=== PATIENT | female | born 1955 | race Caucasian/White ===

== ENCOUNTER → 2017-08-12 07:18 | Outpatient (CLI) | payer OTHER, SELFPAY ==
[2017-08-13 07:11] LABS: Hep C Antibodies <0.1 s/co ratio (0.0-0.9)
== END ==
PROVIDERS: Family Provider Family Medicine; PCP Family Medicine; Visit Provider Family Medicine
DX: Z00.00 Encounter for general adult medical examination without abnormal findings (principal)
CPT/HCPCS: 36415; 86803

== ENCOUNTER → 2018-03-09 07:00 | Outpatient (CLI) | payer OTHER, SELFPAY ==
--- NOTE | 2018-03-09 07:03 | BI_ITS ---
MAMMOGRAPHY - BILATERAL SCREENING REASON FOR EXAM: Female, 62 years old. Routine annual screening examination. PERTINENT HISTORY: Mother with breast cancer. TECHNIQUE: Digital bilateral breast higinio (3D mammographic acquisition) in the CC and MLO projections. 2-D mediolateral oblique (MLO) and craniocaudad (CC) views of both breasts were obtained. CAD: Full Field Digital Mammography with Computer Added Detection was performed. COMPARISON: Comparison is made with prior study dated January 19, 2017 and January 14, 2016. FINDINGS: Breast Composition: The breasts are heterogeneously dense, which may obscure small masses. There are no dominant masses or suspicious calcifications. No other significant abnormalities are identified. There has been no significant change since the prior study. BI/SCREENING MAMM (CAD), BILAT IMPRESSION: Stable bilateral screening mammogram. Yearly follow-up mammogram recommended. (A) ASSESSMENT CATEGORY: BIRADS Category 1: Negative. A letter regarding these results will be sent to the patient by the facility within 30 days. Approximately 10% of breast cancers are not detected by mammography. A normal mammogram should not delay biopsy of a clinically suspicious abnormality. [id number] Electronically Signed: Leander Crandall MD at 9:39 EST Tel [phone], Service support ,
== END ==
PROVIDERS: Family Provider Family Medicine; PCP Family Medicine; Referring Provider Obstetrics & Gynecology; Visit Provider Obstetrics & Gynecology
DX: Z12.31 Encounter for screening mammogram for malignant neoplasm of breast (principal)
CPT/HCPCS: 77063; 77067

== ENCOUNTER → 2019-03-16 06:56 | Outpatient (CLI) | payer OTHER, SELFPAY ==
--- NOTE | 2019-03-16 06:59 | BI_ITS ---
MAMMOGRAPHY - BILATERAL SCREENING REASON FOR EXAM: Female, 63 years old. Routine annual screening examination. PERTINENT HISTORY: Mother with breast cancer. TECHNIQUE: Digital bilateral breast anne (3D mammographic acquisition) in the CC and MLO projections. 2-D mediolateral oblique (MLO) and craniocaudad (CC) views of both breasts were obtained. CAD: Full Field Digital Mammography with Computer Added Detection was performed. COMPARISON: Comparison is made with prior study dated March 09, 2018 and January 19, 2017. FINDINGS: Breast Composition: The breasts are heterogeneously dense, which may obscure small masses. There are no dominant masses or suspicious calcifications. No other significant abnormalities are identified. There has been no significant change since the prior study. BI/SCREEN MAMM (CAD) W/ANNE BILAT IMPRESSION: Stable bilateral screening mammogram. Yearly follow-up mammogram recommended. (A) ASSESSMENT CATEGORY: BIRADS Category 1: Negative. A letter regarding these results will be sent to the patient by the facility within 30 days. Approximately 10% of breast cancers are not detected by mammography. A normal mammogram should not delay biopsy of a clinically suspicious abnormality. [id number] Electronically Signed: Leander Crandall, at 9:32 EST , Service support ,
== END ==
PROVIDERS: Family Provider Family Medicine; PCP Family Medicine; Referring Provider Obstetrics & Gynecology; Visit Provider Obstetrics & Gynecology
DX: Z12.31 Encounter for screening mammogram for malignant neoplasm of breast (principal)
CPT/HCPCS: 77063; 77067

== ENCOUNTER → 2020-03-18 07:12 | Outpatient (CLI) | payer OTHER, SELFPAY ==
[2020-03-18 07:52] LABS: Erythrocyte Sedimentation Rate 8 mm/hr (0-30)
[2020-03-18 08:26] LABS: CRP < 2.90 mg/L (0.0-3.0); Rheumatoid Factor < 10.0 IU/mL (<15)
[2020-03-22 20:07] LABS: Anti-Nuclear Antibody Test Negative (.)
== END ==
PROVIDERS: PCP Family Medicine; Referring Provider Family Medicine; Visit Provider Family Medicine
DX: M25.50 Pain in unspecified joint (principal)
CPT/HCPCS: 36415; 85652; 86038; 86140; 86431

== ENCOUNTER → 2020-03-27 07:16 | Outpatient (CLI) | payer OTHER, SELFPAY ==
--- NOTE | 2020-03-27 07:24 | BI_ITS ---
MAMMOGRAPHY - BILATERAL SCREENING REASON FOR EXAM: Female, 64 years old. Routine annual screening examination. PERTINENT HISTORY: Mother with breast cancer. TECHNIQUE: Digital bilateral breast anne (3D mammographic acquisition) in the CC and MLO projections. 2-D mediolateral oblique (MLO) and craniocaudad (CC) views of both breasts were obtained. CAD: Full Field Digital Mammography with Computer Added Detection was performed. COMPARISON: Comparison is made with prior study dated 03/16/2019 and 03/09/2018. FINDINGS: Breast Composition: The breasts are heterogeneously dense, which may obscure small masses. There are no dominant masses or suspicious calcifications. Benign appearing bilateral axillary lymph nodes. No other significant abnormalities are identified. There has been no significant change since the prior study. BI/SCRN MAMM (CAD)W/ANNE BILAT IMPRESSION: Stable bilateral screening mammogram. Yearly follow-up mammogram recommended. (A) ASSESSMENT CATEGORY: BIRADS Category 2: Benign. A letter regarding these results will be sent to the patient by the facility within 30 days. Approximately 10% of breast cancers are not detected by mammography. A normal mammogram should not delay biopsy of a clinically suspicious abnormality. [id number] Electronically Signed: Leander Crandall MD at 8:37 EST , Service support ,
== END ==
PROVIDERS: PCP Family Medicine; Referring Provider Obstetrics & Gynecology; Visit Provider Obstetrics & Gynecology
DX: Z12.31 Encounter for screening mammogram for malignant neoplasm of breast (principal)
CPT/HCPCS: 77063; 77067

== ENCOUNTER 2020-04-12 05:22 | Day surgery (SDC) | payer SELFPAY ==
[2020-04-12] VITALS (10 sets, daily range): BP systolic 92–163; BP diastolic 7–134; PULSE 54–68; RESP 16; TEMP 36–36.6; O2SAT 16–100; BMI 25.2
[2020-04-12] MEDS: Lactated Ringers 1,000 ML 100 ML IV (06:05)
--- NOTE | 2020-04-12 06:11 | PCM.HP.STD ---
Problem List (1) Family history of colon cancer in mother Status: Acute History of Present Illness Date of Admission: 04/12/20 The patient is a 64 year old F who presents for a colonoscopy. Her previous colonoscopy was August 09, 2014. She has a very strong family history of colon problems. Her mother just had colon cancer resected. She has a sister who had a malignant polyp. Also a brother who has had a dysplastic polyp. Fortunately the patient herself has not had acute colonic pathology. Genetic testing on the patient's mother is pending. She otherwise feels well. No unexpected weight loss. No abdominal pain. No change in bowel habits. Past Medical History Allergies No Known Allergies Allergy (Verified 04/12/20 05:45) Home Medications: Ambulatory Orders Medication Instructions Recorded Aspirin [Aspirin, Baby] 81 mg PO DAILY@0800 08/06/14 Black Cohosh 80 mg PO DAILY 08/06/14 Calcium Carbonate/Vitamin D3 1 each PO BID 08/06/14 [Calcium 600 + Vit D 800 Tab] Smoking Status: Never smoker Review of Systems Constitutional: Denies: Weight Change Cardiovascular: Denies: Chest Pain Respiratory: Denies: Shortness of Breath Gastrointestinal: Denies: Abdominal Pain, Hematochezia, Melena Endocrine: Denies: Change in Body Habitus VTE Information - Inpt Only VTE Present on Admission: No - Physical Exam Vitals/I&O's: Vital Signs Temp Pulse Resp BP Pulse Ox 97.9 F 64 16 124/7 H 98 04/12/20 05:49 04/12/20 05:49 04/12/20 05:49 04/12/20 05:49 04/12/20 05:49 Oxygen Delivery Method Room Air Weight: 151 lb 2 oz Body Mass Index (BMI) 25.2 General: Alert, Oriented x3, Cooperative, No apparent distress HEENT: Atraumatic Oral: Moist Mucosa Lungs: Clear to auscultation, Normal air movement Cardiovascular: Regular rate, Regular Rhythm Abdomen: Bowel Sounds Present, Soft, Non Tender Extremities: No Calf Tenderness Neurological: - - Cognition intact Psych/Mental Status: Normal Affect Microbiology Past 72 Hours 04/11/20 13:00 Interface Orders SARS-CoV-2 Antigen (Rapid) - Final Current Medications Lactated Ringer's () 1,000 mls @ 100 mls/hr IV .Q10H BEVERLY Last Admin: 04/12/20 06:05 Dose: 100 mls/hr Documented by: Assessment/Plan All Active Problems Family history of colon cancer in mother (Acute) The patient presents via open access for a screening colonoscopy with possible biopsy or polypectomy is indicated. She is aware of the technique, benefit, risk, alternatives. She has had an opportunity to ask and have questions answered. We will proceed as noted. Juan Diego Flowers M.D., F.A.C.S.
--- NOTE | 2020-04-12 07:00 | OP.CCLET_ITS ---
04/12/2020 Munir Keyes Re : Colonoscopy procedure for Hanane Poncecathy Keyes This procedure was performed on Sunday, April 12, 2020. My impressions and recommendations are as follows: Impressions : - Non-thrombosed external hemorrhoids and internal hemorrhoids that prolapse with straining, but spontaneously regress to the resting position (Grade II) found on digital rectal exam. - Diverticulosis in the sigmoid colon. - Tortuous colon. - The examination was otherwise normal. - No specimens collected. Recommendations : - Discharge patient to home. - Resume previous diet. - Continue present medications. - Repeat colonoscopy in 5 years for surveillance. My findings are described in the full procedure note, which is enclosed. If I can be of further assistance, please feel free to contact me at Doctor phone number(s): Work: . Sincerely, Juan Diego Flowers MD 04/12/2020 6:59:00 AM This report has been signed electronically.
--- NOTE | 2020-04-12 07:00 | OP.COLON_ITS ---
Patient Name: Hanane Engel Procedure Date: 04/12/2020 6:19 AM Date of : 1955 Age: 64 Procedure: Colonoscopy Indications: Screening in patient at increased risk: Family history of 1st-degree relative with colorectal cancer Providers: Juan Diego Flowers MD Referring MD: Munir Keyes Medicines: Midazolam 5 mg IV, Meperidine 100 mg IV Patient Profile: Last Colonoscopy: July 2014. Complications: No immediate complications. Procedure: Pre-Anesthesia Assessment: - Prior to the procedure, a History and Physical was performed, and patient medications and allergies were reviewed. The patient's tolerance of previous anesthesia was also reviewed. The risks and benefits of the procedure and the sedation options and risks were discussed with the patient. All questions were answered, and informed consent was obtained. Prior Anticoagulants: The patient has taken no previous anticoagulant or antiplatelet agents. ASA Grade Assessment: I - A normal, healthy patient. After reviewing the risks and benefits, the patient was deemed in satisfactory condition to undergo the procedure. After I obtained informed consent, the scope was passed under direct vision. Throughout the procedure, the patient's blood pressure, pulse, and oxygen saturations were monitored continuously. The pediatric colonoscope was introduced through the anus and advanced to the cecum, identified by appendiceal orifice and ileocecal valve. The colonoscopy was technically difficult and complex due to a tortuous colon. Successful completion of the procedure was aided by increasing the dose of sedation medication. The patient tolerated the procedure well. The quality of the bowel preparation was good. The ileocecal valve and the appendiceal orifice were photographed. Moderate Sedation: Moderate (conscious) sedation was personally administered by the endoscopist. The following parameters were monitored: oxygen saturation, heart rate, blood pressure, and response to care. Total physician intraservice time was 20 minutes. Scope In: 6:32:49 AM Scope Withdrawal Time 0 hours 12 minutes 17 seconds Scope Out: 6:54:11 AM Total Procedure Duration Time 0 hours 21 minutes 22 seconds Findings: The digital rectal exam findings include non-thrombosed external hemorrhoids and internal hemorrhoids that prolapse with straining, but spontaneously regress to the resting position (Grade II). Scattered diverticula were found in the sigmoid colon. The colon (entire examined portion) was moderately tortuous. Advancing the scope required using manual pressure. The exam was otherwise without abnormality. Impression: - Non-thrombosed external hemorrhoids and internal hemorrhoids that prolapse with straining, but spontaneously regress to the resting position (Grade II) found on digital rectal exam. - Diverticulosis in the sigmoid colon. - Tortuous colon. - The examination was otherwise normal. - No specimens collected. Recommendation: - Discharge patient to home. - Resume previous diet. - Continue present medications. - Repeat colonoscopy in 5 years for surveillance. Procedure Code(s): --- Professional --- 47065, Colonoscopy, flexible; diagnostic, including collection of specimen(s) by brushing or washing, when performed (separate procedure) 88861, 59, Moderate sedation services provided by the same physician or other qualified health health care technician performing the diagnostic or therapeutic service that the sedation supports, requiring the presence of an independent trained observer to assist in the monitoring of the patient's level of consciousness and physiological status; initial 15 minutes of intraservice time, patient age 5 years or older Diagnosis Code(s): --- Professional --- Z80.0, Family history of malignant neoplasm of digestive organs K64.1, Second degree hemorrhoids K64.4, Residual hemorrhoidal skin tags K57.30, Diverticulosis of large intestine without perforation or abscess without bleeding Q43.8, Other specified congenital malformations of intestine CPT copyright 2017 [employer]. All rights reserved. The codes documented in this report are preliminary and upon test pilot review may be revised to meet current compliance requirements. Juan Diego Flowers MD 04/12/2020 6:59:00 AM This report has been signed electronically. Number of Addenda: 0 Note Initiated On: 04/12/2020 6:19 AM
== END 2020-04-12 07:51 | disposition home or self-care (01) ==
LOC: EN 05:24 → AC 05:24
PROVIDERS: PCP Family Medicine; Referring Provider Family Medicine; Visit Provider Surgery
PROC: 0DJD8ZZ Inspection of Lower Intestinal Tract, Via Natural or Artificial Opening Endoscopic (ICD-10-PCS; CPT 45378; principal; 2020-04-12 06:25)
DX: Z12.11 Encounter for screening for malignant neoplasm of colon (principal); Z80.0 Family history of malignant neoplasm of digestive organs; Z79.82 Long term (current) use of aspirin; K57.30 Diverticulosis of large intestine without perforation or abscess without bleeding; K64.4 Residual hemorrhoidal skin tags; K64.1 Second degree hemorrhoids; Q43.8 Other specified congenital malformations of intestine
CPT/HCPCS: 45378; 87426; 99152; 99153; C9803; J7120

== ENCOUNTER 2021-04-09 07:38 | Outpatient (CLI) | payer BC, SELFPAY ==
--- NOTE | 2021-04-09 07:42 | BI_ITS ---
MAMMOGRAPHY - BILATERAL SCREENING REASON FOR EXAM: Female, 65 years old. Routine annual screening examination. PERTINENT HISTORY: Mother with breast cancer. TECHNIQUE: Digital bilateral breast anne (3D mammographic acquisition) in the CC and MLO projections. 2-D mediolateral oblique (MLO) and craniocaudad (CC) views of both breasts were obtained. CAD: Full Field Digital Mammography with Computer Added Detection was performed. COMPARISON: Comparison is made with prior study dated 09/24/2020 and 03/16/2019. FINDINGS: Breast Composition: The breasts are heterogeneously dense, which may obscure small masses. There are no dominant masses or suspicious calcifications. No other significant abnormalities are identified. There has been no significant change since the prior study. BI/SCRN MAMM (CAD)W/ANNE BILAT IMPRESSION: Stable bilateral screening mammogram. Yearly follow-up mammogram recommended. (A) ASSESSMENT CATEGORY: BIRADS Category 1: Negative. A letter regarding these results will be sent to the patient by the facility within 30 days. Approximately 10% of breast cancers are not detected by mammography. A normal mammogram should not delay biopsy of a clinically suspicious abnormality. [id number] Electronically Signed: Leander Crandall MD at 9:13 EST ,
== END 2021-04-09 23:59 | disposition home or self-care (01) ==
LOC: OPBI 07:40
PROVIDERS: PCP Family Medicine; Referring Provider Obstetrics & Gynecology; Visit Provider Obstetrics & Gynecology
DX: Z12.31 Encounter for screening mammogram for malignant neoplasm of breast (principal)
CPT/HCPCS: 77063; 77067

== ENCOUNTER → 2022-04-22 | Outpatient (CLI) | payer BC, SELFPAY ==
--- NOTE | 2022-04-22 09:17 | BI_ITS ---
MAMMOGRAPHY - BILATERAL SCREENING REASON FOR EXAM: Female, 66 years old. Routine annual screening examination. PERTINENT HISTORY: Mother with breast cancer. TECHNIQUE: Digital bilateral breast anne (3D mammographic acquisition) in the CC and MLO projections. 2-D mediolateral oblique (MLO) and craniocaudad (CC) views of both breasts were obtained. CAD: Full Field Digital Mammography with Computer Added Detection was performed. COMPARISON: Comparison is made with prior study dated 04/09/2021 and 09/25/2019 FINDINGS: Breast Composition: The breasts are heterogeneously dense, which may obscure small masses. There are no dominant masses or suspicious calcifications. No other significant abnormalities are identified. There has been no significant change since the prior study. BI/SCRN MAMM (CAD)W/ANNE BILAT IMPRESSION: Stable bilateral screening mammogram. Yearly follow-up mammogram recommended. (A) ASSESSMENT CATEGORY: BIRADS Category 1: Negative. A letter regarding these results will be sent to the patient by the facility within 30 days. Approximately 10% of breast cancers are not detected by mammography. A normal mammogram should not delay biopsy of a clinically suspicious abnormality. [id number] Electronically Signed: Leander Crandall MD at 10:27 EST ,
[2022-04-22 21:05] LABS: T4 Free Direct 0.81 ng/dL (0.76-1.46); Thyroid Stim Hormone (TSH) 1.66 uIU/mL (0.358-3.74)
== END | disposition home or self-care (01) ==
LOC: OPBI 09:16
PROVIDERS: PCP Family Medicine; Referring Provider Obstetrics & Gynecology; Visit Provider Obstetrics & Gynecology
DX: Z12.31 Encounter for screening mammogram for malignant neoplasm of breast (principal); R53.83 Other fatigue
CPT/HCPCS: 36415; 77063; 77067; 84439; 84443

== ENCOUNTER → 2022-08-19 | Outpatient (CLI) | payer MEDICARE, BC, SELFPAY ==
[2022-08-19 08:40] LABS: Hepatitis B Surface Antibody Reactive; Rubella IgG Reactive (Nonreactive)
[2022-08-20 05:07] LABS: Hepatitis A AB, Total Negative (Negative); Mumps Antibody,IgG 89.4 AU/mL (Immune >10.9); Rubeola IgG Ab > 300.0 AU/mL (Immune >16.4)
== END | disposition home or self-care (01) ==
LOC: LAB 07:23
PROVIDERS: PCP Family Medicine; Referring Provider Family Medicine; Visit Provider Family Medicine
DX: Z11.59 Encounter for screening for other viral diseases (principal)
CPT/HCPCS: 36415; 86706; 86708; 86735; 86762; 86765

== ENCOUNTER → 2022-08-25 | Outpatient (CLI) | payer MEDICARE, BC, SELFPAY | END | disposition home or self-care (01) | LOC: SL 11:09 | PROVIDERS: PCP Family Medicine; Referring Provider Family Medicine; Visit Provider Family Medicine | DX: G47.33 Obstructive sleep apnea (adult) (pediatric) (principal) | CPT/HCPCS: 95806 ==

== ENCOUNTER → 2022-11-04 | Outpatient (CLI) | payer MEDICARE, BC, SELFPAY ==
--- NOTE | 2022-11-04 10:50 | BD_ITS ---
STUDY: DUAL ENERGY X-RAY ABSORPTIOMETRY / DXA REASON FOR EXAM: Female, 67 years old. 627.8Menopausal postmenopausal BONE DENSITY REASON FOR EXAM TECHNIQUE: Bone Mineral Density (BMD) measurements of lumbar spine and bilateral hips were obtained. COMPARISON: None. FINDINGS: Lumbar Spine (L1-L4): g/cm2 (0.735) / T-score (-2.8) / Z-score (-1.1) Findings are suggestive of osteoporosis with a high fracture risk. Left Femur Total: g/cm2 (0.835) / T-score (-0.9) / Z-score (0.4) Left Femoral Neck: g/cm2 (0.711) / T-score (-1.2) / Z-score (0.3) Right Femur Total: g/cm2 (0.789) / T-score (-1.3) / Z-score (0.0) Right Femoral Neck: g/cm2 (0.673) / T-score (-1.6) / Z-score (-0.1) BD/Dexa Bone Density Study IMPRESSION: The patient is considered osteoporotic as outlined below according to World Chase Organization (WHO) criteria with a high fracture risk. Reference Information: The T-score is the number of standard deviations above or below the standard which is normal for young adults at their peak bone mineral density. The World Health Organization (WHO) interprets the T-scores as follows: Above -1 Normal bone density Between -1 and -2.5 Osteopenia Equal to / or below -2.5 Osteoporosis As a practical clinical guideline, osteopenia may be graded as follows: Mild -1 through -1.5 Moderate -1.6 through -2.0 Severe -2.1 through -2.4 The Z-score is the number of standard deviations above or below age-matched controls. A Z-score of less than -1.5 would be considered abnormal. References: 1. NIH Osteoporosis and Related Bone Diseases www osteo.org 2. International Society for Clinical Densitometry www iscd.org 3. National Osteoporosis Foundation www nof.org Electronically Signed: Leander Crandall MD at 10:55 EDT ,
== END | disposition home or self-care (01) ==
LOC: OPBD 10:47
PROVIDERS: PCP Family Medicine; Referring Provider Family Medicine; Visit Provider Family Medicine
DX: Z78.0 Asymptomatic menopausal state (principal)
CPT/HCPCS: 77080

== ENCOUNTER → 2023-01-18 | Outpatient (CLI) | payer MEDICARE, BC, SELFPAY ==
--- NOTE | 2023-01-18 09:26 | STE_ITS ---
Reason For Study: Dyspnea Stress Results Protocol: Buzz Protocol Maximum Predicted HR: 155 bpm Target HR: 132 bpm % Maximum Predicted HR: 100 % DurationHeart Rate Stage (mm:ss) (bpm) BP Comment Baseline 80 118/70No Chest Pain Buzz Protocol Stage I 3:00 90 122/70No Chest Pain Buzz Protocol Stage II 3:00 109 130/72No Chest Pain Buzz Protocol Stage III 3:00 130 132/70No Chest Pain Buzz Protocol Stage IV 2:00 155 146/70No Chest Pain; Mild Dypsnea Recovery 86 112/70No Chest Pain Stress Duration: 11:00 mm:ss Maximum Stress HR: 155 bpm METS: 13 Baseline Echocardiogram Findings Stress Echo Wall motion Data Resting WM Intermediate WM Stress WM Time Measurements MV dec time: 0.15 sec Doppler Measurements & Calculations MV E max pasha: 97.1 cm/sec Lat Peak E' Pasha: 13.3 cm/sec Med Peak E' Pasha: 9.5 cm/sec MV A max pasha: 91.5 cm/sec E/E' lat: 7.3 E/E' med: 10.2 MV E/A: 1.1 MV dec slope: 493.9 cm/sec2 TR max pasha: 223.9 cm/sec TR max P.1 mmHg ECHO/Stress Test Echo w/o Contrast Interpretation Summary Exercise stress echocardiogram. Indication dyspnea. Resting EKG demonstrates normal sinus rhythm with a rate of 70 bpm resting bloo d pressure is 118/70 mmHg. The patient exercised according to the regular Buzz protocol for a total duration of 11 minutes. The maximum heart rate attained was 155 bpm which was 100% max impacte d heart rate the maximum workload was 13.4 metabolic equivalents. Patient completed 2 minutes in to stage IV of the Buzz protocol. At rest there were no ST or T wave changes noted to suggest isc hemia and at peak exercise no ST or T wave changes were noted suggest ischemia. The test was term inated due to the target heart rate achieved. The peak blood pressure was 146/70 mmHg which was a good blood pressure response to exercise. No chest pain, arrhythmias, or dyspnea was noted. Stress echocardiogram. Resting echocardiogram demonstrated preserved left ventricular systolic functio n with an equivocal mitral valve prolapse noted estimated ejection fraction was 60% at rest. There was also a redundant atrial septum noted. At peak exercise there was thickening of all hall with re duction in low ventricular cavity size peaking ejection fraction of 70%. No wall motion abnorm alities were noted. Conclusion: Normal exercise stress echocardiogram at a high workload. Good functional aerobic capacity. Equivocal mitral valve prolapse. Redundant intra-atrial septum. Ordering Physician: Munir Keyes Referring Physician: Munir Keyes Performed By: Diane Simmons, GINO, RVT
== END | disposition home or self-care (01) ==
LOC: CVS 09:25
PROVIDERS: PCP Family Medicine; Referring Provider Family Medicine; Visit Provider Family Medicine
DX: R06.02 Shortness of breath (principal)
CPT/HCPCS: 93017; 93350

== ENCOUNTER → 2023-05-11 | Outpatient (CLI) | payer MEDICARE, BC, SELFPAY ==
--- NOTE | 2023-05-11 07:16 | BI_ITS ---
MAMMOGRAPHY - BILATERAL SCREENING REASON FOR EXAM: Female, 67 years old. Routine annual screening examination. PERTINENT HISTORY: Mother with breast cancer. TECHNIQUE: Digital bilateral breast anne (3D mammographic acquisition) in the CC and MLO projections. 2-D mediolateral oblique (MLO) and craniocaudad (CC) views of both breasts were obtained. CAD: Full Field Digital Mammography with Computer Added Detection was performed. COMPARISON: Comparison is made with prior study dated April 22, 2022 and April 09, 2021. FINDINGS: Breast Composition: The breasts are heterogeneously dense, which may obscure small masses. There are no dominant masses or suspicious calcifications. No other significant abnormalities are identified. There has been no significant change since the prior study. BI/SCRN MAMM (CAD)W/ANNE BILAT IMPRESSION: Stable bilateral screening mammogram. Yearly follow-up mammogram recommended. (A) ASSESSMENT CATEGORY: BIRADS Category 1: Negative. A letter regarding these results will be sent to the patient by the facility within 30 days. Approximately 10% of breast cancers are not detected by mammography. A normal mammogram should not delay biopsy of a clinically suspicious abnormality. [id number] Electronically Signed: Leander Crandall MD at 8:53 EDT ,
--- OUTSIDE RECORDS SUMMARY | 2023-05-11 07:20 | XMS RPT_ITS | CCD ---
Author Name Unknown Address [address] [place] [address] Organization [facility] Care Team Providers Care Lead Project Engineer Name Role Phone Curtis Keyes MD Primary Care Provider [phone] CURTIS KEYES Referring Unavailable CURTIS KEYES Primary Care Unavailable CURTIS KEYES Primary Care Unavailable CURTIS KEYES Attending Unavailable ERNST KERN Attending Unavailable CURTIS KEYES Primary Care Unavailable Medications Current Medications Medication Drug Class(es) Dates Sig (Normalized) Sig (Original) perflutren lipid microspheres 1.3 mL in NaCl (PF) 0.9% 10 mL injection (DEFINITY) (7 sources) Start: 08-13-2022 End: 11-12-2023 perflutren lipid microspheres 1.3 mL in NaCl (PF) 0.9% 10 mL injection (DEFINITY) 125 ml sodium chloride 9 mg/ml prefilled syringe (7 sources) Start: 08-13-2022 End: 11-12-2023 sodium chloride 0.9 % (flush) 10 mL (BD POSIFLUSH) Completed/Discontinued Medications Medication Drug Class(es) Dates Sig (Normalized) Sig (Original) alendronic acid 70 mg oral tablet (5 sources) Bisphosphonate Start: 11-09-2022 End: 03-31-2024 take 1 tablet by mouth every week alendronate (FOSAMAX) 70 mg tablet Indications: Osteoporosis, unspecified osteoporosis type, unspecified pathological fracture presence Take 1 tablet by mouth one time a week. Take with a full glass of water, on an empty stomach; do NOT lie down for 30minutes. 12 tablet 3 11/12/2022 04/01/2023 Discontinued Problems Active Problems Problem Classification Problem Date Documented Date Episodic/Chronic Immunizations and screening for infectious disease (3 sources) Viral screening status; Translations: [Encounter for screening for other viral diseases] Onset: 07-22-2022 Episodic Malaise and fatigue (1 source) Fatigue; Translations: [Other fatigue] Episodic Menopausal disorders (18 sources) Atrophy of vagina; Translations: [Postmenopausal atrophic vaginitis] Onset: 12-21-2014 12-21-2014 Chronic Osteoporosis (5 sources) Osteoporosis; Translations: [Age-related osteoporosis without current pathological fracture] Onset: 11-09-2022 11-12-2022 Chronic Other lower respiratory disease (1 source) Dyspnea; Translations: [Shortness of breath] Episodic Other lower respiratory disease (1 source) Shortness of breath; Translations: [SOB (shortness of breath)] Onset: 08-13-2022 Episodic Other screening for suspected conditions (not mental disorders or infectious disease) (1 source) Encounter for screening for malignant neoplasm of cervix; Translations: [Encounter for screening for malignant neoplasm of cervix] Onset: 07-22-2022 Episodic Prolapse of female genital organs (18 sources) Incomplete uterovaginal prolapse; Translations: [Incomplete uterovaginal prolapse] Onset: 12-19-2013 12-19-2013 Chronic Residual codes; unclassified (3 sources) Obstructive sleep apnea syndrome; Translations: [Obstructive sleep apnea (adult) (pediatric)] Chronic Residual codes; unclassified (1 source) Postmenopausal state; Translations: [Asymptomatic menopausal state] Episodic Past or Other Problems Problem Classification Problem Date Documented Da te Episodic/Chronic Abdominal pain (9 sources) Female genital organ symptoms; Translations: [Pelvic and perineal pain] Onset: 12-21-2014 12-21-2014 Episodic Nonmalignant breast conditions (9 sources) Breast lump; Translations: [Unspecified lump in unspecified breast] Onset: 11-09-2007 11-09-2007 Episodic Results Test Name Value Interpretation Reference Range Facil ity Vital Signs Date Time Vital Sign Value Performing Clinician Faci lity 08-13-2022 08:16-0400 Body weight 73.48 kg Curtis Keyes MD Work Phone: [facility] 08-13-2022 08:16-0400 Diastolic blood pressure 68 mm[Hg] Curtis Keyes MD Work Phone: [facility] 08-13-2022 08:16-0400 Heart rate 66 /min Curtis Keyes MD Work Phone: [facility] 08-13-2022 08:16-0400 SaO2% (BldA) [Mass fraction] 95 % Curtis Keyes MD Work Phone: [facility] 08-13-2022 08:16-0400 Systolic blood pressure 102 mm[Hg] Curtis Keyes MD Work Phone: [facility] Encounters Encounter Date Encounter Type Care Provider Facility Start: 04-01-2023 Refill Curtis Keyes MD Work Phone: [facility] Procedures Date Procedure Procedure Detail Performing Clinician Start: 04-22-2022 Lipid panel [facility] Provid er Start: 04-22-2022 Lipid 1996 panel - S lavonne or Plasma Curtis Keyes MD Work Phone: Start: 04-22-2022 Mammography Curtis Lewis MD Work Phone: Start: 04-09-2021 Mammography Ernst hoyos MD Work Phone: Start: 04-12-2020 Colonoscopy Ernst hoyos MD Work Phone: Plan of Treatment Date Care Activity Detail Author Start: 07-23-2027 HPV TESTING HPV TESTING [facility] Start: 07-23-2027 PAP TESTING PAP TESTING [facility] Start: 04-22-2027 Lipid 1996 panel - Serum or Plasma Lipid Screening [facility] Start: 04-22-2027 Lipid panel Lipid Screening [facility] Start: 04-22-2027 LIPID SCREEN LIPID SCREEN [facility] Start: 04-22-2025 DIABETES SCREEN DIABETES SCREEN [facility] Start: 04-22-2025 Diabetes Screening Diabetes Screening [facility] Start: 04-12-2025 Colonoscopy COLONOSCOPY [facility] Start: 04-12-2025 COLORECTAL CANCER SCREENING COLORECTAL CANCER SCREENING [facility] Start: 04-12-2025 Screening for malignant neoplasm of colon [facility] Start: 03-18-2025 LIPID SCREEN LIPID SCREEN [facility] Start: 06-21-2023 HPV TESTING HPV TESTING [facility] Start: 06-21-2023 PAP TESTING PAP TESTING [facility] Start: 04-22-2023 Mammography [facility] Start: 04-22-2023 Screening for malignant neoplasm of breast Mammogram Screening [facility] Start: 03-01-2023 Advance Directive Discussion Advance Directive Discussion [facility] Start: 03-01-2023 Depression Assessment Depression Assessment [facility] Start: 10-30-2022 Covid-19 Vaccine ( season) Covid-19 Vaccine ( season) [facility] Start: 10-30-2022 Influenza vaccination [facility] Start: 2022 ADVANCE DIRECTIVE DISCUSSION ADVANCE DIRECTIVE DISCUSSION [facility] Start: 2022 BONE DENSITY BONE DENSITY [facility] Start: 2022 COVID-19 VACCINE (6 - Moderna series) COVID-19 VACCINE (6 - Moderna series) [facility] Start: 2022 Pneumococcal Vaccine: 65+ (2 - PCV) Pneumococcal Vaccine: 65+ (2 - PCV) [facility] Start: 2022 Pneumococcal Vaccine: 65+ (2 of 2 - PCV) Pneumococcal Vaccine: 65+ (2 of 2 - PCV) [facility] Start: 2022 PNEUMOCOCCAL: 65+ (2 - PCV) PNEUMOCOCCAL: 65+ (2 - PCV) [facility] Start: 08-13-2022 End: 10-13-2022 Hepatitis B virus surface Ab [Presence] in Serum HEP B SURF AB Lab Routine Screening for viral disease Expected: 08/13/2022, Expires: 10/13/2022 [facility] Work Phone: Immunizations Immunization Date Immunization Notes Care Provider [facility] 12-01-2021 influenza, seasonal, injectable Curtis Keyes MD Work Phone: [facility] 12-01-2021 influenza virus vacc ine, unspecified formulation Curtis Keyes MD Work Phone: [facility] 01-01-2021 COVID-19 original vaccine, full dose, monovalent (MODERNA) Curtis Keyes MD Work Phone: [facility] 11-07-2020 Influenza, injectabl e, Madin Lindsay Canine Kidney, preservative free, quadrivalent Curtis Keyes MD Work Phone: [facility] 04-01-2020 COVID-19 original vaccine, full dose, monovalent (MODERNA) Curtis Keyes MD Work Phone: [facility] 03-04-2020 COVID-19 original vaccine, full dose, monovalent (MODERNA) Ernst Kern MD Work Phone: [facility] 11-18-2019 pneumococcal polysaccharide vaccine, 23 valent Curtis Keyes MD Work Phone: [facility] 12-13-2018 influenza virus vacc ine, unspecified formulation Curtis Keyes MD Work Phone: [facility] 03-06-2018 zoster vaccine recombinant Curtis Keyes MD Work Phone: [facility] 09-16-2017 zoster vaccine recombinant Curtis Keyes MD Work Phone: [facility] 10-21-2014 tetanus and diphther ia toxoids, adsorbed, preservative free, for adult use (5 Lf of tetanus toxoid and 2 Lf of diphtheria toxoid) Curtis Keyes MD Work Phone: [facility] 10-30-2010 influenza virus vacc ine, unspecified formulation Ernst Kern MD Work Phone: [facility] 03-01-2007 tetanus and diphther ia toxoids, adsorbed, preservative free, for adult use (2 Lf of tetanus toxoid and 2 Lf of diphtheria toxoid) Ernst Kern MD Work Phone: [facility] Payers Date Payer Category Payer Medicare MEDICARE MEDICAR E A AND B [id number] 2022-Present [phone] [place] [address] Medicare [id number] 2022 Medicare [id number] 2022 Medicare [id number] 2022 Unknown [id number] 2022 Unknown [id number] Social History Date Type Detail Facility Start: 04-13-2012 End: 07-22-2022 Tobacco smoking status PAIS Never smoked tobacco [facility] Start: 04-13-2012 End: 07-22-2022 Tobacco use and exposure Smokeless tobacco non-user [facility] Start: 12-23-2020 End: 08-13-2022 Alcohol intake Current drinker of alcohol (finding) [facility] Start: 1955 Sex Assigned At Not on file [facility] Start: 07-22-2022 End: 08-13-2022 History of Social function [facility] Work Phone: Start: 07-22-2022 End: 08-13-2022 Tobacco use panel [facility] Work Phone: Adult Depression Screening Assessment 0 [facility] Work Phone: Medical Equipment Procedure Code Equipment Code Equipment Origin al Text Equipment Identifier Dates [id number] Implant - [id number] Start: 02-07-2014 Clinical Notes 07-04-2014 to 04-01-2023 Telephone Encounter - Elizabeth Iraheta LPN - 04/01/2023 1:58 PM ESTTelephone Encounter - Curtis Keyes MD - 01/27/2023 12:25 PM ESTTelephone Encounter - Sally Christiansen LPN - 10/14/2022 2:46 PM EDT Note Date & Type Note Facility 04-01-2023 Miscellaneous Notes Change of pharmacy. Patient has been identified by name and date of : Yes, Patient phones for refill(s): Requested Prescriptions Pending Prescriptions Disp Refills alendronate (FOSAMAX) 70 mg tablet 12 tablet 3 Sig: Take 1 tablet by mouth one time a week. Take with a full glass of water, on an empty stomach; do NOT lie down for 30minutes. Date of last office visit in primary care: 08/13/2022 Date of next office visit in primary care: Visit date not found Please advise. Thank you. Elizabeth Iraheta LPN. documented in this encounter [facility] 01-27-2023 Miscellaneous Notes Ok to do documented in this encounter [facility] 10-14-2022 Miscellaneous Notes Yes was received. Is now signed and faxed as requested. [facility] asking if pcp received the form for sleep apnea appliance, they faxed to pcp office yesterday, for pcp to sign? Please phone [facility] with reply. documented in this encounter [facility] 09-17-2022 Miscellaneous Notes Fax as requested. Ok, printed. We may have to forward the sleep test results as well Spoke with patient regarding below. Patient states that she had HSAT at [facility] and it was read by Dr. Moore. Reports that it was noted she may benefit from sleep apnea mouth guard and Mauricio at the sleep lab recommended [facility]. Pt states that she would like to try all conservative measure's first and that she doesn't want to see sleep medicine at this time. Pt requesting order for mouthguard impression for sleep apnea be faxed to [facility]. Order pended, please file if agreeable, nursing to fax as noted below. Diane Ferrera MA I still don't know why dental group is involved and calling us. Did she ask us to send it there?? Can we see why. Sleep study shows at least mild wilson. I recommend autopap machine and seeing sleep med. Patient already had home sleep study. Report to be placed on provider's desk. ? We were supposed to be setting her up with a home sleep test with us. I am not sure why they ar even involved. Abdullahi from [facility] states she received order for sleep apnea test but needs an Rx for the sleep apnea machine. Please fax to [phone]. Janice Jordan LPN documented in this encounter [facility] 08-21-2022 Miscellaneous Notes See later mychart messages, going to pharmacy for injections. Bashir Thomas PA-C Can MyChart patient with travel lab results. See scanned documents. Scan on 08/19/2022 9:17 AM by External ProviderYAKELIN: Miscellaneous Lab documented in this encounter [facility] 08-13-2022 Note HNO ID: [id number] Author: Curtis Keyes MD Service: ? Author Type: Physician Type: Progress Notes Filed: 08/13/2022 9:12 AM Note Text: Patient presents with: Orders: BMD to be done at [facility] HPI: Patient presents today for office visit for follow up. Has never completed bone density test would like to have done at [facility]. Questioning sleep apnea. Sleeps well: No. Feels rested on awakening: No No daytime fatigue: Yes always fatigued and tired. Snoring: Yes Some witnessed apnea. Had been wearing mouth guard and stopped. Did stop saw dentist yesterday and has some shifting from shifting. Asking about baseline echo or stress test. Notes some shortness of breath when going up steps. Would like to have as baseline. No cough or chest pain. No wheezing. Or swelling. Travel to [place] soon. Will be gone for a month. Meeting with the health department travel nurse. Going to [facility]. Needs tdap, hep b and mmr titers. Check ears. Has blood flow screening from work to review. Normal. MEDICATIONS: Current Outpatient Medications Medication Sig MAGNESIUM ORAL Take by mouth. vit B12/intrinsic fact/folate (INTRINSI [id number] ORAL) Take by mouth. krill oil 500 mg cap Take 1 capsule by mouth once daily. CYANOCOBALAMIN, VITAMIN B-12, (VITAMIN B-12 ORAL) Take 300 mg by mouth once daily. Combo with Folate 400 mg Multivitamin (DAILY MULTIVITAMIN) ORAL Tab Take one(1) tablet daily. CALTRATE-600 PLUS VITAMIN D3 600 MG-200 UNIT TAB Take one(1) tablet two(2) times daily. No current facility-administered medications for this visit. ALLERGIES: ALLERGIES No Known Allergies PAST MEDICAL HISTORY Diagnosis Date Cystocele Diverticulosis of colon (without mention of hemorrhage) Hemorrhage of rectum and anus Hx of fracture of arm right forearm Pure hypercholesterolemia hdl is 102 in 2017 Rectocele Unspecified closed fracture of ankle Ankle fracture Unspecified hemorrhoids without mention of complication Uterine prolapse PAST SURGICAL HISTORY Procedure Laterality Date APPENDECTOMY COLONOSCOPY FLX DX W/COLLJ SPEC WHEN PFRMD 01/09/05 COLONOSCOPY FLX DX W/COLLJ SPEC WHEN PFRMD 08-06-14 LIGJ DIVJ AND/EXCJ VARICOSE VEIN CLUSTER 1 LEG Varicose Vein Surgery - No complications OTHER 2011 right forearm fracture; permanent plates PAST SURGICAL HISTORY OF ANKLE PAST SURGICAL HISTORY OF 01/2014 Uphold sacrospinous hysteropexy.Cystocele repair Rectocele repair FAMILY HISTORY Problem Relation Age of Onset Osteoporosis Mother Hypertension Mother Breast Cancer Mother other (Sarcoidosis) Mother Lipids Father High Cholesterol Diabetes Maternal Grandmother Coronary Artery Disease Maternal Grandmother Coronary Artery Disease Paternal Grandfather Social History Tobacco Use Smoking status: Never Smokeless tobacco: Never Vaping Use Vaping Use: Never used Substance Use Topics Alcohol use: Yes Comment: Seldom Drug use: No Reviewed current medications, allergies, past medical history, surgical history, family history and social history today. REVIEW OF SYSTEMS All other reviewed and negative other than HPI. HEALTH MAINTENANCE: Reviewed health maintenance issues today and recommended the following in detail. HIV SCREENING Never done DTAP,TDAP,TD(1 - Tdap) due on 10/22/2014 DEPRESSION ASSESSMENT Never done DIABETES SCREEN due on 05/03/2022 VITALS: BP 102/68 Pulse 66 Wt 73.5 kg (162 lb) LMP 2009 SpO2 95% BMI 26.96 kg/m? Last 4 Encounter Wt Readings: Date: Wt: 07/22/2022 72.6 kg (160 lb 1.6 oz) 12/23/2020 68.9 kg (152 lb) 10/10/2020 70.3 kg (155 lb) 09/04/2019 68.9 kg (152 lb) PHYSICAL EXAMINATION: General appearance: Well appearing, alert, in no acute distress, well-hydrated, well nourished. Skin: Skin color, texture, turgor normal, no suspicious rashes or lesions Head: Normocephalic, no masses, lesions, tenderness or abnormalities Eyes: Anicteric sclera. Pupils are equally round and reactive to light. Extraocular movements are intact. Neck: Supple, no adenopathy; thyroid symmetric, normal size, no bruits Lungs: Lungs clear to auscultation. No wheezing, rhonchi, rales Heart: RRR without murmur, gallop, or rubs. No ectopy Abdomen: Normal abdominal exam, Abdomen soft, non-tender. Bowel sounds normal. No masses, organomegaly Extremities: No deformities, edema, skin discoloration, clubbing or cyanosis. Good capillary refill. ASSESSMENT/PLAN: 1. SOB (shortness of breath) - ICD9: 786.05, ICD10: R06.02 (primary diagnosis) - shows RBB, with sinus yasir. Reviewed labs. Red flags for re-assessment reviewed with patient in detail. - ECG COMPLETE - do stress echo. 2. Screening for viral disease - ICD9: V73.99, ICD10: Z11.59 - HEP B SURF AB - RUBEOLA (MEASLES)IGG - MUMPS IGG AB - RUBELLA IGG AB 3. WILSON (obstructive sleep apnea) - ICD9: 327.23, ICD10: G47.33 - schedule sleep test - HOME SLEEP APNEA DARWIN (more content not included)... [facility] 08-13-2022 Instructions Curtis Keyes MD - 08/13/2022 8:42 AM EDT BONE MINERAL DENSITY PATIENT INSTRUCTIONS ======= Bone mineral density testing measures the amount of calcium in certain parts of your bones. This information determines how strong your bones are. The test is used to detect osteoporosis, a disease in which the bone's mineral content and density are low, increasing a person's risk of fractures. The lumbar spine (lower back) and the hip are the skeletal sites usually examined. For the test, remember that: 1. You cannot take this test if you are . 2. Eat a normal diet on the day of the test. 3. Take your medications as you normally would. 4. DO NOT take calcium supplements (such as Tums) for 24 hours before the test. 5. On the day of the test, leave valuables (jewelry or credit cards) at home. 6. The test should be performed prior to oral, rectal or IV contrast studies, or at least 7 days after any of these studies. For the test, you may be asked to wear a hospital gown. You will lie on your back, on a padded table, in a comfortable position. Generally, you can resume your usual activities immediately. documented in this encounter [facility] 08-13-2022 History of Present illness Narrative Patient presents with: Orders: BMD to be done at [facility] HPI: Patient presents today for office visit for follow up. Has never completed bone density test would like to have done at [facility]. Questioning sleep apnea. Sleeps well: No. Feels rested on awakening: No No daytime fatigue: Yes always fatigued and tired. Snoring: Yes Some witnessed apnea. Had been wearing mouth guard and stopped. Did stop saw dentist yesterday and has some shifting from shifting. Asking about baseline echo or stress test. Notes some shortness of breath when going up steps. Would like to have as baseline. No cough or chest pain. No wheezing. Or swelling. Travel to [place] soon. Will be gone for a month. Meeting with the health department travel nurse. Going to [facility]. Needs tdap, hep b and mmr titers. Check ears. Has blood flow screening from work to review. Normal. MEDICATIONS: Current Outpatient Medications Medication Sig MAGNESIUM ORAL Take by mouth. vit B12/intrinsic fact/folate (INTRINSI U16-PLUBEL ORAL) Take by mouth. krill oil 500 mg cap Take 1 capsule by mouth once daily. CYANOCOBALAMIN, VITAMIN B-12, (VITAMIN B-12 ORAL) Take 300 mg by mouth once daily. Combo with Folate 400 mg Multivitamin (DAILY MULTIVITAMIN) ORAL Tab Take one(1) tablet daily. CALTRATE-600 PLUS VITAMIN D3 600 MG-200 UNIT TAB Take one(1) tablet two(2) times daily. No current facility-administered medications for this visit. ALLERGIES: ALLERGIES No Known Allergies PAST MEDICAL HISTORY Diagnosis Date Cystocele Diverticulosis of colon (without mention of hemorrhage) Hemorrhage of rectum and anus Hx of fracture of arm right forearm Pure hypercholesterolemia hdl is 102 in 2017 Rectocele Unspecified closed fracture of ankle Ankle fracture Unspecified hemorrhoids without mention of complication Uterine prolapse PAST SURGICAL HISTORY Procedure Laterality Date APPENDECTOMY COLONOSCOPY FLX DX W/COLLJ SPEC WHEN PFRMD 01/09/05 COLONOSCOPY FLX DX W/COLLJ SPEC WHEN PFRMD 08-06-14 LIGJ DIVJ &/EXCJ VARICOSE VEIN CLUSTER 1 LEG Varicose Vein Surgery - No complications OTHER 2011 right forearm fracture; permanent plates PAST SURGICAL HISTORY OF ANKLE PAST SURGICAL HISTORY OF 01/2014 Uphold sacrospinous hysteropexy.Cystocele repair Rectocele repair FAMILY HISTORY Problem Relation Age of Onset Osteoporosis Mother Hypertension Mother Breast Cancer Mother other (Sarcoidosis) Mother Lipids Father High Cholesterol Diabetes Maternal Grandmother Coronary Artery Disease Maternal Grandmother Coronary Artery Disease Paternal Grandfather Social History Tobacco Use Smoking status: Never Smokeless tobacco: Never Vaping Use Vaping Use: Never used Substance Use Topics Alcohol use: Yes Comment: Seldom Drug use: No Reviewed current medications, allergies, past medical history, surgical history, family history and social history today. REVIEW OF SYSTEMS All other reviewed and negative other than HPI. HEALTH MAINTENANCE: Reviewed health maintenance issues today and recommended the following in detail. HIV SCREENING Never done DTAP,TDAP,TD(1 - Tdap) due on 10/22/2014 DEPRESSION ASSESSMENT Never done DIABETES SCREEN due on 05/03/2022 VITALS: BP 102/68 Pulse 66 Wt 73.5 kg (162 lb) LMP 2009 SpO2 95% BMI 26.96 kg/m Last 4 Encounter Wt Readings: Date: Wt: 07/22/2022 72.6 kg (160 lb 1.6 oz) 12/23/2020 68.9 kg (152 lb) 10/10/2020 70.3 kg (155 lb) 09/04/2019 68.9 kg (152 lb) PHYSICAL EXAMINATION: General appearance: Well appearing, alert, in no acute distress, well-hydrated, well nourished. Skin: Skin color, texture, turgor normal, no suspicious rashes or lesions Head: Normocephalic, no masses, lesions, tenderness or abnormalities Eyes: Anicteric sclera. Pupils are equally round and reactive to light. Extraocular movements are intact. Neck: Supple, no adenopathy; thyroid symmetric, normal size, no bruits Lungs: Lungs clear to auscultation. No wheezing, rhonchi, rales Heart: RRR without murmur, gallop, or rubs. No ectopy Abdomen: Normal abdominal exam, Abdomen soft, non-tender. Bowel sounds normal. No masses, organomegaly Extremities: No deformities, edema, skin discoloration, clubbing or cyanosis. Good capillary refill. ASSESSMENT/PLAN: 1. SOB (shortness of breath) - ICD9: 786.05, ICD10: R06.02 (primary diagnosis) - shows RBB, with sinus yasir. Reviewed labs. Red flags for re-assessment reviewed with patient in detail. - ECG COMPLETE - do stress echo. 2. Screening for viral disease - ICD9: V73.99, ICD10: Z11.59 - HEP B SURF AB - RUBEOLA (MEASLES)IGG - MUMPS IGG AB - RUBELLA IGG AB 3. WILSON (obstructive sleep apnea) - ICD9: 327.23, ICD10: G47.33 - schedule sleep test - HOME SLEEP APNEA TEST (HSAT) 4. Post-menopausal - ICD9: V49.81, ICD10: Z78.0 - DXA-AXIAL SKELETON Curtis Keyes MD documented in this encounter [facility] 07-22-2022 Note HNO ID: [id number] Author: Ernst Kern MD Service: ? Author Type: Physician Type: Progress Notes Filed: 07/22/2022 9:00 AM Note Text: Drug Coordinator offered: Patient declinesDora Koo is a 66 year old who presents for an annual gynecologic exam without complaints. Postmenopausal: yes HRT use: No. Last Pap: 06/27/2018 normal HPV: 06/23/2018 negative History of abnormal pap: No Last mammogram: 2022 normal Sexually active: Yes OB History T2 L2 SAB0 IAB0 Ectopic0 Multiple0 Live Births0 Comment: NVD X 2. NO COMPLICATIONS. [employer] History LMP: 2009, Postmenopausal Age at Menarche: Age at First : Age at Menopause: [employer] History Comments: Sexual Activity: Yes; Male Contraception: No contraception data on record PAST MEDICAL HISTORY Diagnosis Date Cystocele Diverticulosis of colon (without mention of hemorrhage) Hemorrhage of rectum and anus Hx of fracture of arm right forearm Pure hypercholesterolemia hdl is 102 in 2017 Rectocele Unspecified closed fracture of ankle Ankle fracture Unspecified hemorrhoids without mention of complication Uterine prolapse PAST SURGICAL HISTORY Procedure Laterality Date APPENDECTOMY COLONOSCOPY FLX DX W/COLLJ SPEC WHEN PFRMD 01/09/05 COLONOSCOPY FLX DX W/COLLJ SPEC WHEN PFRMD 08-06-14 LIGJ DIVJ AND/EXCJ VARICOSE VEIN CLUSTER 1 LEG Varicose Vein Surgery - No complications OTHER 2011 right forearm fracture; permanent plates PAST SURGICAL HISTORY OF ANKLE PAST SURGICAL HISTORY OF 01/2014 Uphold sacrospinous hysteropexy.Cystocele repair Rectocele repair FAMILY HISTORY Problem Relation Age of Onset Osteoporosis Mother Hypertension Mother Breast Cancer Mother other (Sarcoidosis) Mother Lipids Father High Cholesterol Diabetes Maternal Grandmother Coronary Artery Disease Maternal Grandmother Coronary Artery Disease Paternal Grandfather SOCIAL HISTORY Social History Tobacco Use Smoking status: Never Smokeless tobacco: Never Vaping Use Vaping Use: Never used Substance Use Topics Alcohol use: Yes Comment: Seldom Drug use: No REVIEW OF SYSTEMS Abdomen: No abdominal pain, nausea, vomiting, diarrhea, or constipation. No bloating, early satiety, indigestion, or increased flatulence. Bladder: No dysuria, gross hematuria, urinary frequency, urinary urgency, mild urgency, doesn't wear pads Breast: No breast lumps, nipple d/c, overlying skin changes, redness or skin retraction Allergies and current medication updated:Yes EXAM: BP 98/70 Ht 5' 5 (1.65m) Wt 160 lb 1.6 oz (72.6kg) LMP 2009 BMI 26.64 kg/(m2). GENERAL: pleasant, female in no apparent distress HEENT: Normocephalic, atraumatic, mucus membranes moist, and no lesions NECK: Supple, full range of motion, no adenopathy, and thyroid normal DERMATOLOGY: Normal, without lesions, non-icteric, and non-hirsute BREAST: soft, non-tender, symmetric, no dominant mass, normal nipple-areolar complex, no lymphadenopathy, and no nipple discharge CHEST: Normal inspiratory effort ABDOMEN: soft, non-tender, and no masses PELVIC: external genitalia normal, normal Bartholin's glands, urethra, [place]'s glands, no vulvar lesions, no cervical lesions, good vaginal support, physiologic discharge present, normal appearing perineal body and perianal region BIMANUAL: uterus normal size, shape and consistency, no adnexal masses, and non-tender RECTOVAGINAL: deferred. NEURO: alert and oriented x3,exam grossly non-focal EXTREMITIES: normal ASSESSMENT/PLAN: 1) Health maintenance: Pap done with HPV. Mammogram ordered Colon cancer screening: up to date with screening 2) Follow up one year or sooner as needed Ernst Kern MD [facility] 04-15-2022 Miscellaneous Notes Labs faxed. Please fax thyroid lab orders to [facility], as requested by patient. Carmen Crowe APRN.DELISA documented in this encounter [facility] 04-13-2022 Miscellaneous Notes Order faxed Order sheet prepared and to RR to sign. Connie Arias RN documented in this encounter [facility] documented as of this encounter (statuses as of 04/13/2022) [facility]2015 History of Past illness Narrative* Problem Noted Date Resolved Date Screening for intestinal cancer 07/04/2014 07/23/2016 Hemorrhage of rectum and anus 12/22/2004 documented as of this encounter (statuses as of 04/15/2022) [facility] History of Past illness Narrative* Problem Noted Date Resolved Date Screening for intestinal cancer 07/04/2014 07/23/2016 Hemorrhage of rectum and anus 12/22/2004 documented as of this encounter (statuses as of 08/13/2022) [facility] History of Past illness Narrative* Problem Noted Date Resolved Date Screening for intestinal cancer 07/04/2014 07/23/2016 Hemorrhage of rectum and anus 12/22/2004 documented as of this encounter (statuses as of 08/22/2022) [facility] History of Past illness Narrative* Problem Noted Date Diagnosed Date Resolved Date Screening for intestinal cancer 07/04/2014 07/23/2016 Hemorrhage of rectum and anus 12/22/2004 07/23/2016 documented as of this encounter (statuses as of 09/17/2022) [facility] History of Past illness Narrative* Problem Noted Date Diagnosed Date Resolved Date Screening for intestinal cancer 07/04/2014 07/23/2016 Hemorrhage of rectum and anus 12/22/2004 07/23/2016 documented as of this encounter (statuses as of 10/15/2022) [facility] History of Past illness Narrative* Problem Noted Date Diagnosed Date Resolved Date Screening for intestinal cancer 07/04/2014 07/23/2016 Hemorrhage of rectum and anus 12/22/2004 07/23/2016 documented as of this encounter (statuses as of 11/12/2022) [facility] History of Past illness Narrative* Problem Noted Date Diagnosed Date Resolved Date Screening for intestinal cancer 07/04/2014 07/23/2016 Hemorrhage of rectum and anus 12/22/2004 07/23/2016 documented as of this encounter (statuses as of 01/28/2023) [facility] History of Past illness Narrative* Problem Noted Date Diagnosed Date Resolved Date Screening for intestinal cancer 07/04/2014 07/23/2016 Hemorrhage of rectum and anus 12/22/2004 07/23/2016 documented as of this encounter (statuses as of 04/02/2023) [facility] Diagnosis Fatigue, unspecified type- Primary documented in this encounter [facility]* Diagnosis SOB (shortness of breath)- Primary Shortness of breath Screening for viral disease Special screening examination for unspecified viral disease Need for vaccination Need for prophylactic vaccination and inoculation against unspecified single disease WILSON (obstructive sleep apnea) Obstructive sleep apnea (adult) (pediatric) Post-menopausal Asymptomatic postmenopausal status (age-related) (natural) [facility] Diagnosis WILSON (obstructive sleep apnea)- Primary Obstructive sleep apnea (adult) (pediatric) [facility]* Diagnosis Osteoporosis, unspecified osteoporosis type, unspecified pathological fracture presence [facility] Diagnosis WILSON (obstructive sleep apnea)- Primary Obstructive sleep apnea (adult) (pediatric) [facility] Diagnosis Osteoporosis, unspecified osteoporosis type, unspecified pathological fracture presence documented in this encounter [facility] for referral (narrative)* Outpatient Procedure (Routine) - Pending Review Specialty Diagnoses / Procedures Referred By Contac t Referred [facility] Diagnoses SOB (shortness of breath) Procedures STRESS ECHO TREADMILL ECHO TTHRC R-T 2D W/WO M-MODE COMPLETE REST&ST StephyCurtis MD [address] [place] [address] [facility] [place] [address] [place] [address] Referral ID Status Reason Start Date Expiration Date Visits Requested Visits Authorized [id number] Pending Review Auto-Generat ed Referral 08/13/2022 08/13/2023 1 1 * Outpatient Procedure (Routine) - Closed Specialty Diagnoses / Procedures Referred By Abhilash tolbert Referred To Contact [facility] Diagnoses SOB (shortness of breath) Procedures ECG COMPLETE ECG ROUTINE ECG W/LEAST 12 LDS W/I&R Curtis Keyes MD [address] [place] [address] [facility] [address] [address] Referral ID Status Reason Start Date Expiration Date V isits Requested Visits Authorized [id number] Closed Auto-Generate d Referral 08/13/2022 08/13/2023 1 1 * Diagnostic Procedure Only (Routine) - Pending Review Specialty Diagnoses / Procedures Referred By Abhilash tolbert Referred To Contact [facility] Diagnoses WILSON (obstructive sleep apnea) Procedures HOME SLEEP APNEA TEST (HSAT) SLEEP STD AIRFLOW HRT RATE&O2 SAT EFFORT Curtis Pena MD [address] [place] [address] [address] Referral ID Status Reason Start Date Expiration Date Visits Requested Visits Authorized [id number] Pending Review Auto-Generat ed Referral 08/13/2022 08/13/2023 1 1 [facility] for referral (narrative)* Diagnostic Procedure Only (Routine) - Pending Review Specialty Diagnoses / Procedures Referred By Abhilash tolbert Referred To Contact [facility] Diagnoses WILSON (obstructive sleep apnea) Procedures HOME SLEEP APNEA TEST (HSAT) SLEEP STD AIRFLOW HRT RATE&O2 SAT EFFORT Curtis Pena MD [address] [place] [address] [address] Referral ID Status Reason Start Date Expiration Date Visits Requested Visits Authorized [id number] Pending Review Auto-Generat ed Referral 3 01/27/2024 1 1 [facility] Summary Purpose Family History No Family History Records Found Advance Directives No Advanced Directives Records Found Additional Source Comments Source Comments (unrecognize d section and content) In the event this informatio n is protected by the Federal Confidentiality of Alcohol and Drug Abuse Patient Records regulations: The Federal rules restrict any use of the information to criminally investigate or prosecute any alcohol or drug abuse patient.[facility] the event this information is protected by the Federal Confidentiality of Alcohol and Drug Abuse Patient Records regulations: The Federal rules restrict any use of the information to criminally investigate or prosecute any alcohol or drug abuse patient.[facility] the event this information is protected by the Federal Confidentiality of Alcohol and Drug Abuse Patient Records regulations: The Federal rules restrict any use of the information to criminally investigate or prosecute any alcohol or drug abuse patient.[facility] the event this information is protected by the Federal Confidentiality of Alcohol and Drug Abuse Patient Records regulations: The Federal rules restrict any use of the information to criminally investigate or prosecute any alcohol or drug abuse patient.[facility] the event this information is protected by the Federal Confidentiality of Alcohol and Drug Abuse Patient Records regulations: The Federal rules restrict any use of the information to criminally investigate or prosecute any alcohol or drug abuse patient.[facility] the event this information is protected by the Federal Confidentiality of Alcohol and Drug Abuse Patient Records regulations: The Federal rules restrict any use of the information to criminally investigate or prosecute any alcohol or drug abuse patient.[facility] the event this information is protected by the Federal Confidentiality of Alcohol and Drug Abuse Patient Records regulations: The Federal rules restrict any use of the information to criminally investigate or prosecute any alcohol or drug abuse patient.[facility] the event this information is protected by the Federal Confidentiality of Alcohol and Drug Abuse Patient Records regulations: The Federal rules restrict any use of the information to criminally investigate or prosecute any alcohol or drug abuse patient.[facility] the event this information is protected by the Federal Confidentiality of Alcohol and Drug Abuse Patient Records regulations: The Federal rules restrict any use of the information to criminally investigate or prosecute any alcohol or drug abuse patient.[facility] Care Teams (unrecognized sec tion and content) Lead Project Engineer Relationship Specialty Start Date End Date Curtis Keyes MD [address] [place], [place] [id number] PCP - General Family Medicine 07/23/16 Lead Project Engineer Relationship Specialty Start Date End Date Curtis Keyes MD [address] [place], [place] [id number] PCP - General Family Medicine 07/23/16 Lead Project Engineer Relationship Specialty Start Date End Date Curtis Keyes MD [address] [place], [place] [id number] PCP - General Family Medicine 07/23/16 Lead Project Engineer Relationship Specialty Start Date End Date Curtis Keyes MD [address] [place], [place] [id number] PCP - General Family Medicine 07/23/16 Lead Project Engineer Relationship Specialty Start Date End Date Curtis Keyes MD [address] [place], [place] [id number] PCP - General Family Medicine 07/23/16 Lead Project Engineer Relationship Specialty Start Date End Date Curtis Keyes MD [address] [place], [place] [id number] PCP - General [facility] Medicine 07/23/16 Lead Project Engineer Relationship Specialty Start Date End Date Curtis Keyes MD [address] [place], [place] [id number] PCP - General [facility] Medicine 07/23/16 Lead Project Engineer Relationship Specialty Start Date End Date Curtis Keyes MD [address] [place], [place] [id number] PCP - General Family Medicine 07/23/16 Reason for Visit (unrecogniz ed section and content) Reason Comments Results Reason Comments Rx for Sleep Apnea Machine Reason Comments Form for sleep apnea appliance Reason Onset Date Comments Refill Request 04/01/2023 INFORMATION SOURCE (unrecogn ized section and content) FOR RECORDS PERTAINING TO PATIENTS WHO ARE OR HAVE BEEN ENROLLED IN A CHEMICAL DEPENDENCY/SUBSTANCEABUSE PROGRAM, SOME INFORMATION MAY BE OMITTED. This clinical summary was aggregated from multiple sources. Caution should be exercised in using it in the provision of clinical care. This summary normalizes information from multiple sources, and as a consequence, information in this document may materially change the coding, format and clinical context of patient data. In addition, data may be omitted in some cases. CLINICAL DECISIONS SHOULD BE BASED ON THE PRIMARY CLINICAL RECORDS. [employer] provides no warranty or guarantee of the accuracy or completeness of information in this document.
== END | disposition home or self-care (01) ==
LOC: OPBI 07:10
PROVIDERS: PCP Family Medicine; Referring Provider Obstetrics & Gynecology; Visit Provider Obstetrics & Gynecology
DX: Z12.31 Encounter for screening mammogram for malignant neoplasm of breast (principal)
CPT/HCPCS: 77063; 77067

== ENCOUNTER → 2023-07-23 | Outpatient (CLI) | payer MEDICARE, BC, SELFPAY ==
[2023-07-23 08:44] LABS: Absolute Lymphocyte Count 1.71 X10^3/uL (0.83-4.51); Absolute Neutrophil Count 2.4 X10^3/uL (2.0-7.7); Basophil# 0.04 X10^3/uL; Basophil% 0.9 % (0-1); Eosinophil# 0.08 X10^3/uL; Eosinophils% 1.7 % (0-5); Hematocrit 42.3 % (37-47); Hemoglobin 13.4 g/dL (12.0-15.0); Lymphocyte # 1.71 X10^3/ul (0.83-4.51); Lymphocyte % 37.3 % (19-41); Mean Corp Hgb Conc 31.7 g/dL (32-36); Mean Corpuscular Volume 94.6 fL (81-99); Monocyte# 0.39 X10^3/uL; Monocyte% 8.5 % (0-10); NRBC Flagged by Analyzer 0 % (0-5); Neutrophil # 2.35 X10^3/uL (2.7-7.7); Neutrophil % 51.4 % (47-70); Platelet Count 202 K/mm3 (150-450); RBC Distribution Width CV 12.4 % (11.6-14.6); RBC Distribution Width SD 42.8 fl (35.1-43.9); Red Blood Count 4.47 M/mm3 (4.2-5.4); White Blood Count 4.6 K/mm3 (4.4-11.0)
[2023-07-23 09:32] LABS: ALB/GLOB Ratio 1.2 RATIO (0.9-2.4); AST(SGOT) 19 U/L (15-37); Alanine Aminotransfer ALT/SGPT 11 U/L (13-56); Albumin, Serum 3.6 g/dL (3.2-5.0); Alkaline Phosphatase 50 U/L (45-117); Anion Gap 6 (5-15); BUN 12 mg/dL (7-18); BUN/Creat Ratio 17.1 RATIO (10-20); Calcium,Total 8.8 mg/dL (8.5-10.1); Chloride 107 mmol/L (98-107); Cholesterol 247 mg/dL (200); EST Glomerular Filtration Rate 89 mL/min (>60); Est Glom Filt Rate - Afr Amer 107 mL/min (>60); Glucose 87 mg/dL (74-106); High Density Lipoprotein 84 mg/dL; Magnesium 2.5 mg/dL (1.6-2.6); Potassium 3.9 mmol/L (3.5-5.1); Protein, Total 6.6 g/dL (6.4-8.2); Sodium Level 141 mmol/L (136-145); Thyroid Stim Hormone (TSH) 1.45 uIU/mL (0.358-3.74); Triglycerides 84 mg/dL; Very Low Density Lipoprotein 17 mg/dL (5-40)
[2023-07-23 13:47] LABS: Vitamin B12 664 pg/mL (211-911); Vitamin D,25 Hydroxy 54.9 ng/mL
== END | disposition home or self-care (01) ==
PROVIDERS: PCP Family Medicine; Visit Provider Family Medicine
DX: R53.83 Other fatigue (principal); M81.0 Age-related osteoporosis without current pathological fracture; E78.00 Pure hypercholesterolemia, unspecified; Z51.81 Encounter for therapeutic drug level monitoring
CPT/HCPCS: 36415; 80053; 80061; 82306; 82607; 83735; 84443; 85025

== ENCOUNTER → 2023-08-28 | Outpatient (CLI) | payer MEDICARE, BC, SELFPAY | END | disposition home or self-care (01) | LOC: SL 08-30 10:00 | PROVIDERS: PCP Family Medicine; Visit Provider Family Medicine | DX: G47.33 Obstructive sleep apnea (adult) (pediatric) (principal) | CPT/HCPCS: 95806 ==

== ENCOUNTER → 2024-01-04 | Outpatient (CLI) | payer MEDICARE, BC, SELFPAY ==
[2024-01-04 11:53] LABS: CRP < 2.90 mg/L (0.0-3.0)
[2024-01-05 09:09] LABS: SJOGREN'S Anti-SS-A test < 0.2 AI (0.0-0.9); SJOGREN'S Anti-SS-B test < 0.2 AI (0.0-0.9)
== END | disposition home or self-care (01) ==
LOC: LAB 09:56
PROVIDERS: PCP Family Medicine; Referring Provider Student in an Organized Health Care Education/Training Program; Visit Provider Student in an Organized Health Care Education/Training Program
DX: R68.2 Dry mouth, unspecified (principal); H04.123 Dry eye syndrome of bilateral lacrimal glands
CPT/HCPCS: 36415; 86140; 86235

== ENCOUNTER → 2024-03-06 | Outpatient (CLI) | payer MEDICARE, BC, SELFPAY ==
[2024-03-06 12:56] LABS: Anion Gap 4 (5-15); BUN 8 mg/dL (7-18); BUN/Creat Ratio 10.8 RATIO (10-20); Calcium,Total 9.3 mg/dL (8.5-10.1); Chloride 105 mmol/L (98-107); Creatinine, Serum 0.74 mg/dL (0.55-1.02); EST Glomerular Filtration Rate 83 mL/min (>60); Est Glom Filt Rate - Afr Amer 101 mL/min (>60); Glucose 97 mg/dL (74-106); Potassium 4.2 mmol/L (3.5-5.1); Sodium Level 137 mmol/L (136-145)
== END | disposition home or self-care (01) ==
LOC: LAB 11:49
PROVIDERS: PCP Family Medicine; Referring Provider Family Medicine; Visit Provider Family Medicine
DX: M81.0 Age-related osteoporosis without current pathological fracture (principal)
CPT/HCPCS: 36415; 80048; 82306

== ENCOUNTER → 2024-05-15 | Outpatient (CLI) | payer MEDICARE, BC, SELFPAY ==
--- NOTE | 2024-05-15 08:45 | BI_ITS ---
EXAM: SCRN MAMM (CAD)W/ANNE BILAT DATE: 05/15/2024 CLINICAL HISTORY: F, Age 68 y/o , SCREENING. Mother with breast cancer. TECHNIQUE: Bilateral screening digital breast tomosynthesis with 2D and 3D images. Computer aided detection. COMPARISON: Prior exam(s) dating back to May 11, 2023.. FINDINGS: Bilateral Breast Mammographic Findings: No significant masses, calcifications or other abnormalities are identified. TISSUE DENSITY: The breast tissue is heterogenously dense, which may obscure small masses. There are no other dominant masses, areas of architectural distortion, or suspicious calcifications. BI/SCRN MAMM (CAD)W/ANNE BILAT IMPRESSION: Right Breast: BI-RADS category 1, negative findings. Left Breast: BI-RADS category 1, negative findings. Normal interval followup mammograms are recommended in 12 months. A letter with findings and recommendations will be mailed to the patient. ASSESSMENT: BIRADS 1 NEGATIVE RECOMMENDATION: 1: ROUTINE ANNUAL FOLLOW-UP Bilateral in 1 Year Reading Location: [place] [address]
== END | disposition home or self-care (01) ==
LOC: OPBI 08:43
PROVIDERS: PCP Family Medicine; Referring Provider Nurse Practitioner Women's Health; Visit Provider Nurse Practitioner Women's Health
DX: Z12.31 Encounter for screening mammogram for malignant neoplasm of breast (principal)
CPT/HCPCS: 77063; 77067

== ENCOUNTER → 2024-09-11 | Outpatient (CLI) | payer MEDICARE, BC, SELFPAY ==
[2024-09-11 12:06] LABS: Vitamin D,25 Hydroxy 49.1 ng/mL (30-100)
--- OUTSIDE RECORDS SUMMARY | 2024-09-11 21:03 | XMS RPT_ITS | CCD ---
Author Organization [facility] Care Team Providers Care Conveyor Feeder Offbearer Name Role Phone Munir Keyes MD Primary Care Provider Dr. Munir Keyes Primary Care Provider Dr. Munir Keyes Referring Provider Dr. Jase Valentine Attending Provider Munir Keyes MD Primary Care Provider Haagen ILLUMINATOR.RADIUS CORNER MACHINE OPERATORCarmen Unavailable Suppan ILLUMINATOR.RADIUS CORNER MACHINE OPERATOR, Elizabeth A Unavailable Suppan ILLUMINATOR.RADIUS CORNER MACHINE OPERATOR, Elizabeth A Unavailable [phone] MUNIR KEYES Attending Unavailable MUNIR KEYES Primary Care Unavailable MUNIR KEYES Primary Care Unavailable BEAU EID Attending Unavailable MUNIR KEYES Primary Care Unavailable BEAU EID Referring Unavailable MUNIR KEYES Primary Care Unavailable ERNST KERN Attending Unavailable SELF Referring Unavailable MUNIR KEYES Primary Care Unavailable Dr. Munir Keyes MD Primary Care Provider Dr. Munir Keyes MD Attending Provider Dr. Munir Keyes MD Referring Provider Justin METALWORKING SPECIALIST-CCarey Attending Provider Justin METALWORKING SPECIALIST-CCarey Referring Provider Munir Keyes Primary Care Unavailable Carey Anderson Attending Unavailable Carey Anderson Referring Unavailable Munir Keyes Primary Care Unavailable Munir Keyes Attending Unavailable Munir Keyes Primary Care Unavailable Elizabeth Hills Attending Unavailable Griffin Cook Referring Unavailable Munir Keyes Primary Care Unavailable Griffin Cook Attending Unavailable Munir Keyes Primary Care Unavailable Munir Keyes Attending Unavailable Munir Keyes Referring Unavailable Medications Current Medications Medication Drug Class(es) Dates Sig (Normalized) Sig (Original) alendronic acid 70 mg oral tablet (17 sources) Bisphosphonate Start: 09-05-2024 End: 09-05-2025 take 1 tablet by mouth every week in the morning alendronate (FOSAMAX) 70 mg tablet Indications: Osteoporosis, unspecified osteoporosis type, unspecified pathological fracture presence Take 1 tablet by mouth one time a week. In AM with cup of water on empty stomach. Nothing else by mouth and stay upright for 30 min. 12 tablet 3 09/05/2024 09/05/2025 Active Start: 11-09-2022 End: 03-31-2024 take 1 tablet by mouth every week alendronate (FOSAMAX) 70 mg tablet Indications: Osteoporosis, unspecified osteoporosis type, unspecified pathological fracture presence Take 1 tablet by mouth one time a week. Take with a full glass of water, on an empty stomach; do NOT lie down for 30minutes. 12 tablet 3 04/01/2023 03/06/2024 Discontinued Comment on above: Take 1 tablet by [facility] one time a week. Take with a full glass of water, on an empty stomach; do NOT lie down for 30minutes. amoxicillin 875 mg / clavulanate 125 mg oral tablet (1 source) Penicillin-class Antibacterial Start: 4 End: 4 take 1 tablet by mouth twice daily amoxicillin-clavul anate potassium (AUGMENTIN) 875-125 mg per tablet Take 1 tablet by mouth two times a day for 7 days. 14 tablet 0 10/14/2023 10/21/2023 Active aspirin 81 mg chewable tablet (7 sources) Platelet Aggregation Inhibitor, Nonsteroidal Anti-inflammatory Drug Start: 5 take 1 tablet by mouth once daily Aspirin 81 MG tablet,chewable Active 81 mg PO DAILY@0800 August 06, 2014 12:00am Comment on above: Take 81 mg by mouth once daily. Black Cohosh (5 sources) Start: 5 take 1 tablet by mouth once daily Black Cohosh 40 MG tablet Active 80 mg PO DAILY August 06, 2014 12:00am Start: 08-06-2014 take 80 mg by mouth once daily Black Cohosh Active 80 MG PO DAILY August 06, 2014 12:00am calcium carbonate 1500 mg / cholecalciferol 800 unt oral tablet (5 sources) Vitamin D Start: 08-06-2014 Calcium Carbon ate-Vitamin D3 1 EACH tablet Active 1 NMA PO TWICE A DAY August 06, 2014 12:00am Start: 08-06-2014 Calcium Carbon ate-Vitamin D3 Active 1 EACH PO TWICE A DAY August 06, 2014 12:00am CALTRATE-600 PLUS VITAMIN D3 600 MG-200 UNIT TAB (20 sources) Start: 07-22-2005 CALTRATE-600 P JIMMIE VITAMIN D3 600 MG-200 UNIT TAB Take one(1) tablet two(2) times daily. 0 07/22/2005 Active Comment on above: Take one(1) tablet t wo(2) times daily. cholecalciferol 0.05 mg oral capsule (12 sources) Vitamin D Cholecalciferol, Vitamin D3, (VITAMIN D-3) 50 mcg (2,000 unit) cap Take 2,000 capsules by mouth once daily. Active take 1 tablet by mouth once cesar y cholecalciferol (VITAMIN D-3) 5,000 unit tab Take 5,000 Units by mouth once daily. 0 Active Comment on above: Take 5,000 Units by mouth once daily. CYANOCOBALAMIN, VITAMIN B-12, (VITAMIN B-12 ORAL) (20 sources) CYANOCOBALAMIN, VITAMIN B-12, (VITAMIN B-12 ORAL) Take 300 mg by mouth once daily. Combo with Folate 400 mg Active CYANOCOBALAMIN, VITAMIN B-12, (VITAMIN B-12 ORAL) Take 300 mg by mouth once daily. Combo with Folate 400 mg 0 Active Comment on above: Take 300 mg by mouth once daily. Combo with Folate 400 mg krill oil 500 mg oral capsule (20 sources) take 1 capsule by mouth once daily krill oil 500 mg cap Take 1 capsule by mouth once daily. Active Comment on above: Take 1 capsule by [facility] once daily. Magnesium (20 sources) MAGNESIUM ORAL T demetris by mouth. Active MAGNESIUM ORAL T demetris by mouth. 0 Active Comment on above: Take by mouth. meloxicam 15 mg oral tablet (10 sources) Nonsteroidal Anti-inflammatory Drug Start: 11-24-19 take 1 tablet by mouth once daily meloxicam (MOBIC) 15 mg tablet Take 1 tablet by mouth once daily. 30 tablet 2 11/24/2023 Active Miscellaneous Medical Supply (20 sources) Start: 09-17-19 Miscellaneous Medical Supply Indications: WILSON (obstructive sleep apnea) 1 Each as directed. Oral/Dental Appliance for Sleep Apnea 1 Each 09/16/2022 Active Start: 09-16-2022 Miscellaneous Medical Supply Indications: WILSON (obstructive sleep apnea) 1 Each as directed. Oral/Dental Appliance for Sleep Apnea 1 Each 0 09/16/2022 Active Comment on above: 1 Each as directed. Oral/Dental Appliance for Sleep Apnea perflutren lipid microspheres 1.3 mL in NaCl (PF) 0.9% 10 mL injection (DEFINITY) (13 sources) Start: 08-13-2022 End: 11-12-2023 perflutren lipid microspheres 1.3 mL in NaCl (PF) 0.9% 10 mL injection (DEFINITY) 72 hr scopolamine 0.0139 mg/hr transdermal system (9 sources) Anticholinergic Start: 04-24-2024 End: 06-08-2024 scopolamine (TRANSDERM-SCOP) patch 1.5 mg/72 hr (delivers 1 mg over 3 days) Indications: Motion sickness, subsequent encounter Apply 1 Patch as directed as directed. BEHIND THE EAR AT LEAST 4 HOURS PRIOR TO EXPOSURE AND EVERY 3 DAYS NEEDED. 15 Patch 04/24/2024 06/08/2024 Active Start: 10-28-2022 End: 08-20-2023 scopolamine (TRANSDERM-SCOP) patch 1.5 mg/72 hr (delivers 1 mg over 3 days) Apply 1 Patch as directed every 72 hours. Apply patch to skin behind ear 4hrs prior to travel. 10 Patch 0 10/28/2022 08/20/2023 Discontinued Comment on above: Apply 1 Patch as dir ected every 72 hours. Apply patch to skin behind ear 4hrs prior to travel. 125 ml sodium chloride 9 mg/ml prefilled syringe (13 sources) Start: 08-13-2022 End: 11-12-2023 sodium chloride 0.9 % (flush) 10 mL (BD POSIFLUSH) vit B12/intrinsic fact/folate (INTRINSI N18-[id number] ORAL) (20 sources) vit B12/intrinsi c fact/folate (INTRINSI W02-[id number] ORAL) Take by mouth. Active vit B12/intrinsi c fact/folate (INTRINSI I11-TCXWNV ORAL) Take by mouth. 0 Active Comment on above: Take by mouth. VITAMIN K2 ORAL (13 sources) VITAMIN K2 ORAL Take by mouth. Active Completed/Discontinued Medications Medication Drug Class(es) Dates Sig (Normalized) Sig (Original) cinnamon bark 500 mg oral capsule (2 sources) Start: 03-18-2011 Cinnamon Bark (CINNAMON) 500 mg ORAL Cap Take 1,000 mg by mouth. 0 03/18/2011 Active Comment on above: Take 1,000 mg by efrem th. 1 ml denosumab 60 mg/ml prefilled syringe (9 sources) RANK Ligand Inhibitor Start: 03-03-2024 End: 02-26-2025 denosumab 60 mg injection (PROLIA) Start: 03-03-2024 End: 02-26-2025 60 mg, SUBCUTANEOUS, EVERY 6 MONTHS, 2 doses, First dose on Wed03/03/24 at 0900, Last dose on Wed08/30/24 at 0900, Allow To Come To Room Temperature Before Administration. REFRIGERATE JUANIS PRIMROSE/LINOLEIC/GAMOLE NI (PRIMROSE OIL ORAL) (2 sources) JUANIS PRIMROSE/PATRICIO OLEIC/GAMOLENI (PRIMROSE OIL ORAL) Take by mouth twice daily. 0 Active Comment on above: Take by mouth twice daily. Multivitamin (DAILY MULTIVITAMIN) ORAL Tab (15 sources) Star t: 07-31 07 End: 07-18 24 take 1 tablet by mouth once daily Multivitamin (DAILY MULTIVITAMIN) ORAL Tab Take one(1) tablet daily. 0 2006 11/04/2023 Discontinued (Other) Start: 2006 take 1 tablet by efrem th once daily Multivitamin (DAILY MULTIVITAMIN) ORAL Tab Take one(1) tablet daily. 0 2006 Active Comment on above: Take one(1) tablet d aily. ondansetron 4 mg disintegrating oral tablet (6 sources) Serotonin-3 Receptor Antagonist Start: 023 End: 024 take 1 tablet by mouth every six hours as needed ondansetron orally disintegrating (ZOFRAN ODT) 4 mg disintegrating tablet Take 1 tablet by mouth every 6 hours as needed for nausea/vomiting. 20 tablet 0 10/28/2022 08/20/2023 Discontinued Comment on above: Take 1 tablet by efrem th every 6 hours as needed for nausea/vomiting. polypodium leucotomos 240 mg oral capsule (2 sources) take 1 capsule by mouth once daily Polypodium Leucotomos Extract (HELIOCARE) 240 mg cap Take by mouth once daily. 0 Active Comment on above: Take by mouth once d aily. promethazine hydrochloride 25 mg oral tablet (6 sources) Phenothiazine Start: 023 End: 024 take 1 tablet by mouth every six hours as needed promethazine (PHENERGAN) 25 mg tablet Take 1 tablet by mouth every 6 hours as needed. 20 tablet 0 10/28/2022 08/20/2023 Discontinued Comment on above: Take 1 tablet by efrem th every 6 hours as needed. vitamin b6 100 mg oral tablet (2 sources) take 1 tablet by mouth once daily pyridoxine 100 mg tablet Take 100 mg by mouth once daily. 0 Active Comment on above: Take 100 mg by mouth once daily. Problems Active Problems Problem Classification Problem Date Documented Date Episodic/Chronic Disorders of lipid metabolism (4 sources) Raised low density lipoprotein cholesterol; Translations: [Pure hypercholesterolemia, unspecified] Onset: 08-23-2024 07-02-2023 Chronic Immunizations and screening for infectious disease (2 sources) Viral screening status; Translations: [Encounter for screening for other viral diseases] Episodic Malaise and fatigue (2 sources) Fatigue; Translations: [Other fatigue] Episodic Menopausal disorders (20 sources) Atrophy of vagina; Translations: [Postmenopausal atrophic vaginitis] Onset: 12-21-2014 12-21-2014 Chronic Osteoporosis (20 sources) Osteoporosis; Translations: [Age-related osteoporosis without current pathological fracture] Onset: 11-09-2022 11-12-2022 Chronic Other eye disorders (1 source) Dry eyes; Translations: [Dry eye syndrome of bilateral lacrimal glands] 12-30-2023 Episodic Other injuries and conditions due to external causes (2 sources) Motion sickness; Translations: [Motion sickness, subsequent encounter] 04-24-2024 Episodic Other lower respiratory disease (1 source) Dyspnea; Translations: [Shortness of breath] Episodic Other non-traumatic joint disorders (1 source) Pain in right hip joint; Translations: [Pain in right hip] 11-16-2023 Episodic Other non-traumatic joint disorders (1 source) Hip pain; Translations: [Pain in right hip] 11-24-2023 Episodic Other screening for suspected conditions (not mental disorders or infectious disease) (2 sources) Encounter for screening for lipoid disorders; Translations: [Encounter for screening mammogram for malignant neoplasm of breast] Onset: 05-22-2024 Episodic Prolapse of female genital organs (20 sources) Incomplete uterovaginal prolapse; Translations: [Incomplete uterovaginal prolapse] Onset: 12-19-2013 12-19-2013 Chronic Residual codes; unclassified (4 sources) Obstructive sleep apnea syndrome; Translations: [Obstructive sleep apnea (adult) (pediatric)] Chronic Residual codes; unclassified (1 source) Obstructive sleep apnea (adult) (pediatric); Translations: [Obstructive sleep apnea (adult) (pediatric)] Onset: 09-09-2023 Chronic Residual codes; unclassified (1 source) Postmenopausal state; Translations: [Asymptomatic menopausal state] Episodic Residual codes; unclassified (5 sources) Family history of cancer of colon; Translations: [Family history of malignant neoplasm of digestive organs] 04-12-2020 Episodic Spondylosis; intervertebral disc disorders; other back problems (1 source) Sacroiliac disorder; Translations: [Sacrococcygeal disorders, not elsewhere classified] 11-24-2023 Episodic Past or Other Problems Problem Classification Problem Date Documented Da te Episodic/Chronic Abdominal pain (20 sources) Female genital organ symptoms; Translations: [Pelvic and perineal pain] Onset: 12-21-2014 12-21-2014 Episodic Diseases of mouth; excluding dental (2 sources) Xerostomia; Translations: [Dry mouth, unspecified] Onset: 01-24-2024 12-30-2023 Episodic Gastrointestinal hemorrhage (18 sources) Hemorrhage of rectum and anus; Translations: [Hemorrhage of anus and rectum] Onset: 12-22-2004 Resolved: 07-23-2016 07-23-2016 Episodic Nonmalignant breast conditions (20 sources) Breast lump; Translations: [Unspecified lump in unspecified breast] Onset: 11-09-2007 11-09-2007 Episodic Other aftercare (20 sources) Patient encounter status; Translations: [Encounter for therapeutic drug level monitoring] Onset: 07-04-2014 Resolved: 07-23-2016 07-02-2023 Episodic Other non-traumatic joint disorders (1 source) Pain in right hip; Translations: [Pain in right hip] Onset: 11-24-2023 Episodic Results Test Name Value Interpretation Reference Range Facility Breast imaging reportOrdered By: Leander Crandall on 05-15-2024 Study report [facility] Services [address] [place] [address] SCRN MAMM (CAD)W/ANNE BILAT MR#: [id number] Acct: [id number] Name: HANANE RIVERA Rep #: [id number] : 1955 F 68 From: Jake Crandall MD PCP: Dr. Munir Keyes MD Status: [facility] Study:SCRN MAMM (CAD)W/ANNE BILAT Date of Exa m: 05/15/24 Exam# [id number] Ordering Dr: Ashlyn Anderson METALWORKING SPECIALIST-Ilir EXAM: SCRN MAMM (CAD)W/ANNE BILAT DATE: 05/15/2024 CLINICAL HISTORY: F, Age 68 y/o , SCREENING. Mother with breast cancer. TECHNIQUE: Bilateral screening digital breast tomosynthesis with 2D and 3D images. Computeraided detection. COMPARISON: Prior exam(s) dating back to May 11, 2023.. FINDINGS: Bilateral Breast Mammographic Findings: No significant masses, calcifications or other abnormalities are identified. TISSUE DENSITY: The breast tissue is heterogenously dense, which may obscure small masses. There are no other dominant masses, areas of architectural distortion, or suspicious calcifications. BI/SCRN MAMM (CAD)W/ANNE BILAT IMPRESSION: Right Breast: BI-RADS category 1, negative findings. Left Breast: BI-RADS category 1, negative findings. Normal interval followup mammograms are recommended in 12 months. A letter with findings and recommendations will be mailed to the patient. ASSESSMENT: BIRADS 1 NEGATIVE RECOMMENDATION: 1: ROUTINE ANNUAL FOLLOW-UP Bilateral in 1 Year Reading Location: [place] [address] CC: METALWORKING SPECIALISTOneil Anderson; Dr. Munir Keyes MD ~ Med Admin: Signed [facility] SCRN MAMM (CAD)W/ANNE BILATo n 05-15-2024 SCRN MAMM (CAD)W/ANNE BILAT [facility] Imaging Services [address] [place] [place], [place] [address] SCRN MAMM (CAD)W/ANNE BILAT MR#: [id number] Acct: [id number] Name: HANANE RIVERA Rep #: [id number] : 1955 F 68 From: Leander spangler MD PCP: Dr. Munir Keyes MD Status: [facility] Study: SCRN MAMM (CAD)W/ANNE BILAT Date of Exam: 04/29 09/22 Exam# [id number] Ordering Dr: Carey Anderson EXAM: SCRN MAMM (CAD)W/ANNE BILAT DATE: 05/15/2024 CLINICAL HISTORY: F, Age 68 y/o , SCREENING. Mother with breast cancer. TECHNIQUE: Bilateral screening digital breast tomosynthesis with 2D and 3D images. Computer aided detection. COMPARISON: Prior exam(s) dating back to May 11, 2023.. FINDINGS: Bilateral Breast Mammographic Findings: No significant masses, calcifications or other abnormalities are identified. TISSUE DENSITY: The breast tissue is heterogenously dense, which may obscure small masses. There are no other dominant masses, areas of architectural distortion, or suspicious calcifications. BI/SCRN MAMM (CAD)W/ANNE BILAT IMPRESSION: Right Breast: BI-RADS category 1, negative findings. Left Breast: BI-RADS category 1, negative findings. Normal interval followup mammograms are recommended in 12 months. A letter with findings and recommendations will be mailed to the patient. ASSESSMENT: BIRADS 1 NEGATIVE RECOMMENDATION: 1: ROUTINE ANNUAL FOLLOW-UP Bilateral in 1 Year Reading Location: [facility] CC: CHRIS Anderson; Dr. Munir Keyes MD Med Admin: Signed [facility]24[facility]20[facility] HA[facility]NE [facility]IVER[facility] ([id number]) 1955 F Date Time Provider Department 04/24/24 MUNIR KEYES During your visit today, we recorded the following information about you: Erika Altman LPN 04/24/2024 2:31 PM Signed Electronic PA rec'd and completed. This was approved. Pharmacy notified. Prior authorization approved Payer: TiVo Note from payer: Approved. This drug has been approved under the Member's Medicare Part D benefit. Approved quantity: 15 units per 30 day(s). You may fill up to a 90 day supply except for those on Specialty Tier 5, which can be filled up to a 30 day supply. Please call the pharmacy to process the prescription claim. Approval Details Authorized from April 10, 2024 to February 28, 2099 Electronic appeal: Not supported View History Notes Time User Attachment Attachment received from payer. 04/24/2024 2:28 PM Cchs, Rx Priorauth In Document Pharmacy Benefits Open Encounter HANANE RIVERA - 2024 [employer] PDP Retail Super ID ([employer]) Covered: Retail, Mail Order Unknown: Specialty, Long-Term Care BIN: [id number] : 1955 Group ID: [id number] PCN: [id number] Legal sex: F Group name: [id number] Address: [address] [place] [id number] Medication Being Authorized scopolamine (TRANSDERM-SCOP) patch 1.5 mg/72 hr (delivers 1 mg over 3 days) Apply 1 Patch as directed as directed. BEHIND THE EAR AT LEAST 4 HOURS PRIOR TO EXPOSURE AND EVERY 3 DAYS NEEDED. Dispense: 15 Patch Refills: 0 Start: 04/24/2024 End: 06/08/2024 Class: Normal Diagnoses: Motion sickness, subsequent encounter This order has been released to its destination. To be filled at: [facility] [id number] - [place] [address] [facility] [address] [phone] And pt via my chart. Allergies As of Date: 04/24/2024 (No Known Allergies) Date Reviewed: 11/24/2023 Reviewed by: Snow Rao MA - Fully Assessed Reason for Visit: Insurance Authorization [[id number]] Prescriptions as of 04/24/2024 - scopolamine (TRANSDERM-SCOP) patch 1.5 mg/72 hr (delivers 1 mg over 3 days) Apply 1 Patch as directed as directed. BEHIND THE EAR AT LEAST 4 HOURS PRIOR TO EXPOSURE AND EVERY 3 DAYS NEEDED. - Cholecalciferol, Vitamin D3, (VITAMIN D-3) 50 mcg (2,000 unit) cap Take 2,000 capsules by mouth once daily. - meloxicam (MOBIC) 15 mg tablet Take 1 tablet by mouth once daily. - VITAMIN K2 ORAL Take by mouth. - Miscellaneous Medical Supply 1 Each as directed. Oral/Dental Appliance for Sleep Apnea - MAGNESIUM ORAL Take by mouth. - vit B12/intrinsic fact/folate (INTRINSI R68-[id number] ORAL) Take by mouth. - krill oil 500 mg cap Take 1 capsule by mouth once daily. - CYANOCOBALAMIN, VITAMIN B-12, (VITAMIN B-12 ORAL) Take 300 mg by mouth once daily. Combo with Folate 400 mg - CALTRATE-600 PLUS VITAMIN D3 600 MG-200 UNIT TAB Take one(1) tablet two(2) times daily. Facility-Administered Medications as of 04/24/2024 - denosumab 60 mg injection (PROLIA) Problem List As Of Date 04/24/2024 Noted Resolved Hemorrhage of rectum and anus [K62.5] 12/22/2004 07/23/2016 MASS IN BREAST [N63.0] 11/09/2007 Uterovaginal prolapse, incomplete [N81.2] 12/19/2013 Screening for intestinal cancer [Z12.10] 07/04/2014 07/23/2016 Pelvic pressure in female [R10.2] 12/21/2014 Vaginal atrophy [N95.2] 12/21/2014 Menopausal symptoms [N95.1] 12/21/2014 Pelvic muscle wasting [N81.84] 12/21/2014 Osteoporosis [M81.0] 11/09/2022 Encounter Status:Closed by ERI[facility] ALTMAN [facility] Nurse Visit (FAMPWS) HANANE RIVERA ([id number]) 1955 F Date Time Provider Department 04/04/24 8:15 [facility] visit today, we recorded the following information about you: Peggy Vernon LPN 04/04/2024 8:34 AM Signed Patient presents for Prolia injection. Denies any problems at this time. Patient instructed on any SE of medication, verbalized understanding and agreed to proceed with treatment. Tolerated injection well. Peggy Vernon LPN Allergies As of Date: 04/04/2024 (No Known Allergies) Date Reviewed: 11/24/2023 Reviewed by: Snow Rao MA - Fully Assessed Reason for Visit: Imm/Inj [58] Primary Visit Diagnosis:Osteoporosis, unspecified osteoporosis type, unspecified pathological fracture presence [M81.0] Prescriptions as of 04/04/2024 - Cholecalciferol, Vitamin D3, (VITAMIN D-3) 50 mcg (2,000 unit) cap Take 2,000 capsules by mouth once daily. - meloxicam (MOBIC) 15 mg tablet Take 1 tablet by mouth once daily. - VITAMIN K2 ORAL Take by mouth. - Miscellaneous Medical Supply 1 Each as directed. Oral/Dental Appliance for Sleep Apnea - MAGNESIUM ORAL Take by mouth. - vit B12/intrinsic fact/folate (INTRINSI K45-[id number] ORAL) Take by mouth. - krill oil 500 mg cap Take 1 capsule by mouth once daily. - CYANOCOBALAMIN, VITAMIN B-12, (VITAMIN B-12 ORAL) Take 300 mg by mouth once daily. Combo with Folate 400 mg - CALTRATE-600 PLUS VITAMIN D3 600 MG-200 UNIT TAB Take one(1) tablet two(2) times daily. Facility-Administered Medications as of 04/04/2024 - denosumab 60 mg injection (PROLIA) Problem List As Of Date 04/04/2024 Noted Resolved Hemorrhage of rectum and anus [K62.5] 12/22/2004 07/23/2016 MASS IN BREAST [N63.0] 11/09/2007 Uterovaginal prolapse, incomplete [N81.2] 12/19/2013 Screening for intestinal cancer [Z12.10] 07/04/2014 07/23/2016 Pelvic pressure in female [R10.2] 12/21/2014 Vaginal atrophy [N95.2] 12/21/2014 Menopausal symptoms [N95.1] 12/21/2014 Pelvic muscle wasting [N81.84] 12/21/2014 Osteoporosis [M81.0] 11/09/2022 Encounter Status:Closed by PEGGY VERNON on 04/04/[address] [facility] 12-JE-Ohtrblb DOrdered By: Bibiana Keyes on 03-06-2024 Vitamin D 25-Hydroxy 42.0 ng/mL [facility] Comment on above: Vitamin D 25(OH) Sta tus Range Deficiency <20 ng/mL (50nmol/L) Insufficiency 20 - 30 ng/mL (50 - 75 nmol/L) Sufficiency 30 - 100 ng/mL (75 - 250 nmol/L) Toxicity >100 ng/mL (>250 nmol/L) Basic Metabolic Profile (BMP )on 03-06-2024 BUN/CRE 10.8 RATIO Normal 10-[address] [facility] Comment on above: Performed By: #### L 500.2500, L506.1000 #### [facility] [address] [place], [address] CA,Total 9.3 mg/dL Normal 8.5-10.[address] [facility] Comment on above: Performed By: #### L 500.2500, L506.1000 #### [facility] [address] [place], [address] Chloride [Moles/Vol] 105 mmol/L Normal 98-107 [facility] Comment on above: Performed By: #### L 500.2500, L506.1000 #### [facility] [address] [place], [address] CO2 [Moles/Vol] 28.0 mmol/L Normal 21.0-32.[address] [facility] Comment on above: Performed By: #### L 500.2500, L506.1000 #### [facility] [address] [place], [address] Creatinine [Mass/Vol] 0.74 mg/dL Normal 0.55-1.02 [facility] Comment on above: Result Comment: The validity of the calculated GFR GFRAA in patients over 70 years has not been determined. Clinical correlation is essential. Performed By: #### L 500.2500, L506.1000 #### [facility] [address] [place], [place], [address] EST GFR - AA 101 mL/min Normal >[address] [facility] Comment on above: Result Comment: Afri can [facility] GFR Calc Performed By: #### L 500.2500, L506.1000 #### [facility] [address] [place], [address] GAP 4 Low 5-[address] [facility] Comment on above: Performed By: #### L 500.2500, L506.1000 #### [facility] [address] [place], [address] GFR/1.73 sq M.predicted among non-blacks MDRD (S/P/Bld) [Vol rate/Area] 83 mL/min/{1.73_m2} Normal >[address] [facility] Comment on above: Result Comment: Non- GFR Calc Performed By: #### L 500.2500, L506.1000 #### [facility] [address] [place], [address] Glucose [Mass/Vol] 97 mg/dL Normal 74-106 [facility] Comment on above: Performed By: #### L 500.2500, L506.1000 #### [facility] [address] [place], [address] Potassium [Moles/Vol] 4.2 mmol/L Normal 3.5-5.1 [facility] Comment on above: Performed By: #### L 500.2500, L506.1000 #### [facility] [address] [place], [address] Sodium [Moles/Vol] 137 mmol/L Normal 136-145 [facility] Comment on above: Performed By: #### L 500.2500, L506.1000 #### [facility] [address] [place], [address] Urea nitrogen [Mass/Vol] 8 mg/dL Normal 7-[address] [facility] Comment on above: Performed By: #### L 500.2500, L506.1000 #### [facility] [address] [place], [address] Blood urea nitrogen (BUN)/cr eatinine ratioOrdered By: Munir Keyes on 03-06-2024 Urea nitrogen/Creatinine [Mass ratio] 10.8 mg/mg 10-[address] [facility] CNPNon 03-06[facility]2024 [facility] ([id number]) 1955 F Date Time Provider Department 03/06/24 MUNIR KEYES [facility] During your visit today, we recorded the following information about you: Connie Dc MA 03/06/2024 1:35 PM Signed View External Labs - BMP, Vit D [ID [id number]] Munir Keyes MD 03/06/2024 1:59 PM Signed Labs are ok. Ok to stop fosamax and begin prolia every six months. Was ordered. Will need appt to do. Stay on calcium and d Ferriman, Rama, DENTAL NURSE 03/06/2024 2:29 PM Signed Patient notified of results, verbalizes understanding of instructions. Pt will wait for phone call from office to schedule appt. After med has been received. MARLENE Dudley William J, MD 03/06/2024 3:05 PM Signed We already ordered in house, see chart Jacinda Valerio LPN 03/06/2024 3:17 PM Signed Medication is being ordered from pharmacy. Will let her know when it is delivered. Allergies As of Date: 03/06/2024 (No Known Allergies) Date Reviewed: 11/24/2023 Reviewed by: Snow Rao MA - Fully Assessed Reason for Visit: Results [95] Prescriptions as of 03/06/2024 - Cholecalciferol, Vitamin D3, (VITAMIN D-3) 50 mcg (2,000 unit) cap Take 2,000 capsules by mouth once daily. - meloxicam (MOBIC) 15 mg tablet Take 1 tablet by mouth once daily. - VITAMIN K2 ORAL Take by mouth. - Miscellaneous Medical Supply 1 Each as directed. Oral/Dental Appliance for Sleep Apnea - MAGNESIUM ORAL Take by mouth. - vit B12/intrinsic fact/folate (INTRINSI P00-[id number] ORAL) Take by mouth. - krill oil 500 mg cap Take 1 capsule by mouth once daily. - CYANOCOBALAMIN, VITAMIN B-12, (VITAMIN B-12 ORAL) Take 300 mg by mouth once daily. Combo with Folate 400 mg - CALTRATE-600 PLUS VITAMIN D3 600 MG-200 UNIT TAB Take one(1) tablet two(2) times daily. Facility-Administered Medications as of 03/06/2024 - denosumab 60 mg injection (PROLIA) Problem List As Of Date 03/06/2024 Noted Resolved Hemorrhage of rectum and anus [K62.5] 12/22/2004 07/23/2016 MASS IN BREAST [N63.0] 11/09/2007 Uterovaginal prolapse, incomplete [N81.2] 12/19/2013 Screening for intestinal cancer [Z12.10] 07/04/2014 07/23/2016 Pelvic pressure in female [R10.2] 12/21/2014 Vaginal atrophy [N95.2] 12/21/2014 Menopausal symptoms [N95.1] 12/21/2014 Pelvic muscle wasting [N81.84] 12/21/2014 Osteoporosis [M81.0] 11/09/2022 Medications Discontinued During This Encounter Prescriptions - alendronate (FOSAMAX) 70 mg tablet (Discontinued) Take 1 tablet by mouth one time a week. Take with a full glass of water, on an empty stomach; do NOT lie down for 30minutes. Encounter Status:Closed by JACINDA VALERIO on 03/06/24 [facility] Carbon dioxide measurementOr dered By: Munir Keyes on 03-06-2024 CO2 [Moles/Vol] 28.0 mmol/L 21.0-32.[address] [facility] Chloride measurementOrdered By: Munir Keyes on 03-06-2024 Chloride [Moles/Vol] 105 mmol/L 98-107 [facility] Estimated glomerular filtrat ion rate (GFR) AmericanOrdered By: Munir Keyes on 03-06-2024 Estimated GFR (MDRD) Amer 101 mL/min >[address] [facility] Comment on above: GFR Calc Glomerular filtration rate ( GFR) estimationOrdered By: Munir Keyes on 03-06-2024 Estimated GFR (MDRD) Non-Af Amer 83 mL/min >[address] [facility] Comment on above: Non- GFR Calc Glucose measurementOrdered B y: Muinr Keyes on 03-06-2024 Glucose [Mass/Vol] 97 mg/dL 74-106 [facility] Potassium measurementOrdered By: Munir Keyes on 03-06-2024 Potassium [Moles/Vol] 4.2 mmol/L 3.5-5.1 [facility] Serum anion gap measurementO rdered By: Munir Keyes on 03-06-2024 Anion gap [Moles/Vol] 4 mmol/L Low 5-15 [facility] Serum or plasma calcium ronald urement (mass/volume)Ordered By: Munir Keyes on 03-06-2024 Calcium [Mass/Vol] 9.3 mg/dL 8.5-10.1 [facility] Serum or plasma creatinine m easurement (mass/volume)Ordered By: Munir Keyes on 03-06-2024 Creatinine [Mass/Vol] 0.74 mg/dL 0.55-1.02 [facility] Comment on above: The validity of the calculated GFR & GFRAA in patients over 70 years has not been determined. Clinical correlation is essential. Serum or plasma urea nitroge n measurement (mass/volume)Ordered By: Munir Keyes on 03-06-2024 Urea nitrogen [Mass/Vol] 8 mg/dL 7-[address] [facility] Sodium levelOrdered By: Juan Keyes on 03-06-2024 Sodium [Moles/Vol] 137 mmol/L 136-145 [facility] Vitamin D,25 Hydroxyon 03-06 Vitamin D 25-OH 42.0 ng/mL Normal [facility] Comment on above: Result Comment: [place] min D 25(OH) Status Range Deficiency <20 ng/mL (50nmol/L) Insufficiency 20 - 30 ng/mL (50 - 75 nmol/L) Sufficiency 30 - 100 ng/mL (75 - 250 nmol/L) Toxicity >100 ng/mL (>250 nmol/L) Performed By: #### L 500.2500, L506.1000 #### [facility] [address] [place], [place], [id number] Sjogren's Antibodies A/Bon 1 03-06-2023 ANTI-SS-A < 0.2 Normal 0.0-0.[address] [facility] Comment on above: Performed By: #### L 258.6268, Y7465.6263 #### [facility] [address] [place], [place], [id number] ANTI-SS-B < 0.2 Normal 0.0-0.[address] [facility] Comment on above: Result Comment: Perf ormed at: - [facility] [address] [id number] Napping Machine Operator: Mickey Bray PhD, Phone: [phone] Performed By: #### L 483.3206, R2120.3158 #### [facility] [address] [place], [place], [id number] CRPon 01-04-2024 C-REACTIVE PROT < 2.90 Normal 0.0-3.[address] [facility] Comment on above: Result Comment: C-Re active Protein (CRP) provides useful information for the diagnosis, therapy and monitoring of inflammatory processes and associated diseases. For the evaluation of Relative Risk for Cardiovascular Disease, a High Sensitivity CRP (HSCRP) should be ordered. Performed By: #### L 501.6710, L3100.9100 #### [facility] [address] [place], [address] [facility] 12-30-2023 [facility] HANANE RIVERA ([id number]) 1955 F Date Time Provider Department 12/30/23 GRIFFIN COOK [facility] During your visit today, we recorded the following information about you: Griffin Cook DO 12/30/2023 8:39 AM Signed Labs printed for dry eye and dry mouth symptoms Griffin Cook DO Allergies As of Date: 12/30/2023 (No Known Allergies) Date Reviewed: 11/24/2023 Reviewed by: Snow Rao MA - Fully Assessed Primary Visit Diagnosis:Dry mouth [R68.2] Other Visit Diagnosis:Dry eyes [H04.123] Order(s):ANTI SSA BLD [SQANTSSA] Order #: [id number] FUTURE SJOGREN ABS SSA/SSB [SQXSSAB] Order #: [id number] FUTURE CAMILLE BLOOD [SQANAS] Order #: [id number] FUTURE C-REACTIVE PROTEIN [SQCRP] Order #: [id number] FUTURE Prescriptions as of 02/10/2024 - Cholecalciferol, Vitamin D3, (VITAMIN D-3) 50 mcg (2,000 unit) cap Take 2,000 capsules by mouth once daily. - meloxicam (MOBIC) 15 mg tablet Take 1 tablet by mouth once daily. - VITAMIN K2 ORAL Take by mouth. - alendronate (FOSAMAX) 70 mg tablet Take 1 tablet by mouth one time a week. Take with a full glass of water, on an empty stomach; do NOT lie down for 30minutes. - Miscellaneous Medical Supply 1 Each as directed. Oral/Dental Appliance for Sleep Apnea - MAGNESIUM ORAL Take by mouth. - vit B12/intrinsic fact/folate (INTRINSI W48-[id number] ORAL) Take by mouth. - krill oil 500 mg cap Take 1 capsule by mouth once daily. - CYANOCOBALAMIN, VITAMIN B-12, (VITAMIN B-12 ORAL) Take 300 mg by mouth once daily. Combo with Folate 400 mg - CALTRATE-600 PLUS VITAMIN D3 600 MG-200 UNIT TAB Take one(1) tablet two(2) times daily. Problem List As Of Date 12/30/2023 Noted Resolved Hemorrhage of rectum and anus [K62.5] 12/22/2004 07/23/2016 MASS IN BREAST [N63.0] 11/09/2007 Uterovaginal prolapse, incomplete [N81.2] 12/19/2013 Screening for intestinal cancer [Z12.10] 07/04/2014 07/23/2016 Pelvic pressure in female [R10.2] 12/21/2014 Vaginal atrophy [N95.2] 12/21/2014 Menopausal symptoms [N95.1] 12/21/2014 Pelvic muscle wasting [N81.84] 12/21/2014 Osteoporosis [M81.0] 11/09/2022 Encounter Status:Closed by NIKI KAYE on 02/10/24 [facility] Raquel 11-24-2023 CNOV Office Visit (WS ) HANANE RIVERA ([id number]) 1955 F Date Time Provider Department 11/24/23 1:30 PM [facility] During your visit today, we recorded the following information about you: Snow Rao MA 11/24/2023 1:52 PM Signed AMB ROOMING INTAKE FLOWSHEET DATA Pain Pain Level: 2 Pain Location: Hip-Right Description: Aching, Dull Duration Amount of Time: 9 Duration Units: Hours Frequency: Intermittent Intervention/Comfort measure: Reposition Patient here today for right hip pain. Beau Eid V, DO 11/24/2023 1:52 PM Signed SERVICE DATE: November 24, 2023 PCP: Munir Keyes MD Subjective Patient ID: Hanane is a 68 year old female. Chief Complaint: Patient presents with: Right Hip Pain PAIN EVALUATION 11/23/2023 1745 Pain Level: 2 Pain Location: Hip-Right Description: Aching;Dull Duration Amount of Time: 9 Duration Units: Hours Frequency: Intermittent Intervention/Comfort measure: Reposition HPI Patient presents today with right lateral and posterior hip pain. She said the pain has been off and on for a couple of years. Pain seems to be worse at night and in the morning when she first wakes up and then improves slightly as the day goes on. No significant injury mechanism associated with onset of pain. TREATMENTS PRIOR TO INITIAL CONSULT: Review of Systems ACTIVE PROBLEM LIST MASS IN BREAST Uterovaginal Prolapse, Incomplete Pelvic Pressure in Female Vaginal Atrophy Menopausal Symptoms Pelvic Muscle Wasting Osteoporosis PAST MEDICAL HISTORY Diagnosis Date Cystocele Diverticulosis of colon (without mention of hemorrhage) Hemorrhage of rectum and anus Hx of fracture of arm right forearm Osteoporosis Pure hypercholesterolemia hdl is 102 in 2017 [...] Never Smokeless tobacco: Never Vaping Use Vaping status: Never Used Substance Use Topics Alcohol use: Yes Comment: Seldom Drug use: No ALLERGIES No Known Allergies MEDICATIONS: Cholecalciferol, Vitamin D3, (VITAMIN D-3) 50 mcg (2,000 unit) cap Take 2,000 capsules by mouth once daily. VITAMIN K2 ORAL Take by mouth. alendronate (FOSAMAX) 70 mg tablet Take 1 tablet by mouth one time a week. Take with a full glass of water, on an empty stomach; do NOT lie down for 30minutes. MAGNESIUM ORAL Take by mouth. vit B12/intrinsic fact/folate (INTRINSI B36-MDEVIQ ORAL) Take by mouth. CYANOCOBALAMIN, VITAMIN B-12, (VITAMIN B-12 ORAL) Take 300 mg by mouth once daily. Combo with Folate 400 mg CALTRATE-600 PLUS VITAMIN D3 600 MG-200 UNIT TAB Take one(1) tablet two(2) times daily. meloxicam (MOBIC) 15 mg tablet Take 1 tablet by mouth once daily. Miscellaneous Medical Supply 1 Each as directed. Oral/Dental Appliance for Sleep Apnea krill oil 500 mg cap Take 1 capsule by mouth once daily. Allergies, medications, past surgical history, family history and past medical history were reviewed per this encounter. Objective Ortho Exam 68-year-old female pleasant cooperative exam in no acute distress. External examination shows no significant leg length discrepancy. There is normal range of motion in the hip with flexion abduction external rotation and internal rotation. There is tenderness with palpation of the posterior muscle group abductor and external rotators, as well as over the sacroiliac joint on the right side. Assessment/Plan ASSESSMENT Diagnosis (M53.3) Sacroiliac joint dysfunction (primary encounter diagnosis) No orders found for this visit on 11/24/23. PLAN Discussed hip debilitation program with handout given Meloxicam 1 p.o. at bedtime Percy potential cortisone injection in the future to the SI joint if necessary but would put that off at this time due to patient's underlying diagnosis of osteoporosis. Discussed considering Prolia over Fosamax treatment of osteoporosis FOLLOW-UP: No follow-ups on file. SIGNATURE: De (more content not included)... Normal [facility] XR HIP 3V PELV+ AP/LAT RTon 11-24-2023 XR HIP 3V PELV+ AP/LAT RT * * *Final Report* * * DATE OF EXAM: Nov 24 2023 12:59PM WRX [id number] - XR HIP 3V PELV+ AP/LAT RT / PROCEDURE REASON: Pain in right hip * * * * Physician Interpretation * * * * EXAMINATION: XR HIP 3V PELV+ AP/LAT RT CLINICAL HISTORY: Right hip pain Technique: XR HIP 3V PELV+ AP/LAT RT -- RIGHT with 3 views on 3 images Comparison: None RESULT: No acute fracture or dislocation. Joint spaces are maintained. IMPRESSION: No acute osseous abnormality Med Admin: COREY Transcribe Date/Time: Nov 29 2023 11:46A Dictated by : PEGGY EDGAR MD This examination was interpreted and the report reviewed and electronically signed by: PEGGY EDGAR MD on Nov 29 2023 11:47AM EST [id number] Normal [facility] CNOVon 11-04-2023 CNOV Office Visit (OBGYWM ) HANANE RIVERA ([id number]) 1955 F Date Time Provider Department 11/04/23 1:40 PM ERNST KERN OBGYWM During your visit today, we recorded the following information about you: Blood pressure Weight Height 102/68 71.7 kg 1.645 m Ernst Kern MD 11/04/2023 2:12 PM Signed Hanane is a 68 year old who presents for an annual gynecologic exam without complaints. Postmenopausal: yes HRT use: No. Last Pap: 07/30/2022 normal HPV: 06/23/2018 negative History of abnormal pap: No Last mammogram: 2023 normal History of abnormal mammogram: No Sexually active: Yes OB History T2 L2 SAB0 IAB0 Ectopic0 Multiple0 Live Births0 Comment: NVD X 2. NO COMPLICATIONS. Rubber Thread Spooler History LMP: 2009, Postmenopausal Age at Menarche: Age at First : Age at Menopause: Rubber Thread Spooler History Comments: Sexual Activity: Yes; Male Contraception: No contraception data on record PAST MEDICAL HISTORY No date: Cystocele No date: Diverticulosis of colon (without mention of hemorrhage) No date: Hemorrhage of rectum and anus No date: Hx of fracture of arm Comment: right forearm No date: Osteoporosis No date: Pure hypercholesterolemia Comment: hdl is 102 in 2017 No date: Rectocele No date: Unspecified closed fracture of ankle Comment: Ankle fracture No date: Unspecified hemorrhoids without mention of complication No date: Uterine prolapsePAST SURGICAL HISTORY No date: APPENDECTOMY 01/09/05: COLONOSCOPY FLX DX W/COLLJ SPEC WHEN PFRMD 6: COLONOSCOPY FLX DX W/COLLJ SPEC WHEN PFRMD No date: LIGJ DIVJ AND/EXCJ VARICOSE VEIN CLUSTER 1 LEG Comment: Varicose Vein Surgery - No complications 2012: OTHER Comment: right forearm fracture; permanent plates : PAST SURGICAL HISTORY OF Comment: ANKLE 01/2014: PAST SURGICAL HISTORY OF Comment: Uphold sacrospinous hysteropexy.Cystocele repair Rectocele repair FAMILY HISTORY Problem Relation Age of Onset Osteoporosis Mother Hypertension Mother Breast Cancer Mother other (Sarcoidosis) Mother Lipids Father High Cholesterol Diabetes Maternal Grandmother Coronary Artery Disease Maternal Grandmother Coronary Artery Disease Paternal Grandfather SOCIAL HISTORY Social History Tobacco Use Smoking status: Never Smokeless tobacco: Never Vaping Use Vaping status: Never Used Substance Use Topics Alcohol use: Yes Comment: Seldom Drug use: No REVIEW OF SYSTEMS Abdomen: No abdominal pain, nausea, vomiting, diarrhea, or constipation. No bloating, early satiety, indigestion, or increased flatulence. Bladder: No dysuria, gross hematuria, urinary frequency, urinary urgency, or incontinence Breast: No breast lumps, nipple d/c, overlying skin changes, redness or skin retraction Allergies and current medication updated:Yes EXAM: BP 102/68 Ht 5' 4.75 (1.65m) Wt 158 lb (71.7kg) LMP 2009 BMI 26.48 kg/(m2). GENERAL: pleasant, female in no apparent [...] external genitalia normal, normal Bartholin's glands, urethra, [place]'s glands, no vulvar lesions, no cervical lesions, good vaginal support, physiologic discharge present, normal appearing perineal body and perianal region BIMANUAL: uterus normal size, shape and consistency, no adnexal masses, and non-tender RECTOVAGINAL: deferred. NEURO: alert and oriented x3,exam grossly non-focal EXTREMITIES: normal ASSESSMENT/PLAN: 1) Health maintenance: Pap/HPV screening no longer needed Mammogram ordered BMD: followed by PCP 2) Follow up one year or sooner as needed Ernst Kern MD Referring Provider: SELF [200] Allergies As of Date: 11/04/2023 (No Known Allergies) Date Reviewed: 11/04/2023 Reviewed by: Ernst Kern MD - Fully Assessed Reason for Visit: Yearly Exam [187] Primary Visit Diagnosis:Encounter for gynecological examination (general) (routine) without abnormal findings [Z01.419] Prescriptions as of 11/04/2023 - VITAMIN K2 ORAL Take by mouth. - alendronate (FOSAMAX) 70 mg tablet Take 1 tablet by mouth one time a week. Take with a full glass of water, on an empty stomach; do NOT lie down for 30minutes. - Miscellaneous Medical Supply 1 Each as directed. Oral/Dental Appliance for Sleep Apnea - MAGNESIUM ORAL Take by mouth. - vit B12/intrinsic fact/folate (INTRINSI R62-UHQQEI ORAL) Take by mouth. - krill oil 500 mg cap Take 1 capsule by mouth (more content not included)... Normal [facility] CNCOon 09-15-2023 CNCO Letter Text Normal [facility] CNOVon 08-20-2023 CNOV Office Visit (FAMPWS ) HANANE RIVERA ([id number]) 1955 F Date Time Provider Department 08/20/23 9:20 AM MUNIR KEYES During your visit today, we recorded the following information about you: Pulse Blood pressure Weight Height 70/minute 110/66 72.1 kg 1.651 m Munir Keyes MD 08/20/2023 10:05 AM Signed Patient presents with: Yearly Exam HPI: Patient presents today for office visit for yearly follow up. Had HSAT 08/25/22 Has mild sleep apnea Sees Dr. Oliveira (Dentist) in [place]. Wears oral device at night . Needs repeat sleep study. When device not in. Snoring, tiredness, frequent awakenings, grinding and has documented sleep apnea. Continues on Fosamax 70 mg weekly. No issues. Using calcium and vit d with it as well. Also doing mag. Due for bone density in Labs done 07/23/23 [facility] (scanned docs) . Had stress test done in last year. Equivocal MVP Was done for shortness of breath last year. Discussed caloric restriction for weight loss. MEDICATIONS: Current Outpatient Medications Medication Sig alendronate (FOSAMAX) 70 mg tablet Take 1 tablet by mouth one time a week. Take with a full glass of water, on an empty stomach; do NOT lie down for 30minutes. Miscellaneous Medical Supply 1 Each as directed. Oral/Dental Appliance for Sleep Apnea MAGNESIUM ORAL Take by mouth. vit B12/intrinsic fact/folate (INTRINSI W43-RAJYPN ORAL) Take by mouth. krill oil 500 mg cap Take 1 capsule by mouth once daily. CYANOCOBALAMIN, VITAMIN B-12, (VITAMIN B-12 ORAL) Take 300 mg by mouth once daily. Combo with Folate 400 mg Multivitamin (DAILY MULTIVITAMIN) ORAL Tab Take one(1) tablet daily. CALTRATE-600 PLUS VITAMIN D3 600 MG-200 UNIT TAB Take one(1) tablet two(2) times daily. Current Facility-Administered Medications Medication Dose Route Frequency perflutren lipid microspheres 1.3 mL in NaCl (PF) 0.9% 10 mL injection (DEFINITY) INTRAVENOUS DIRECTED PRN sodium chloride 0.9 % (flush) 10 mL (BD POSIFLUSH) 10 mL INTRAVENOUS DIRECTED PRN ALLERGIES: ALLERGIES No Known Allergies PAST MEDICAL [...] and social history today. REVIEW OF SYSTEMS No chest pain, shortness of breath. No gi or gu issues. All other reviewed and negative other than HPI. HEALTH MAINTENANCE: Reviewed health maintenance issues today and recommended the following in detail. RSV Vaccine(1 - 1-dose 60+ series) Never done Covid-19 Vaccine(2022- season) due on 10/30/2022 Advance Directive Discussion -., daughter as surrogate. Behavioral Health Screening -Behavioral Health Screening PHQ-2 Score: 0 (Lower risk for depression) JEFF-2 Score: 0 (Lower risk for anxiety) Recommendation: no further intervention at this time VITALS: BP 110/66 Pulse 70 Ht 165.1 cm (5' 5) Wt 72.1 kg (159 lb) LMP 2009 SpO2 96% BMI 26.46 kg/m? Last 4 Encounter Wt Readings: Date: Wt: 08/20/2023 72.1 kg (159 lb) 08/13/2022 73.5 kg (162 lb) 07/22/2022 72.6 kg (160 lb 1.6 oz) 12/23/2020 68.9 kg (152 lb) PHYSICAL EXAMINATION: General appearance: Well appearing, alert, in no acute distress, well-hydrated, well nourished. Skin: Skin color, texture, turgor normal, no suspicious rashes or lesions Head: Normocephalic, no masses, lesions, tenderness or abnormalities Lungs: Lungs clear to auscultation. No wheezing, rhonchi, rales Heart: RRR without murmur, gallop, or rubs. No ectopy Abdomen: Normal abdominal exam, Abdomen so (more content not included)... Normal [facility] LIPID PANEL (OUTSIDE)Ordered By: Connie Dc on 07-23-2023 Cholesterol [Mass/Vol] 247 mg/dL [facility] Cholesterol in HDL [Mass/Vol] 84 mg/dL [facility] Cholesterol in LDL [Mass/Vol] 146 mg/dL [facility] LDL:HDL Ratio [facility] Non-HDL Cholesterol [facility] TC:HDL Ratio [facility] Triglyceride [Mass/Vol] 84 mg/dL [facility] VLDL Cholesterol 17 [facility] CNPNon 07-02-2023 CNPN Telephone (FAMPWS) HANANE RIVERA ([id number]) 1955 F Date Time Provider Department 07/02/23 [facility] During your visit today, we recorded the following information about you: Munir Keyes MD 07/02/2023 8:46 AM Signed I think she needs sent over to hospital. Connie Dc MA 07/02/2023 9:52 AM Signed Orders faxed. Connie Dc MA Allergies As of Date: 07/02/2023 (No Known Allergies) Date Reviewed: 07/22/2022 Reviewed by: Ernst Kern MD - Fully Assessed Primary Visit Diagnosis:Osteoporosis, unspecified osteoporosis type, unspecified pathological fracture presence [M81.0] Other Visit Diagnoses:Fatigue, unspecified type [R53.83] Medication monitoring encounter [Z51.81] Elevated LDL cholesterol level [E78.00] Order(s):COMPLETE BLOOD COUNT AND DIFFERENTIAL [SQCBCDIF] Order #: [id number] FUTURE COMPREHENSIVE METABOLIC PANEL [SQCMP] Order #: [id number] FUTURE LIPID PANEL BASIC [SQLIPB] Order #: [id number] FUTURE THYROID STIMULATING HORMONE [SQTSH] Order #: [id number] FUTURE VITAMIN D 25 HYDROXY [SQVITD] Order #: [id number] FUTURE MAGNESIUM [SQMG1] Order #: [id number] FUTURE VITAMIN B12 [SQB12] Order #: [id number] FUTURE Prescriptions as of 07/02/2023 - alendronate (FOSAMAX) 70 mg tablet Take 1 tablet by mouth one time a week. Take with a full glass of water, on an empty stomach; do NOT lie down for 30minutes. - scopolamine (TRANSDERM-SCOP) patch 1.5 mg/72 hr (delivers 1 mg over 3 days) Apply 1 Patch as directed every 72 hours. Apply patch to skin behind ear 4hrs prior to travel. - promethazine (PHENERGAN) 25 mg tablet Take 1 tablet by mouth every 6 hours as needed. - ondansetron orally disintegrating (ZOFRAN ODT) 4 mg disintegrating tablet Take 1 tablet by mouth every 6 hours as needed for nausea/vomiting. - Miscellaneous Medical Supply 1 Each as directed. Oral/Dental Appliance for Sleep Apnea - MAGNESIUM ORAL Take by mouth. - vit B12/intrinsic fact/folate (INTRINSI [id number] ORAL) Take by mouth. - krill oil 500 mg cap Take 1 capsule by mouth once daily. - CYANOCOBALAMIN, VITAMIN B-12, (VITAMIN B-12 ORAL) Take 300 mg by mouth once daily. Combo with Folate 400 mg - Multivitamin (DAILY MULTIVITAMIN) ORAL Tab Take one(1) tablet daily. - CALTRATE-600 PLUS VITAMIN D3 600 MG-200 UNIT TAB Take one(1) tablet two(2) times daily. Facility-Administered Medications as of 07/02/2023 - perflutren lipid microspheres 1.3 mL in NaCl (PF) 0.9% 10 mL injection (DEFINITY) - sodium chloride 0.9 % (flush) 10 mL (BD POSIFLUSH) Problem List As Of Date 07/02/2023 Noted Resolved Hemorrhage of rectum and anus [K62.5] 12/22/2004 07/23/2016 MASS IN BREAST [N63.0] 11/09/2007 Uterovaginal prolapse, incomplete [N81.2] 12/19/2013 Screening for intestinal cancer [Z12.10] 07/04/2014 07/23/2016 Pelvic pressure in female [R10.2] 12/21/2014 Vaginal atrophy [N95.2] 12/21/2014 Menopausal symptoms [N95.1] 12/21/2014 Pelvic muscle wasting [N81.84] 12/21/2014 Osteoporosis [M81.0] 11/09/2022 Encounter Status:Closed by CONNIE DC on 07/02/[address] [facility] No Panel InformationOrdered By: Dr. Keyes on 08-19-2022 Rubella IgG Antibody Reactive Nonreactive [facility] Comment on above: Antibody Results Int erpretation of Immune Status Non Reactive Presumed Non-Immune Equivocal Equivocal Reactive Presumed Immune Hepatitis A Antibody Total Negative Negative [facility] Comment on above: Performed at: [facility] [address] Director: Mickey Bray PhD, Phone: [phone] Serum hepatitis B virus surf tomás antibody IgG detectionOrdered By: Dr. Keyes on 08-19-2022 HBV surface IgG Ql (S) Reactive [facility] Comment on above: Non Reactive: Incons istent with immunity less than <10 mIU/mL Reactive: Consistent with immunity greater than or equal to 10 mIU/mL Serum measles virus IgG anti body assay by immunoassay (units/volume)Ordered By: Dr. Keyes on 08-19-2022 MeV IgG IA Qn (S) > 300.0 AU/mL Immune >16.4 [facility] Comment on above: Negative <13.5 Equiv ocal 13.5 - 16.4 Positive >16.4Presence of antibodies to Rubeola is presumptive evidenceof immunity except when acute infection is suspected. Serum mumps virus IgG antibo dy assay (units/volume)Ordered By: Dr. Keyes on 08-19-2022 MuV IgG Qn (S) 89.4 AU/mL Immune >10.[address] [facility] Comment on above: Negative <9.0 Equivo jacqueline 9.0 - 10.9 Positive >10.9A positive result generally indicates past exposure toMumps virus or previous vaccination. LIPID PANEL (OUTSIDE)on 04-02 Cholesterol [Mass/Vol] 249 mg/dL [facility] Cholesterol in HDL [Mass/Vol] 103 mg/dL [facility] Cholesterol in LDL [Mass/Vol] 131 mg/dL [facility] TC:HDL Ratio 240 [facility] Triglyceride [Mass/Vol] 74 mg/dL [facility] VLDL Cholesterol 15 [facility] Vital Signs Date Time Vital Sign Value Performing Clinician Faci lity 11-04-2023 13:48-0400 Body height 164.5 cm Ernst Kern MD Work Phone: [facility] 11-04-2023 13:48-0400 Body mass index (BMI) [Ratio] 26.5 kg/m2 Ernst Kern MD Work Phone: [facility] 11-04-2023 13:48-0400 Body weight 71.67 kg Ernst Kern MD Work Phone: [facility] 11-04-2023 13:48-0400 Diastolic blood pressure 68 mm[Hg] Ernst Kern MD Work Phone: [facility] 11-04-2023 13:48-0400 Systolic blood pressure 102 mm[Hg] Ernst Kern MD Work Phone: [facility] 08-20-2023 09:07-0400 Body height 165.1 cm Munir Keyes MD Work Phone: [facility] 08-20-2023 09:07-0400 Body mass index (BMI) [Ratio] 26.46 kg/m2 Munir Keyes MD Work Phone: [facility] 08-20-2023 09:07-0400 Body weight 72.12 kg Munir Keyes MD Work Phone: [facility] 08-20-2023 09:07-0400 Diastolic blood pressure 66 mm[Hg] Munir Keyes MD Work Phone: [facility] 08-20-2023 09:07-0400 Heart rate 70 /min Munir Keyes MD Work Phone: [facility] 08-20-2023 09:07-0400 SaO2% (BldA) [Mass fraction] 96 % Munir Keyes MD Work Phone: [facility] 08-20-2023 09:07-0400 Systolic blood pressure 110 mm[Hg] Munir Keyes MD Work Phone: [facility] 08-13-2022 08:16-0400 Body weight 73.48 kg Munir Keyes MD Work Phone: [facility] 08-13-2022 08:16-0400 Diastolic blood pressure 68 mm[Hg] Munir Keyes MD Work Phone: [facility] 08-13-2022 08:16-0400 Heart rate 66 /min Munir Keyes MD Work Phone: [facility] 08-13-2022 08:16-0400 SaO2% (BldA) [Mass fraction] 95 % Munir Keyes MD Work Phone: [facility] 08-13-2022 08:16-0400 Systolic blood pressure 102 mm[Hg] Munir Keyes MD Work Phone: [facility] Encounters Encounter Date Encounter Type Care Provider Facility Start: 09-05-2024 End: 09-05-2024 ambulatory Munir Keyes MD Work Phone: [facility] [place] Comment on above: Prolia side effect Start: 08-22-2024 End: 08-23-2024 Get Medical Advice Elizabeth Hills 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 for me to have done- I work there. Lowell Pritchett Start: 08-21-2024 End: 08-22-2024 ambulatory Munir Keyes MD Work Phone: [facility] [place] Start: 08-21-2024 End: 08-22-2024 Patient encounter procedure Munir Keyes MD Work Phone: [facility] Comment on above: Upcoming Appointment conflict Start: 05-15-2024 End: 05-15-[address] Munir Keyes MD Work Phone: 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 Start: 04-24-2024 End: 04-24-2024 ambulatory Munir Keyes MD Work Phone: [facility] Comment on above: Scopolamine patches Mammogram order Start: 04-24-2024 End: 04-24-2024 Telephone encounter Munir Keyes MD Work Phone: [facility] Comment on above: Insurance Authorizat ion Start: 04-04-2024 End: 04-04-2024 ambulatory [facility] Facility:[facility] Start: 04-04-2024 End: 04-04-2024 Nursing evaluation of patient and report Mi Nurse Work Phone: [facility] Comment on above: Osteoporosis, unspec ified osteoporosis type, unspecified pathological fracture presence (Primary Dx) Start: 03-06-2024 End: 03-06-2024 Telephone encounter Munir Keyes MD Work Phone: [facility] Comment on above: Results Start: 03-06-2024 End: 03-06-[address] Munir Keyes MD -Laboratory Work Phone: Start: 03-06-2024 End: 03-06-2024 ambulatory [facility] Facility:[facility] Start: 01-04-2024 End: 01-04-2024 ambulatory Griffin Cook Facility:[facility] Start: 12-30-2023 End: 02-10-2024 Telephone encounter Griffin Cook DO Work Phone: [facility] Start: 11-24-2023 End: 11-24-2023 Patient encounter procedure Beau Eid DO Work Phone: [facility] [place] Comment on above: Sacroiliac joint dys function (Primary Dx) Start: 11-24-2023 End: 11-24-2023 ambulatory BEAU EID Facility:[facility] Start: 11-24-2023 End: 11-24-2023 Subsequent hospital visit by physician [facility] Work Phone: Radiology Comment on above: Pain in right hip [M 25.551] Start: 11-16-2023 End: 11-16-2023 Orders Only Beau Eid DO Work Phone: Orthopaedics Comment on above: Pain in right hip (P rimary Dx) Start: 11-04-2023 End: 11-04-2023 ambulatory ERNST KERN Facility:[facility] Start: 11-04-2023 End: 11-04-2023 Patient encounter procedure Ernst Kern MD Work Phone: OB/Gynecology Comment on above: Encounter for gyneco logical examination (general) (routine) without abnormal findings (Primary Dx) Start: 11-04-2023 End: 11-04-2023 Patient encounter status Ernst Kern MD Work Phone: [facility] Start: 10-14-2023 ambulatory Munir Keyes MD Work Phone: [facility] [place] Comment on above: COVID/ congestion Start: 09-14-2023 ambulatory Munir Keyes MD Work Phone: [facility] Comment on above: Burning tongue Start: 08-28-2023 End: 08-28-2023 ambulatory Munir Keyes Facility:[facility] Start: 08-20-2023 End: 08-20-2023 ambulatory MUNIR KEYES Facility:[facility] Start: 08-20-2023 End: 08-20-2023 Patient encounter procedure Munir Keyes MD Work Phone: [facility] Comment on above: Osteoporosis, unspec ified osteoporosis type, unspecified pathological fracture presence (Primary Dx); WILSON (obstructive sleep apnea) Start: 07-23-2023 Chart abstracting Munir Lewis MD Work Phone: [facility] Start: 07-02-2023 Telephone encounter Munir Keyes MD Work Phone: [facility] Start: 05-11-2023 End: 05-11-[address] Munir Keyes Work Phone: [facility] Work Phone: Start: 05-11-2023 End: 05-11-[address] Munir Keyes Work Phone: [facility]-Outpatient Breast Imaging Work Phone: Start: 04-01-2023 Refill Munir Keyes MD Work Phone: [facility] Comment on above: Refill Request Start: 01-27-2023 ambulatory Munir Keyes MD Work Phone: [facility] [place] Start: 01-27-2023 Follow-up encounter Munir Keyes MD Work Phone: [facility] Comment on above: sleep apnea follow u p home study Start: 01-18-2023 Non-patient / Non-visit Dr. Manju Keyes Work Phone: [facility] Start: 01-18-2023 End: 01-18-[address] Munir Keyes Work Phone: [facility]-Cardiovascula r Services Work Phone: Start: 11-12-2022 ambulatory Munir Keyes MD Work Phone: [facility] Comment on above: Fosamax Start: 11-04-2022 End: 11-04-[address] [facility] Work Phone: Start: 11-04-2022 End: 11-04-2022 Patient encounter procedure [facility]-Outpatient Bone Densitometry Work Phone: Start: 10-14-2022 Telephone encounter Munir Keyes MD Work Phone: [facility] Comment on above: Form for sleep apnea appliance Start: 09-15-2022 Telephone encounter Munir Keyes MD Work Phone: [facility] Comment on above: Rx for Sleep Apnea Roger farrell Start: 08-25-2022 End: 08-25-[address] [facility] Work Phone: Start: 08-25-2022 End: 08-25-2022 Patient encounter procedure [facility]-Sleep Lab Work Phone: Start: 08-19-2022 Telephone encounter Munir Keyes MD Work Phone: [facility] Comment on above: Results Start: 08-19-2022 End: 08-19-[address] [facility] Work Phone: Start: 08-19-2022 End: 08-19-2022 Patient encounter procedure [facility]-Laboratory Start: 08-13-2022 End: 08-13-2022 Patient encounter procedure Munir Keyes MD Work Phone: [facility] Comment on above: SOB (shortness of br eath) (Primary Dx); Screening for viral disease; Need for vaccination; WILSON (obstructive sleep apnea); Post-menopausal Start: 04-14-2022 ambulatory Munir Keyes MD Work Phone: [facility] Comment on above: labwork Start: 04-13-2022 ambulatory Ernst hogan MD Work Phone: OB/Gynecology Comment on above: mammogram Procedures Date Procedure Procedure Detail Performing Clinician Start: 05-15-2024 Screening mammography D r. Munir Keyes MD Work Phone: Start: 08-20-2023 Adult depression scr eening assessment Munir Keyes MD Work Phone: Start: 07-23-2023 Lipid panel [facility] Start: 07-23-2023 Lipid 1996 panel - S lavonne or Plasma Munir Keyes MD Work Phone: Start: 05-11-2023 Screening mammography D r. Munir Keyes Work Phone: Start: 11-04-2022 Dual energy X-ray absorptiometry Start: 04-22-2022 Lipid panel [facility] Start: 04-22-2022 Lipid 1996 panel - S lavonne or Plasma Munir Keyes MD Work Phone: Start: 04-22-2022 Mammography Munir Lewis MD Work Phone: Start: 04-09-2021 Mammography Ernst hoyos MD Work Phone: Start: 04-12-2020 Colonoscopy Ernst hoyos MD Work Phone: Plan of Treatment Date Care Activity Detail Author Start: 2032 RSV Vaccine (1 - 1-d ose 75+ series) RSV Vaccine (1 - 1-dose 75+ series) [facility] Start: 08-13-2032 Urine microalbumin profile DTaP,Tdap,Td Vaccine (2 - Td or Tdap) [facility] Start: 07-22-2028 Lipid panel Lipid Screening [facility] Start: 07-23-2027 HPV TESTING HPV TESTING [facility] Start: 07-23-2027 PAP TESTING PAP TESTING [facility] Start: 04-22-2027 Lipid 1996 panel - Serum or Plasma Lipid Screening [facility] Start: 04-22-2027 Lipid panel Lipid Screening [facility] Start: 04-22-2027 LIPID SCREEN LIPID SCREEN [facility] Start: 05-15-2025 Screening for malign ant neoplasm of breast Mammogram Screening [facility] Start: 04-22-2025 DIABETES SCREEN [facility] Start: 04-22-2025 Diabetes Screening Diabetes Screenin g [facility] Start: 04-12-2025 Colonoscopy COLONOSCOPY [facility] Start: 04-12-2025 COLORECTAL CANCER SCREENING COLORECTAL CANCER SCREENING [facility] Start: 04-12-2025 Screening for malign ant neoplasm of colon [facility] Start: 03-18-2025 LIPID SCREEN LIPID SCREEN [facility] Start: 03-12-2025 End: 03-12-2025 Patient encounter procedure 03/12/2025 4:00 PM EST Office Visit OB/Gynecology [address] [place] [address] Ernst Kern MD [address] [place] [address] Annual OB/Gynecology Comment on above: Annual Start: 02-02-2025 End: 02-02-2025 Patient encounter procedure 02/02/2025 3:00 PM EST Office Visit [facility] [address] [place] [address] Munir Keyes MD [address] [place] [address] yearly follow up [facility] [place] Comment on above: yearly follow up Start: 11-16-2024 End: 11-16-2024 Patient encounter procedure 11/16/2024 8:40 AM EDT Office Visit OB/Gynecology [address] [place] [address] Ernst Kern MD [address] [place] [address] Annual OB/Gynecology Comment on above: Annual Start: 11-04-2024 Screening for osteoporosis Bone Density Screening [facility] Start: 10-30-2024 Influenza vaccination Influenza Vacc ine (#1) [facility] Start: 10-02-2024 End: 10-02-2024 Nursing evaluation of patient and report 10/02/2024 8:00 AM EDT Nurse Visit [facility] [address] [place] [address] Nurse, Dc [address] [place] [address] [facility] Comment on above: Prolia Start: 09-04-2024 End: 09-04-2024 Patient encounter procedure 09/04/2024 8:00 AM EDT Office Visit [facility] [address] [place] [address] Munir Keyes MD [address] [place] [address] yearly follow up [facility] [place] Comment on above: yearly follow up Start: 08-22-2024 End: 11-21-2024 25-hydroxyvitamin D3 [Mass/volume] in Serum or Plasma VITAMIN D 25 HYDROXY Lab Routine Osteoporosis, unspecified osteoporosis type, unspecified pathological fracture presence Expected: 08/22/2024, Expires: 11/21/2024 [facility] Comment on above: Expected: 08/22/2024 , Expires: 11/21/2024 Start: 08-22-2024 End: 11-21-2024 CBC W Auto Differential panel - Blood COMPLETE BLOOD COUNT AND DIFFERENTIAL Lab Routine Osteoporosis, unspecified osteoporosis type, unspecified pathological fracture presence Dyslipidemia Expected: 08/22/2024, Expires: 11/21/2024 [facility] Work Phone: Comment on above: Expected: 08/22/2024 , Expires: 11/21/2024 Start: 08-22-2024 End: 11-21-2024 Comprehensive metabolic 2000 panel - Serum or Plasma COMPREHENSIVE METABOLIC PANEL Lab Routine Osteoporosis, unspecified osteoporosis type, unspecified pathological fracture presence Expected: 08/22/2024, Expires: 11/21/2024 [facility] Comment on above: Expected: 08/22/2024 , Expires: 11/21/2024 Start: 08-22-2024 End: 11-21-2024 LIPID PANEL, NONFASTING LIPID PANEL, NONFASTING Lab Routine Osteoporosis, unspecified osteoporosis type, unspecified pathological fracture presence Screening for lipid disorders Menopausal symptoms Hyperlipidemia, unspecified hyperlipidemia type Expected: 08/22/2024, Expires: 11/21/2024 [facility] Comment on above: Expected: 08/22/2024 , Expires: 11/21/2024 Start: 08-19-2024 Anxiety Screening Anxiety Screening [facility] Start: 08-19-2024 Covid-19 Vaccine () Covid-19 Vaccine () [facility] Comment on above: Postponed from 10/30 (Declined at this time) Start: 08-19-2024 Depression Screening Depression Scre ening [facility] Start: 08-19-2024 RSV Vaccine (1 - 1-d ose 60+ series) RSV Vaccine (1 - 1-dose 60+ series) [facility] Comment on above: Postponed from 08/18 (Declined at this time) Start: 05-10-2024 Screening for malign ant neoplasm of breast Mammogram Screening [facility] Start: 03-01-2024 Advance Directive Discussion Advance Directive Discussion [facility] Start: 12-30-2023 End: 03-30-2024 C reactive protein [Mass/volume] in Serum or Plasma C-REACTIVE PROTEIN Lab Routine Dry mouth Dry eyes Expected: 12/30/2023, Expires: 03/30/2024 [facility] Comment on above: Expected: 12/30/2023 , Expires: 03/30/2024 Start: 12-30-2023 End: 03-30-2024 Nuclear Ab [Presence] in Serum by Immunoassay CAMILLE BLOOD Lab Routine Dry mouth Dry eyes Expected: 12/30/2023, Expires: 03/30/2024 [facility] Comment on above: Expected: 12/30/2023 , Expires: 03/30/2024 Start: 12-30-2023 End: 03-30-2024 SJOGREN ABS SSA/SSB SJOGREN ABS SSA/SSB Lab Routine Dry mouth Dry eyes Expected: 12/30/2023, Expires: 03/30/2024 [facility] Comment on above: Expected: 12/30/2023 , Expires: 03/30/2024 Start: 12-30-2023 End: 03-30-2024 Sjogrens syndrome-A extractable nuclear Ab [Units/volume] in Serum ANTI SSA BLD Lab Routine Dry mouth Dry eyes Expected: 12/30/2023, Expires: 03/30/2024 [facility] Work Phone: Comment on above: Expected: 12/30/2023 , Expires: 03/30/2024 Start: 12-15-2023 End: 12-15-2023 Patient encounter procedure 12/15/2023 2:20 PM EDT Office Visit OB/Gynecology [address] [place] [id number] Ernst Kern MD [address] [place] [id number] ANNUAL OB/Gynecology Comment on above: ANNUAL Start: 11-24-2023 End: 11-24-2023 Patient encounter procedure 11/24/2023 1:30 PM EDT Office Visit [facility] [place] [address] [place] [address] Beau Eid V, DO [address] [place] [address] Right hip pain [facility] Comment on above: Right hip pain Start: 11-04-2023 End: 11-04-2023 Patient encounter procedure 11/04/2023 1:40 PM EDT Office Visit OB/Gynecology [address] [place] [address] Ernst Kern MD [address] [place] [address] ANNUAL OB/Gynecology Comment on above: ANNUAL Start: 10-31-2023 Covid-19 Vaccine ( season) Covid-19 Vaccine ( season) [facility] Start: 10-31-2023 Covid-19 Vaccine ( season) Covid-19 Vaccine ( season) [facility] Start: 10-31-2023 Influenza vaccination Influenza Vacc ine (#1) [facility] Start: 10-21-2023 Pneumococcal Vaccine : 50+ (2 of 2 - PCV) Pneumococcal Vaccine: 50+ (2 of 2 - PCV) [facility] Start: 10-21-2023 Pneumococcal Vaccine : 65+ (2 of 2 - PCV) Pneumococcal Vaccine: 65+ (2 of 2 - PCV) [facility] Start: 08-20-2023 End: 08-20-2023 Patient encounter procedure 08/20/2023 9:20 AM EDT Office Visit [facility] [address] [facility] [place] [address] Munir Keyes MD [address] [place] [address] med check Family [facility] [place] Comment on above: med check Start: 07-02-2023 End: 10-01-2023 25-hydroxyvitamin D3 [Mass/volume] in Serum or Plasma VITAMIN D 25 HYDROXY Lab Routine Osteoporosis, unspecified osteoporosis type, unspecified pathological fracture presence Fatigue, unspecified type Medication monitoring encounter Expected: 07/02/2023, Expires: 10/01/2023 [facility] [place] Comment on above: Expected: 07/02/2023 , Expires: 10/01/2023 Start: 07-02-2023 End: 10-01-2023 CBC W Auto Differential panel - Blood COMPLETE BLOOD COUNT AND DIFFERENTIAL Lab Routine Fatigue, unspecified type Expected: 07/02/2023, Expires: 10/01/2023 [facility] Work Phone: Comment on above: Expected: 07/02/2023 , Expires: 10/01/2023 Start: 07-02-2023 End: 10-01-2023 Cobalamin (Vitamin B12) [Mass/volume] in Serum or Plasma VITAMIN B12 Lab Routine Fatigue, unspecified type Medication monitoring encounter Expected: 07/02/2023, Expires: 10/01/2023 [facility] [place] Comment on above: Expected: 07/02/2023 , Expires: 10/01/2023 Start: 07-02-2023 End: 10-01-2023 Comprehensive metabolic 2000 panel - Serum or Plasma COMPREHENSIVE METABOLIC PANEL Lab Routine Fatigue, unspecified type Expected: 07/02/2023, Expires: 10/01/2023 [facility] [place] Comment on above: Expected: 07/02/2023 , Expires: 10/01/2023 Start: 07-02-2023 End: 10-01-2023 Lipid 1996 panel - Serum or Plasma LIPID PANEL BASIC Lab Routine Elevated LDL cholesterol level Expected: 07/02/2023, Expires: 10/01/2023 [facility] [place] Comment on above: Expected: 07/02/2023 , Expires: 10/01/2023 Start: 07-02-2023 End: 10-01-2023 Magnesium [Mass/volume] in Serum or Plasma MAGNESIUM Lab Routine Fatigue, unspecified type Medication monitoring encounter Expected: 07/02/2023, Expires: 10/01/2023 [facility] [place] Comment on above: Expected: 07/02/2023 , Expires: 10/01/2023 Start: 07-02-2023 End: 10-01-2023 Thyrotropin [Units/volume] in Serum or Plasma THYROID STIMULATING HORMONE Lab Routine Fatigue, unspecified type Expected: 07/02/2023, Expires: 10/01/2023 [facility] [place] Comment on above: Expected: 07/02/2023 , Expires: 10/01/2023 Start: 06-21-2023 HPV TESTING HPV TESTING [facility] [place] Start: 06-21-2023 PAP TESTING PAP TESTING [facility] [place] Start: 04-22-2023 Mammography [facility] [place] Start: 04-22-2023 Screening for malign ant neoplasm of breast Mammogram Screening [facility] [place] Start: 03-01-2023 Advance Directive Discussion Advance Directive Discussion [facility] [place] Start: 03-01-2023 Behavioral Health Screening Behavioral Health Screening [facility] [place] Start: 03-01-2023 Depression Assessment Depression Ass essment [facility] [place] Start: 10-30-2022 Covid-19 Vaccine (2022- season) Covid-19 Vaccine () [facility] [place] Start: 10-30-2022 Influenza vaccination [facility] [place] Start: 2022 ADVANCE DIRECTIVE DISCUSSION ADVANCE DIRECTIVE DISCUSSION [facility] [place] Start: 2022 BONE DENSITY BONE DENSITY [facility] [place] Start: 2022 COVID-19 VACCINE (6 - Moderna series) COVID-19 VACCINE (6 - Moderna series) [facility] [place] Start: 2022 Pneumococcal Vaccine : 65+ (2 - PCV) Pneumococcal Vaccine: 65+ (2 - PCV) [facility] [place] Start: 2022 Pneumococcal Vaccine : 65+ (2 of 2 - PCV) Pneumococcal Vaccine: 65+ (2 of 2 - PCV) [facility] [place] Start: 2022 PNEUMOCOCCAL: 65+ (2 - PCV) PNEUMOCOCCAL: 65+ (2 - PCV) [facility] [place] Start: 08-13-2022 End: 10-13-2022 Hepatitis B virus surface Ab [Presence] in Serum HEP B SURF AB Lab Routine Screening for viral disease Expected: 08/13/2022, Expires: 10/13/2022 [facility] Work Phone: Comment on above: Expected: 08/13/2022 , Expires: 10/13/2022 Start: 08-13-2022 End: 10-13-2022 MUMPS IGG AB MUMPS IGG AB Lab Routine Screening for viral disease Expected: 08/13/2022, Expires: 10/13/2022 [facility] Work Phone: Comment on above: Expected: 08/13/2022 , Expires: 10/13/2022 Start: 08-13-2022 End: 10-13-2022 RUBELLA IGG AB RUBELLA IGG AB Lab Routine Screening for viral disease Expected: 08/13/2022, Expires: 10/13/2022 [facility] Work Phone: Comment on above: Expected: 08/13/2022 , Expires: 10/13/2022 Start: 08-13-2022 End: 10-13-2022 RUBEOLA (MEASLES)IGG RUBEOLA (MEASLES)IGG Lab Routine Screening for viral disease Expected: 08/13/2022, Expires: 10/13/2022 [facility] Work Phone: Comment on above: Expected: 08/13/2022 , Expires: 10/13/2022 Start: 07-30-2022 Medicare Annual Wellness Visit Medicare Annual Wellness Visit [facility] [place] Start: 05-03-2022 DIABETES SCREEN DIABETES SCREEN [facility] Start: 04-14-2022 End: 06-14-2022 Thyrotropin [Units/volume] in Serum or Plasma TSH BLD Lab Routine Fatigue, unspecified type Expected: 04/14/2022, Expires: 06/14/2022 [facility] Work Phone: Comment on above: Expected: 04/14/2022 , Expires: 06/14/2022 Start: 04-14-2022 End: 06-14-2022 Thyroxine (T4) free [Mass/volume] in Serum or Plasma T4 FREE/FREE THYROX Lab Routine Fatigue, unspecified type Expected: 04/14/2022, Expires: 06/14/2022 [facility] Work Phone: Comment on above: Expected: 04/14/2022 , Expires: 06/14/2022 Start: 04-09-2022 Mammography MAMMOGRAM [facility] [place] Start: 03-01-2022 DEPRESSION ASSESSMENT DEPRESSION ASS ESSMENT [facility] [place] Start: 10-30-2021 Influenza vaccination INFLUENZA (#1) [facility] [place] Start: 11-17-2020 PNEUMOCOCCAL: 65+ (2 - PCV) PNEUMOCOCCAL: 65+ (2 - PCV) [facility] [place] Start: 05-27-2020 COVID-19 VACCINE (3 - Booster for Moderna series) COVID-19 VACCINE (3 - Booster for Moderna series) [facility] [place] Start: 2017 RSV Vaccine (1 - 1-d ose 60+ series) RSV Vaccine (1 - 1-dose 60+ series) [facility] [place] Start: 10-22-2014 Urine microalbumin profile [facility] [place] Start: 08-19-2007 SHINGRIX VACCINE (1 of 2) SHINGRIX VACCINE (1 of 2) [facility] [place] Start: 03-02-2007 Urine microalbumin profile DTAP,TDAP,TD (1 - Tdap) [facility] [place] Start: 2002 COLOGUARD (FIT-DNA) COLOGUARD (FIT-D NA) [facility] [place] Start: [address] COLONOGRAPHY [facility] Start: 2002 FECAL OCCULT BLOOD FECAL OCCULT BLOO D [facility] [place] Start: 2002 Screening for malign ant neoplasm of colon [facility] [place] Start: 2002 SIGMOIDOSCOPY SIGMOIDOSCOPY [facility] Start: 08-19-1975 HIV SCREENING HIV SCREENING [facility] End: 09-12-2023 DXA-AXIAL SKELETON DXA-AXIAL SKELETON Radiology Routine Post-menopausal 1 Occurrences starting 08/13/2022 until 09/12/2023 [facility] Work Phone: Comment on above: 1 Occurrences starti ng 08/13/2022 until 09/12/2023 End: 08-14-2023 ECG COMPLETE ECG COMPLETE ECG Routine SOB (shortness of breath) 1 Occurrences starting 08/13/2022 until 08/14/2023 [facility] Work Phone: Comment on above: 1 Occurrences starti ng 08/13/2022 until 08/14/2023 End: 08-13-2023 HOME SLEEP APNEA TEST (HSAT) HOME SLEEP APNEA TEST (HSAT) Procedures Routine WILSON (obstructive sleep apnea) 1 Occurrences starting 08/13/2022 until 08/13/2023 [facility] Work Phone: Comment on above: 1 Occurrences starti ng 08/13/2022 until 08/13/2023 End: 01-27-2024 HOME SLEEP APNEA TEST (HSAT) HOME SLEEP APNEA TEST (HSAT) Procedures Routine WILSON (obstructive sleep apnea) 1 Occurrences starting 01/27/2023 until 01/27/2024 [facility] Work Phone: Comment on above: 1 Occurrences starti ng 01/27/2023 until 01/27/2024 End: 08-19-2024 HOME SLEEP APNEA TEST (HSAT) HOME SLEEP APNEA TEST (HSAT) Procedures Routine WILSON (obstructive sleep apnea) 1 Occurrences starting 08/20/2023 until 08/19/2024 [facility] Work Phone: Comment on above: 1 Occurrences starti ng 08/20/2023 until 08/19/2024 End: 08-14-2023 STRESS ECHO TREADMILL STRESS ECHO TREADMILL Cardiology Routine SOB (shortness of breath) 1 Occurrences starting 08/13/2022 until 08/14/2023 [facility] Work Phone: Comment on above: 1 Occurrences starti ng 08/13/2022 until 08/14/2023 End: 12-15-2024 XR Pelvis and Hip - right AP and Lateral frog XR HIP GENERAL 3V PELV/AP/LAT RIGHT Radiology Routine Pain in right hip 1 Occurrences starting 11/16/2023 until 12/15/2024 [facility] Work Phone: Comment on above: 1 Occurrences starti ng 11/16/2023 until 12/15/2024 XR Pelvis and Hip - right AP and Lateral frog XR HIP GENERAL 3V PELV/AP/LAT RIGHT Radiology Routine Pain in right hip 11/24/2023 12:59 PM EDT [facility] Work Phone: [facility] Immunizations Immunization Date Immunization Notes Care Provider [facility] 12-29-2023 influenza, seasonal, injectable, preservative free Dr. Munir Keyes MD Work Phone: [facility] 12-29-2023 influenza virus vacc ine, unspecified formulation Munir Keyes MD Work Phone: [facility] [place] 11-26-2022 influenza, injectabl e, quadrivalent, preservative free Dr. Munir Keyes Work Phone: [facility] 11-26-2022 influenza virus vacc ine, unspecified formulation Munir Keyes MD Work Phone: [facility] [place] 10-20-2022 pneumococcal polysaccharide vaccine, 23 valent Munir Keyes MD Work Phone: [facility] [place] 10-13-2022 hepatitis A and hepatitis B vaccine Munir Keyes MD Work Phone: [facility] [place] 09-12-2022 hepatitis A and hepatitis B vaccine Munir Keyes MD Work Phone: [facility] [place] 08-31-2022 hepatitis A and hepatitis B vaccine Munir Keyes MD Work Phone: [facility] [place] 08-22-2022 typhoid vaccine, kati e, oral Munir Keyes MD Work Phone: [facility] [place] 08-13-2022 tetanus toxoid, redu jim diphtheria toxoid, and acellular pertussis vaccine, adsorbed Munir Keyes MD Work Phone: [facility] [place] 12-01-2021 influenza, injectabl e, quadrivalent, preservative free [facility] 12-01-2021 influenza, seasonal, injectable Munir Keyes MD Work Phone: [facility] [place] 12-01-2021 influenza virus vacc ine, unspecified formulation Munir Keyes MD Work Phone: [facility] [place] 11-14-2021 Covid Moderna Bivale nt Booster [facility] 01-01-2021 COVID-19 original vaccine, full dose, monovalent (MODERNA) Munir Keyes MD Work Phone: [facility] [place] 11-07-2020 Influenza, injectabl e, Madin Conowingo Canine Kidney, preservative free, quadrivalent Munir Keyes MD Work Phone: [facility] [place] 04-01-2020 COVID-19 original vaccine, full dose, monovalent (MODERNA) Munir Keyes MD Work Phone: [facility] [place] 03-04-2020 COVID-19 original vaccine, full dose, monovalent (MODERNA) Ernst Kern MD Work Phone: [facility] [place] 12-06-2019 influenza, injectabl e, quadrivalent, preservative free [facility] 12-06-2019 influenza, seasonal, injectable [facility] 11-18-2019 pneumococcal polysaccharide vaccine, 23 valent Munir Keyes MD Work Phone: [facility] [place] 12-20-2018 influenza, injectabl e, quadrivalent, preservative free [facility] 12-20-2018 influenza, seasonal, injectable [facility] 12-13-2018 influenza virus vacc ine, unspecified formulation Munir Keyes MD Work Phone: [facility] [place] 03-06-2018 zoster vaccine recombinant Munir Keyes MD Work Phone: [facility] [place] 12-13-2017 influenza, injectabl e, quadrivalent, preservative free [facility] 12-13-2017 influenza, seasonal, injectable [facility] 09-16-2017 zoster vaccine recombinant Munir Keyes MD Work Phone: [facility] [place] 12-14-2016 influenza, injectabl e, quadrivalent, preservative free [facility] 12-14-2016 influenza, seasonal, injectable [facility] 12-16-2015 influenza, injectabl e, quadrivalent, preservative free [facility] 12-16-2015 influenza, seasonal, injectable [facility] 10-22-2015 zoster vaccine, live Munir Keyes MD Work Phone: [facility] [place] 11-29-2014 influenza, injectabl e, quadrivalent, preservative free [facility] 11-29-2014 influenza, seasonal, injectable [facility] 10-21-2014 tetanus and diphther ia toxoids, adsorbed, preservative free, for adult use (2 Lf of tetanus toxoid and 2 Lf of diphtheria toxoid) [facility] 10-21-2014 tetanus and diphther ia toxoids, adsorbed, preservative free, for adult use (5 Lf of tetanus toxoid and 2 Lf of diphtheria toxoid) Munir Keyes MD Work Phone: [facility] [place] 11-28-2013 influenza, injectabl e, quadrivalent, preservative free [facility] 11-28-2013 influenza, seasonal, injectable [facility] 10-30-2010 influenza virus vacc ine, unspecified formulation Ernst Kern MD Work Phone: [facility] [place] 12-24-2008 novel influenza-H1N1 -09, preservative-free, injectable Munir Keyes MD Work Phone: [facility] [place] 03-01-2007 tetanus and diphther ia toxoids, adsorbed, preservative free, for adult use (2 Lf of tetanus toxoid and 2 Lf of diphtheria toxoid) Ernst Kern MD Work Phone: [facility] [place] Payers Date Payer Category Payer Self-pay [id number] 2022 [facility] DICARE SUPPLEMENT [id number] 2022 Medicare [id number] 2022 Medicare [id number] 2022 Unknown [id number] 2022 Unknown [id number] 2015 Unknown [facility] [id number] Medicare [facility] MEDICARE SENIOR YAIR [id number] Unknown [id number] Unknown [id number] Unknown [id number] Unknown [id number] Unknown [id number] Social History Date Type Detail Facility Start: 04-13-2012 End: 07-22-2022 Tobacco smoking status NHIS Never smoked tobacco [facility] [place] Start: 04-13-2012 End: 07-22-2022 Tobacco use and exposure Smokeless tobacco non-user [facility] [place] Start: 12-23-2020 End: 11-24-2023 Alcohol intake Current drinker of alcohol (finding) [facility] [place] Start: 1955 Sex Assigned At Not on file [facility] [place] Start: 10-21-2014 Tobacco smoking stat us MTIS Unknown if ever smoked [facility] Start: 1955 Sex Assigned At Female [facility] Start: 07-22-2022 End: 08-13-2022 [facility] of [facility] function [facility] Work [facility]: Start: 07-22-2022 End: 08-13-2022 Tobacco use panel [facility] [place] Work Phone: Adult Depression Scr eening Assessment 0 [facility] [place] Work Phone: Has the [employer], [employer], [employer], or water [employer] threatened to shut off services in your home in past 12Mo No [facility] [place] Do you belong to any clubs or organizations such as yarsani groups, unions, fraternal or athletic groups, or school groups? Yes [facility] [place] Are you now , , , , never or living with a partner? [facility] How often to you hav e a drink containing alcohol? 2-3 time sa week [facility] [place] How many standard dr inks containing alcohol do you have on a typical day? 1 or 2 [facility] [place] How often do you hav e 6 or more drinks on 1 occasion? Never [facility] [place] Do you feel stress - tense, restless, nervous, or anxious, or unable to sleep at night because your mind is troubled all the time - these days [OSQ] Not at all [facility] [place] (I/We) worried rudy er (my/our) food would run out before (I/we) got money to buy more. Never true [facility] [place] Start: 05-22-2024 Sex Female (finding) Carlos r [facility] Medical Equipment Procedure Code Equipment Code Equipment Origin al Text Equipment Identifier Dates [id number] Implant - [id number] Start: 02-07-2014 Comment on above: Description: Upholf Lite with capio slim [id number] SLING UPHOLD VAG SUPPORT SYS Sling Suburethra l Gyncr Tvt - [id number] Start: 02-13-2014 Functional Status Date Assessment Result Facility 07-11-2014 Are you deaf, or do you have serious difficulty hearing No 07/11/2014 2:28 PM Peggy Alexander Ma No [facility] [place] 07-11-2014 Are you blind, or do you have serious difficulty seeing, even when wearing glasses No 07/11/2014 2:28 PM Peggy Alexander Ma No [facility] [place] 07-11-2014 Do you have serious difficulty walking or climbing stairs No 07/11/2014 2:28 PM Peggy Alexander Ma No [facility] [place] 07-11-2014 Do you have difficul ty dressing or bathing No 07/11/2014 2:28 PM Peggy Alexander Ma No [facility] [place] 07-11-2014 Because of a physica l, mental, or emotional condition, do you have difficulty doing errands alone such as visiting a physician's office or shopping No 07/11/2014 2:28 PM EDT Aman Gordon Peggy No [facility] [place] Mental Status Date Assessment Result Facility 07-11-2014 Because of a physica l, mental, or emotional condition, do you have serious difficulty concentrating, remembering, or making decisions No 07/11/2014 2:28 PM EDT Aman Gordon Peggy Nilda [facility] [place] Clinical Notes 07-04-2014 to 09-05-2024 Telephone Encounter - Hina Franklin MA - 09/05/2024 10:00 AM EDTTelephone Encounter - Hina Franklin MA - 09/05/2024 10:00 AM EDTTelephone Encounter - Ana M Doll MA - 08/22/2024 2:30 PM EDT Note Date & Type Note Facility 09-05-2024 Telephone encounter Note See [employer] message. Hina Franklin MA [facility] [place] 09-05-2024 Miscellaneous Notes See [employer] message. Hina Franklin MA documented in this encounter [facility] 08-22-2024 Telephone encounter Note Labs are ordered. However, patient has not been seen in over a year, these should not have been ordered. She will need to reschedule. [facility] 08-22-2024 Miscellaneous Notes Labs are ordered. However, patient has not been seen in over a year, these should not have been ordered. She will need to reschedule. Please advise if due for labs documented in this encounter [facility] 08-22-2024 Telephone encounter Note Please advise if due for labs [facility] 04-24-2024 Telephone encounter Note Mammogram order signed by and faxed to [facility]. Marita Pate RN [facility] 04-24-2024 Miscellaneous Notes Mammogram order signed by and faxed to [facility]. Marita Pate RN documented in this encounter [facility] 04-24-2024 Telephone encounter Note Images from the original note were not included. Electronic PA rec'd and completed. This was approved. Pharmacy notified. Prior authorization approved Payer: [employer] Note from payer: Approved. This drug has been approved under the Member's Medicare Part D benefit. Approved quantity: 15 units per 30 day(s). You may fill up to a 90 day supply except for those on Specialty Tier 5, which can be filled up to a 30 day supply. Please call the pharmacy to process the prescription claim. Approval Details Authorized from April 10, 2024 to February 28, 2099 Electronic appeal: Not supported View History Notes Time User Attachment Attachment received from payer. 04/24/2024 2:28 PM Cchs, Rx Priorauth In Document Pharmacy Benefits Open Encounter RIVERAHANANE T 2024 [employer] Enhanced PDP Retail Super ID ([employer]) Covered: Retail, Mail Order Unknown: Specialty, Long-Term Care BIN: [id number] : 1955 Group ID: [id number] PCN: [id number] Legal sex: F Group name: [id number] Address: [address] [facility], [place] [id number] Medication Being Authorized scopolamine (TRANSDERM-SCOP) patch 1.5 mg/72 hr (delivers 1 mg over 3 days) Apply 1 Patch as directed as directed. BEHIND THE EAR AT LEAST 4 HOURS PRIOR TO EXPOSURE AND EVERY 3 DAYS NEEDED. Dispense: 15 Patch Refills: 0 Start: 04/24/2024 End: 06/08/2024 Class: Normal Diagnoses: Motion sickness, subsequent encounter This order has been released to its destination. To be filled at: [facility] [id number] - [place] [address] - [address] - [phone] And pt via my chart. [facility] 04-24-2024 Miscellaneous Notes Images from the original note were not included. Electronic PA rec'd and completed. This was approved. Pharmacy notified. Prior authorization approved Payer: Community [facility] Note from payer: Approved. This drug has been approved under the Member's Medicare Part D benefit. Approved quantity: 15 units per 30 day(s). You may fill up to a 90 day supply except for those on Specialty Tier 5, which can be filled up to a 30 day supply. Please call the pharmacy to process the prescription claim. Approval Details Authorized from April 10, 2024 to February 28, 2099 Electronic appeal: Not supported View History Notes Time User Attachment Attachment received from payer. 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 BEHIND THE EAR AT LEAST 4 HOURS PRIOR TO EXPOSURE AND EVERY 3 DAYS NEEDED. Dispense: 15 Patch Refills: 0 Start: 04/24/2024 End: 06/08/2024 Class: Normal Diagnoses: Motion sickness, subsequent encounter This order has been released to its destination. To be filled at: [facility] [address] [place] [address] [address] - [phone] And pt via my chart. documented in this encounter [facility] [place] 04-24-2024 Telephone encounter Note see Six Degrees of Data message. Hina Franklin MA [facility] 04-24-2024 Miscellaneous Notes see Six Degrees of Data message. Hina Franklin MA documented in this encounter [facility] 04-04-2024 Note HNO ID: [id number] Author: PEGGY VERNON LPN Service: ? Author Type: LICENSED NURSE Type: Progress Notes Filed: 04/04/2024 08:34 Note Text: Patient presents for Prolia injection. Denies any problems at this time. Patient instructed on any SE of medication, verbalized understanding and agreed to proceed with treatment. Tolerated injection well. Peggy Vrenon LPN [facility] 04-04-2024 History of Present illness Narrative Patient presents for Prolia injection. Denies any problems at this time. Patient instructed on any SE of medication, verbalized understanding and agreed to proceed with treatment. Tolerated injection well. Peggy Vernon LPN documented in this encounter [facility] [place] 03-06-2024 Telephone encounter Note Medication is being ordered from pharmacy. Will let her know when it is delivered. [facility] 03-06-2024 Miscellaneous Notes Medication is being ordered from pharmacy. Will let her know when it is delivered. We already ordered in house, see chart Patient notified of results, verbalizes understanding of instructions. Pt will wait for phone call from office to schedule appt. After med has been received. Rama Hutchins LPN Labs are ok. Ok to stop fosamax and begin prolia every six months. Was ordered. Will need appt to do. Stay on calcium and d View External Labs - BMP, Vit D [ID [id number]] documented in this encounter [facility] [place] 03-06-2024 Telephone encounter Note We already ordered in house, see chart [facility] 03-06-2024 Telephone encounter Note Patient notified of results, verbalizes understanding of instructions. Pt will wait for phone call from office to schedule appt. After med has been received. Rama Hutchins LPN [facility] 03-06-2024 Telephone encounter Note Labs are ok. Ok to stop fosamax and begin prolia every six months. Was ordered. Will need appt to do. Stay on calcium and d [facility] 03-06-2024 Telephone encounter Note View External Labs - BMP, Vit D [ID [id number]] [facility] 12-30-2023 Telephone encounter Note Labs printed for dry eye and dry mouth symptoms Griffin Cook DO [facility] 12-30-2023 Miscellaneous Notes Labs printed for dry eye and dry mouth symptoms Griffin Cook DO documented in this encounter [facility] 11-24-2023 Note HNO ID: [id number] Author: BEAU EID DO Service: ? Author Type: Physician Type: Progress Notes Filed: 11/24/2023 13:52 Note Text: SERVICE DATE: November 24, 2023 PCP: Munir Keyes MD Subjective Patient ID: Hanane is a 68 year old female. Chief Complaint: Patient presents with: Right Hip Pain PAIN EVALUATION 11/23/2023 1745 Pain Level: 2 Pain Location: Hip-Right Description: Aching;Dull Duration Amount of Time: 9 Duration Units: Hours Frequency: Intermittent Intervention/Comfort measure: Reposition HPI Patient presents today with right lateral and posterior hip pain. She said the pain has been off and on for a couple of years. Pain seems to be worse at night and in the morning when she first wakes up and then improves slightly as the day goes on. No significant injury mechanism associated with onset of pain. TREATMENTS PRIOR TO INITIAL CONSULT: Review of Systems ACTIVE PROBLEM LIST MASS IN BREAST Uterovaginal Prolapse, Incomplete Pelvic Pressure in Female Vaginal Atrophy Menopausal Symptoms Pelvic Muscle Wasting Osteoporosis PAST MEDICAL HISTORY Diagnosis Date Cystocele Diverticulosis of colon (without mention of hemorrhage) Hemorrhage of rectum and anus Hx of fracture of arm right forearm Osteoporosis Pure hypercholesterolemia hdl is 102 in 2017 [...] Never Smokeless tobacco: Never Vaping Use Vaping status: Never Used Substance Use Topics Alcohol use: Yes Comment: Seldom Drug use: No ALLERGIES No Known Allergies MEDICATIONS: Cholecalciferol, Vitamin D3, (VITAMIN D-3) 50 mcg (2,000 unit) cap Take 2,000 capsules by mouth once daily. VITAMIN K2 ORAL Take by mouth. alendronate (FOSAMAX) 70 mg tablet Take 1 tablet by mouth one time a week. Take with a full glass of water, on an empty stomach; do NOT lie down for 30minutes. MAGNESIUM ORAL Take by mouth. vit B12/intrinsic fact/folate (INTRINSI N38-AUHGLR ORAL) Take by mouth. CYANOCOBALAMIN, VITAMIN B-12, (VITAMIN B-12 ORAL) Take 300 mg by mouth once daily. Combo with Folate 400 mg CALTRATE-600 PLUS VITAMIN D3 600 MG-200 UNIT TAB Take one(1) tablet two(2) times daily. meloxicam (MOBIC) 15 mg tablet Take 1 tablet by mouth once daily. Miscellaneous Medical Supply 1 Each as directed. Oral/Dental Appliance for Sleep Apnea krill oil 500 mg cap Take 1 capsule by mouth once daily. Allergies, medications, past surgical history, family history and past medical history were reviewed per this encounter. Objective Ortho Exam 68-year-old female pleasant cooperative exam in no acute distress. External examination shows no significant leg length discrepancy. There is normal range of motion in the hip with flexion abduction external rotation and internal rotation. There is tenderness with palpation of the posterior muscle group abductor and external rotators, as well as over the sacroiliac joint on the right side. Assessment/Plan ASSESSMENT Diagnosis (M53.3) Sacroiliac joint dysfunction (primary encounter diagnosis) No orders found for this visit on 11/24/23. PLAN Discussed hip debilitation program with handout given Meloxicam 1 p.o. at bedtime Percy potential cortisone injection in the future to the SI joint if necessary but would put that off at this time due to patient's underlying diagnosis of osteoporosis. Discussed considering Prolia over Fosamax treatment of osteoporosis FOLLOW-UP: No follow-ups on file. SIGNATURE: Beau Eid DO PATIENT NAME: Hanane Rivera DATE: November 24, 2023 TIME: 1:[address] [facility] 11-24-2023 History of Present illness Narrative Images from the original note were not included. SERVICE DATE: November 24, 2023 PCP: Munir Keyes MD Subjective Patient ID: Hanane is a 68 year old female. Chief Complaint: Patient presents with: Right Hip Pain PAIN EVALUATION 11/23/2023 1745 Pain Level: 2 Pain Location: Hip-Right Description: Aching;Dull Duration Amount of Time: 9 Duration Units: Hours Frequency: Intermittent Intervention/Comfort measure: Reposition HPI Patient presents today with right lateral and posterior hip pain. She said the pain has been off and on for a couple of years. Pain seems to be worse at night and in the morning when she first wakes up and then improves slightly as the day goes on. No significant injury mechanism associated with onset of pain. TREATMENTS PRIOR TO INITIAL CONSULT: Review of Systems ACTIVE PROBLEM LIST MASS IN BREAST Uterovaginal Prolapse, Incomplete Pelvic Pressure in Female Vaginal Atrophy Menopausal Symptoms Pelvic Muscle Wasting Osteoporosis PAST MEDICAL HISTORY Diagnosis Date Cystocele Diverticulosis of colon (without mention of hemorrhage) Hemorrhage of rectum and anus Hx of fracture of arm right forearm Osteoporosis Pure hypercholesterolemia hdl is 102 in 2017 Rectocele Unspecified closed fracture of ankle Ankle fracture Unspecified hemorrhoids without mention of complication Uterine prolapse PAST SURGICAL HISTORY Procedure Laterality Date APPENDECTOMY COLONOSCOPY FLX DX W/COLLJ SPEC WHEN PFRMD 01/09/05 COLONOSCOPY FLX DX W/COLLJ SPEC WHEN PFRMD 6-8-15 LIGJ DIVJ &/EXCJ VARICOSE VEIN CLUSTER 1 [...] Never Smokeless tobacco: Never Vaping Use Vaping status: Never Used Substance Use Topics Alcohol use: Yes Comment: Seldom Drug use: No ALLERGIES No Known Allergies MEDICATIONS: Cholecalciferol, Vitamin D3, (VITAMIN D-3) 50 mcg (2,000 unit) cap Take 2,000 capsules by mouth once daily. VITAMIN K2 ORAL Take by mouth. alendronate (FOSAMAX) 70 mg tablet Take 1 tablet by mouth one time a week. Take with a full glass of water, on an empty stomach; do NOT lie down for 30minutes. MAGNESIUM ORAL Take by mouth. vit B12/intrinsic fact/folate (INTRINSI [id number] ORAL) Take by mouth. CYANOCOBALAMIN, VITAMIN B-12, (VITAMIN B-12 ORAL) Take 300 mg by mouth once daily. Combo with Folate 400 mg CALTRATE-600 PLUS VITAMIN D3 600 MG-200 UNIT TAB Take one(1) tablet two(2) times daily. meloxicam (MOBIC) 15 mg tablet Take 1 tablet by mouth once daily. Miscellaneous Medical Supply 1 Each as directed. Oral/Dental Appliance for Sleep Apnea krill oil 500 mg cap Take 1 capsule by mouth once daily. Allergies, medications, past surgical history, family history and past medical history were reviewed per this encounter. Objective Ortho Exam 68-year-old female formerly [facility] exam in no acute distress. External examination shows no significant leg length discrepancy. There is normal range of motion in the hip with flexion abduction external rotation and internal rotation. There is tenderness with palpation of the posterior muscle group abductor and external rotators, as well as over the sacroiliac joint on the right side. Assessment/Plan ASSESSMENT Diagnosis (M53.3) Sacroiliac joint dysfunction (primary encounter diagnosis) No orders found for this visit on 11/24/23. PLAN Discussed hip debilitation program with handout given Meloxicam 1 p.o. at bedtime Percy potential cortisone injection in the future to the SI joint if necessary but would put that off at this time due to patient's underlying diagnosis of osteoporosis. Discussed considering Prolia over Fosamax treatment of osteoporosis FOLLOW-UP: No follow-ups on file. SIGNATURE: Beau Eid DO PATIENT NAME: Hanane Rivera DATE: November 24, 2023 TIME: 1:50 PM AMB ROOMING INTAKE FLOWSHEET DATA Pain Pain Level: 2 Pain Location: Hip-Right Description: Aching, Dull Duration Amount of Time: 9 Duration Units: Hours Frequency: Intermittent Intervention/Comfort measure: Reposition Patient here today for right hip pain. documented in this encounter [facility] 11-24-2023 History of Present illness Narrative Radiology Service Progress Note PATIENT NAME: Hanane Rivera DATE OF SERVICE: November 24, 2023 TIME: 3:23 PM PATIENT IDENTITY VERIFICATION COMPLETED USING TWO (2) IDENTIFIERS: Name and Date of confirmed by patient verbally. FALL SCREENING: Has the patient had 2 falls in the last year or 1 fall with injury or currently using an Ambulatory Assistive Device (Walker, Cane, Wheelchair, Crutches, etc.)? No PATIENT GENDER DATA: Female. status: : No status: NO. PATIENT RELEVANT IMPLANT DATA REVIEWED: Not Applicable PATIENT PRESENTS WITH AN IMPLANTABLE OR ATTACHED BINGO FLOATER: No RADIOLOGY DEPARTMENT: General X-ray: Exam(s) Completed: Pelvis X-Ray: Pelvis with Hip Right PERIPHERAL IV DATA: Not applicable SIGNED BY: RT Demetris(Clair) November 24, 2023 3:23 PM documented in this encounter [facility] 11-24-2023 Note HNO ID: [id number] Author: KATHY COLLADO RT(Clair) Service: ? Author Type: Technologist Type: Progress Notes Filed: 11/24/2023 15:23 Note Text: Radiology Service Progress Note PATIENT NAME: Hanane Rivera DATE OF SERVICE: November 24, 2023 TIME: 3:23 PM PATIENT IDENTITY VERIFICATION COMPLETED USING TWO (2) IDENTIFIERS: Name and Date of confirmed by patient verbally. FALL SCREENING: Has the patient had 2 falls in the last year or 1 fall with injury or currently using an Ambulatory Assistive Device (Walker, Cane, Wheelchair, Crutches, etc.)? No PATIENT GENDER DATA: Female. status: : No status: NO. PATIENT RELEVANT IMPLANT DATA REVIEWED: Not Applicable PATIENT PRESENTS WITH AN IMPLANTABLE OR ATTACHED BINGO FLOATER: No RADIOLOGY DEPARTMENT: General X-ray: Exam(s) Completed: Pelvis X-Ray: Pelvis with Hip Right PERIPHERAL IV DATA: Not applicable SIGNED BY: RT Demetris(R) November 24, 2023 3:[address] [facility] 11-24-2023 Note HNO ID: [id number] Author: SNOW ARO MA Service: ? Author Type: Licensed Esthetician Type: Progress Notes Filed: 11/24/2023 13:52 Note Text: AMB ROOMING INTAKE FLOWSHEET DATA Pain Pain Level: 2 Pain Location: Hip-Right Description: Aching, Dull Duration Amount of Time: 9 Duration Units: Hours Frequency: Intermittent Intervention/Comfort measure: Reposition Patient here today for right hip pain. [facility] 11-04-2023 Note HNO ID: [id number] Author: ERNST KERN MD Service: ? Author Type: Physician Type: Progress Notes Filed: 11/04/2023 14:12 Note Text: Hanane is a 68 year old who presents for an annual gynecologic exam without complaints. Postmenopausal: yes HRT use: No. Last Pap: 07/30/2022 normal HPV: 06/23/2018 negative History of abnormal pap: No Last mammogram: 2023 normal History of abnormal mammogram: No Sexually active: Yes OB History T2 L2 SAB0 IAB0 Ectopic0 Multiple0 Live Births0 Comment: NVD X 2. NO COMPLICATIONS. Rubber Thread Spooler History LMP: 2009, Postmenopausal Age at Menarche: Age at First : Age at Menopause: Rubber Thread Spooler History Comments: Sexual Activity: Yes; Male Contraception: No contraception data on record PAST MEDICAL HISTORY No date: Cystocele No date: Diverticulosis of colon (without mention of hemorrhage) No date: Hemorrhage of rectum and anus No date: Hx of fracture of arm Comment: right forearm No date: Osteoporosis No date: Pure hypercholesterolemia Comment: hdl is 102 in 2017 No date: Rectocele No date: Unspecified closed fracture of ankle Comment: Ankle fracture No date: Unspecified hemorrhoids without mention of complication No date: Uterine prolapsePAST SURGICAL HISTORY No date: APPENDECTOMY 01/09/05: COLONOSCOPY FLX DX W/COLLJ SPEC WHEN PFRMD 08-06-14: COLONOSCOPY FLX DX W/COLLJ SPEC WHEN PFRMD No date: LIGJ DIVJ AND/EXCJ VARICOSE VEIN CLUSTER 1 LEG Comment: Varicose Vein Surgery - No complications 2012: OTHER Comment: right forearm fracture; permanent plates : PAST SURGICAL HISTORY OF Comment: ANKLE 01/2014: PAST SURGICAL HISTORY OF Comment: Uphold sacrospinous hysteropexy.Cystocele repair Rectocele repair FAMILY HISTORY Problem Relation Age of Onset Osteoporosis Mother Hypertension Mother Breast Cancer Mother other (Sarcoidosis) Mother Lipids Father High Cholesterol Diabetes Maternal Grandmother Coronary Artery Disease Maternal Grandmother Coronary Artery Disease Paternal Grandfather SOCIAL HISTORY Social History Tobacco Use Smoking status: Never Smokeless tobacco: Never Vaping Use Vaping status: Never Used Substance Use Topics Alcohol use: Yes Comment: Seldom Drug use: No REVIEW OF SYSTEMS Abdomen: No abdominal pain, nausea, vomiting, diarrhea, or constipation. No bloating, early satiety, indigestion, or increased flatulence. Bladder: No dysuria, gross hematuria, urinary frequency, urinary urgency, or incontinence Breast: No breast lumps, nipple d/c, overlying skin changes, redness or skin retraction Allergies and current medication updated:Yes EXAM: BP 102/68 Ht 5' 4.75 (1.65m) Wt 158 lb (71.7kg) LMP 2009 BMI 26.48 kg/(m2). GENERAL: pleasant, female in no apparent [...] external genitalia normal, normal Bartholin's glands, urethra, [place]'s glands, no vulvar lesions, no cervical lesions, good vaginal support, physiologic discharge present, normal appearing perineal body and perianal region BIMANUAL: uterus normal size, shape and consistency, no adnexal masses, and non-tender RECTOVAGINAL: deferred. NEURO: alert and oriented x3,exam grossly non-focal EXTREMITIES: normal ASSESSMENT/PLAN: 1) Health maintenance: Pap/HPV screening no longer needed Mammogram ordered BMD: followed by PCP 2) Follow up one year or sooner as needed Ernst Kern MD [facility] 11-04-2023 History of Present illness Narrative Hanane is a 68 year old who presents for an annual gynecologic exam without complaints. Postmenopausal: yes HRT use: No. Last Pap: 07/30/2022 normal HPV: 06/23/2018 negative History of abnormal pap: No Last mammogram: 2023 normal History of abnormal mammogram: No Sexually active: Yes OB History T2 L2 SAB0 IAB0 Ectopic0 Multiple0 Live Births0 Comment: NVD X 2. NO COMPLICATIONS. Rubber Thread Spooler History LMP: 2009, Postmenopausal Age at Menarche: Age at First : Age at Menopause: Rubber Thread Spooler History Comments: Sexual Activity: Yes; Male Contraception: No contraception data on record PAST MEDICAL HISTORY No date: Cystocele No date: Diverticulosis of colon (without mention of hemorrhage) No date: Hemorrhage of rectum and anus No date: Hx of fracture of arm Comment: right forearm No date: Osteoporosis No date: Pure hypercholesterolemia Comment: hdl is 102 in 2017 No date: Rectocele No date: Unspecified closed fracture of ankle Comment: Ankle fracture No date: Unspecified hemorrhoids without mention of complication No date: Uterine prolapsePAST SURGICAL HISTORY No date: APPENDECTOMY 01/09/05: COLONOSCOPY FLX DX W/COLLJ SPEC WHEN PFRMD 08-06-14: COLONOSCOPY FLX DX W/COLLJ SPEC WHEN PFRMD No date: LIGJ DIVJ &/EXCJ VARICOSE VEIN CLUSTER 1 LEG Comment: Varicose Vein Surgery - No complications 2011: OTHER Comment: right forearm fracture; permanent plates : PAST SURGICAL HISTORY OF Comment: ANKLE 01/2014: PAST SURGICAL HISTORY OF Comment: Uphold sacrospinous hysteropexy.Cystocele repair Rectocele repair FAMILY HISTORY Problem Relation Age of Onset Osteoporosis Mother Hypertension Mother Breast Cancer Mother other (Sarcoidosis) Mother Lipids Father High Cholesterol Diabetes Maternal Grandmother Coronary Artery Disease Maternal Grandmother Coronary Artery Disease Paternal Grandfather SOCIAL HISTORY Social History Tobacco Use Smoking status: Never Smokeless tobacco: Never Vaping Use Vaping status: Never Used Substance Use Topics Alcohol use: Yes Comment: Seldom Drug use: No REVIEW OF SYSTEMS Abdomen: No abdominal pain, nausea, vomiting, diarrhea, or constipation. No bloating, early satiety, indigestion, or increased flatulence. Bladder: No dysuria, gross hematuria, urinary frequency, urinary urgency, or incontinence Breast: No breast lumps, nipple d/c, overlying skin changes, redness or skin retraction Allergies and current medication updated:Yes EXAM: BP 102/68 Ht 5' 4.75 (1.65m) Wt 158 lb (71.7kg) LMP 2009 BMI 26.48 kg/(m^2). GENERAL: pleasant, female in no apparent distress [...] external genitalia normal, normal Bartholin's glands, urethra, [place]'s glands, no vulvar lesions, no cervical lesions, good vaginal support, physiologic discharge present, normal appearing perineal body and perianal region BIMANUAL: uterus normal size, shape and consistency, no adnexal masses, and non-tender RECTOVAGINAL: deferred. NEURO: alert and oriented x3,exam grossly non-focal EXTREMITIES: normal ASSESSMENT/PLAN: 1) Health maintenance: Pap/HPV screening no longer needed Mammogram ordered BMD: followed by PCP 2) Follow up one year or sooner as needed Ernst Kern MD documented in this encounter [facility] 08-20-2023 Note HNO ID: [id number] Author: MUNIR KEYES MD Service: ? Author Type: Physician Type: Progress Notes Filed: 08/20/2023 10:05 Note Text: Patient presents with: Yearly Exam HPI: Patient presents today for office visit for yearly follow up. Had HSAT 08/25/22 Has mild sleep apnea Sees Dr. Oliveira (Dentist) in [place]. Wears oral device at night . Needs repeat sleep study. When device not in. Snoring, tiredness, frequent awakenings, grinding and has documented sleep apnea. Continues on Fosamax 70 mg weekly. No issues. Using calcium and vit d with it as well. Also doing mag. Due for bone density in Labs done 07/23/23 [facility] (scanned docs) . Had stress test done in last year. Equivocal MVP Was done for shortness of breath last year. Discussed caloric restriction for weight loss. MEDICATIONS: Current Outpatient Medications Medication Sig alendronate (FOSAMAX) 70 mg tablet Take 1 tablet by mouth one time a week. Take with a full glass of water, on an empty stomach; do NOT lie down for 30minutes. Miscellaneous Medical Supply 1 Each as directed. Oral/Dental Appliance for Sleep Apnea MAGNESIUM ORAL Take by mouth. vit B12/intrinsic fact/folate (INTRINSI Q38-[id number] ORAL) Take by mouth. krill oil 500 mg cap Take 1 capsule by mouth once daily. CYANOCOBALAMIN, VITAMIN B-12, (VITAMIN B-12 ORAL) Take 300 mg by mouth once daily. Combo with Folate 400 mg Multivitamin (DAILY MULTIVITAMIN) ORAL Tab Take one(1) tablet daily. CALTRATE-600 PLUS VITAMIN D3 600 MG-200 UNIT TAB Take one(1) tablet two(2) times daily. Current Facility-Administered Medications Medication Dose Route Frequency perflutren lipid microspheres 1.3 mL in NaCl (PF) 0.9% 10 mL injection (DEFINITY) INTRAVENOUS DIRECTED PRN sodium chloride 0.9 % (flush) 10 mL (BD POSIFLUSH) 10 mL INTRAVENOUS DIRECTED PRN ALLERGIES: ALLERGIES No Known Allergies PAST MEDICAL [...] and social history today. REVIEW OF SYSTEMS No chest pain, shortness of breath. No gi or gu issues. All other reviewed and negative other than HPI. HEALTH MAINTENANCE: Reviewed health maintenance issues today and recommended the following in detail. RSV Vaccine(1 - 1-dose 60+ series) Never done Covid-19 Vaccine(2022- season) due on 10/30/2022 Advance Directive Discussion -., daughter as surrogate. Behavioral Health Screening -Behavioral Health Screening PHQ-2 Score: 0 (Lower risk for depression) JEFF-2 Score: 0 (Lower risk for anxiety) Recommendation: no further intervention at this time VITALS: BP 110/66 Pulse 70 Ht 165.1 cm (5' 5) Wt 72.1 kg (159 lb) LMP 2009 SpO2 96% BMI 26.46 kg/m? Last 4 Encounter Wt Readings: Date: Wt: 08/20/2023 72.1 kg (159 lb) 08/13/2022 73.5 kg (162 lb) 07/22/2022 72.6 kg (160 lb 1.6 oz) 12/23/2020 68.9 kg (152 lb) PHYSICAL EXAMINATION: General appearance: Well appearing, alert, in no acute distress, well-hydrated, well nourished. Skin: Skin color, texture, turgor normal, no suspicious rashes or lesions Head: Normocephalic, no masses, lesions, tenderness or abnormalities Lungs: Lungs clear to auscultation. No wheezing, rhonchi, rales Heart: RRR without murmur, gallop, or rubs. No ectopy Abdomen: Normal abdominal exam, Abdomen soft, non-tender. Bowel sounds normal. No masses, organomegaly Extremities: No deformities, edema, skin discoloration, clubbing or cyanosis. Good capillary refill. ASSESSMENT/PLAN: 1. Osteoporosis, unspecified osteoporosis type, unspecified pathological fracture p (more content not included)... [facility] 08-20-2023 History of Present illness Narrative Patient presents with: Yearly Exam HPI: Patient presents today for office visit for yearly follow up. Had HSAT 08/25/22 Has mild sleep apnea Sees Dr. Oliveira (Dentist) in [place]. Wears oral device at night . Needs repeat sleep study. When device not in. Snoring, tiredness, frequent awakenings, grinding and has documented sleep apnea. Continues on Fosamax 70 mg weekly. No issues. Using calcium and vit d with it as well. Also doing mag. Due for bone density in Labs done 07/23/23 [facility] (scanned docs) . Had stress test done in last year. Equivocal MVP Was done for shortness of breath last year. Discussed caloric restriction for weight loss. MEDICATIONS: Current Outpatient Medications Medication Sig alendronate (FOSAMAX) 70 mg tablet Take 1 tablet by mouth one time a week. Take with a full glass of water, on an empty stomach; do NOT lie down for 30minutes. Miscellaneous Medical Supply 1 Each as directed. Oral/Dental Appliance for Sleep Apnea MAGNESIUM ORAL Take by mouth. vit B12/intrinsic fact/folate (INTRINSI [id number] ORAL) Take by mouth. krill oil 500 mg cap Take 1 capsule by mouth once daily. CYANOCOBALAMIN, VITAMIN B-12, (VITAMIN B-12 ORAL) Take 300 mg by mouth once daily. Combo with Folate 400 mg Multivitamin (DAILY MULTIVITAMIN) ORAL Tab Take one(1) tablet daily. CALTRATE-600 PLUS VITAMIN D3 600 MG-200 UNIT TAB Take one(1) tablet two(2) times daily. Current Facility-Administered Medications Medication Dose Route Frequency perflutren lipid microspheres 1.3 mL in NaCl (PF) 0.9% 10 mL injection (DEFINITY) INTRAVENOUS DIRECTED PRN sodium chloride 0.9 % (flush) 10 mL (BD POSIFLUSH) 10 mL INTRAVENOUS DIRECTED PRN ALLERGIES: ALLERGIES No Known Allergies PAST MEDICAL [...] and social history today. REVIEW OF SYSTEMS No chest pain, shortness of breath. No gi or gu issues. All other reviewed and negative other than HPI. HEALTH MAINTENANCE: Reviewed health maintenance issues today and recommended the following in detail. RSV Vaccine(1 - 1-dose 60+ series) Never done Covid-19 Vaccine(2022-24 season) due on 10/30/2022 Advance Directive Discussion -., daughter as surrogate. Behavioral Health Screening -Behavioral Health Screening PHQ-2 Score: 0 (Lower risk for depression) JEFF-2 Score: 0 (Lower risk for anxiety) Recommendation: no further intervention at this time VITALS: BP 110/66 Pulse 70 Ht 165.1 cm (5' 5) Wt 72.1 kg (159 lb) LMP 2009 SpO2 96% BMI 26.46 kg/m Last 4 Encounter Wt Readings: Date: Wt: 08/20/2023 72.1 kg (159 lb) 08/13/2022 73.5 kg (162 lb) 07/22/2022 72.6 kg (160 lb 1.6 oz) 12/23/2020 68.9 kg (152 lb) PHYSICAL EXAMINATION: General appearance: Well appearing, alert, in no acute distress, well-hydrated, well nourished. Skin: Skin color, texture, turgor normal, no suspicious rashes or lesions Head: Normocephalic, no masses, lesions, tenderness or abnormalities Lungs: Lungs clear to auscultation. No wheezing, rhonchi, rales Heart: RRR without murmur, gallop, or rubs. No ectopy Abdomen: Normal abdominal exam, Abdomen soft, non-tender. Bowel sounds normal. No masses, organomegaly Extremities: No deformities, edema, skin discoloration, clubbing or cyanosis. Good capillary refill. ASSESSMENT/PLAN: 1. Osteoporosis, unspecified osteoporosis type, unspecified pathological fracture presence - ICD9: 733.00, ICD10: M81.0 (primary diagnosis) - Reviewed the need for Calcium and Vitamin D supplements and weight bearing exercise as tolerated 2. WILSON (obstructive sleep apnea) - ICD9: 327.23, ICD10: G47.33 - recheck after tx per dentist. - HOME SLEEP APNEA TEST (HSAT) Munir Keyes MD documented in this encounter [facility] [place] 07-02-2023 Telephone encounter Note Orders faxed. Connie Dc MA [facility] 07-02-2023 Miscellaneous Notes Orders faxed. Connie Dc MA I think she needs sent over to hospital. documented in this encounter [facility] 07-02-2023 Telephone encounter Note I think she needs sent over to hospital. [facility] 04-01-2023 Miscellaneous Notes Change of pharmacy. Patient [...] Elizabeth Iraheta LPN. documented in this encounter [facility] 01-27-2023 Miscellaneous Notes Ok to do documented in this encounter [facility] 10-14-2022 Miscellaneous Notes Yes was received. Is now signed and faxed as requested. [facility] asking if pcp received the form for sleep apnea appliance, they faxed to pcp office yesterday, for pcp to sign? Please phone [facility] with reply. documented in this encounter [facility] 09-17-2022 Miscellaneous Notes Fax as requested. Ok, printed. We may have to forward the sleep test results as well Spoke with patient regarding below. Patient states that she had HSAT at [facility] and it was read by Dr. Moore. Reports that it was noted she may benefit from sleep apnea mouth guard and Mauricio at the sleep lab recommended [facility]. Pt states that she would like to try all conservative measure's first and that she doesn't want to see sleep medicine at this time. Pt requesting order for mouthguard impression for sleep apnea be faxed to [facility]. Order pended, please file if agreeable, nursing [...] why they ar even involved. Abdullahi from [facility] states she received order for sleep apnea test but needs an Rx for the sleep apnea machine. Please fax to [phone]. Janice Jordan LPN documented in this encounter [facility] 08-21-2022 Miscellaneous Notes See later mychart messages, going to pharmacy for injections. Bashir Thomas PA-C Can MyChart patient with travel lab results. See scanned documents. Scan on 08/19/2022 9:17 AM by External Provider, YAKELIN: Miscellaneous Lab documented in this encounter [facility] 08-13-2022 Instructions Munir Keyes MD - 08/13/2022 8:42 AM EDT [...] usual activities immediately. documented in this encounter [facility] [place] 08-13-2022 History of Present illness Narrative Patient presents with: Orders: BMD to be done at [facility] HPI: Patient presents today for office visit for follow up. Has never completed bone density test would like to have done at [facility]. Questioning sleep apnea. Sleeps well: No. 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 Going to [facility]. Needs tdap, hep b and mmr titers. Check ears. Has blood flow screening from work to review. Normal. MEDICATIONS: Current Outpatient Medications Medication Sig MAGNESIUM ORAL Take by mouth. vit B12/intrinsic fact/folate (INTRINSI [id number] ORAL) Take by mouth. krill oil 500 [...] ICD9: V49.81, ICD10: Z78.0 - DXA-AXIAL SKELETON Munir Keyes MD documented in this encounter [facility] [place] 04-15-2022 Miscellaneous Notes Labs faxed. Please fax thyroid lab orders to [facility], as requested by patient. Carmen Crowe APRN.RADIUS CORNER MACHINE OPERATOR documented in this encounter [facility] 04-13-2022 Miscellaneous Notes Order faxed Order sheet prepared and to RR to sign. Connie Arias RN documented in this encounter [facility] 07-04-2014 History of Past i llness Narrative Problem Noted Date Resolved Date Screening for intestinal cancer 07/04/2014 07/23/2016 Hemorrhage of rectum and anus 12/22/2004 documented as of this encounter (statuses as of 04/13/2022) [facility] [place] History of Past illness Narrative* Problem Noted Date Resolved Date Screening for intestinal cancer 07/04/2014 07/23/2016 Hemorrhage of rectum and anus 12/22/2004 documented as of this encounter (statuses as of 04/15/2022) [facility] [place] History of Past illness Narrative* Problem Noted Date Resolved Date Screening for intestinal cancer 07/04/2014 07/23/2016 Hemorrhage of rectum and anus 12/22/2004 documented as of this encounter (statuses as of 08/13/2022) [facility] [place] History of Past illness Narrative* Problem Noted Date Resolved Date Screening for intestinal cancer 07/04/2014 07/23/2016 Hemorrhage of rectum and anus 12/22/2004 documented as of this encounter (statuses as of 08/22/2022) [facility] [place] History of Past illness Narrative* Problem Noted Date Diagnosed Date Resolved Date Screening for intestinal cancer 07/04/2014 07/23/2016 Hemorrhage of rectum and anus 12/22/2004 07/23/2016 documented as of this encounter (statuses as of 09/17/2022) [facility] [place] History of Past illness Narrative* Problem Noted Date Diagnosed Date Resolved Date Screening for intestinal cancer 07/04/2014 07/23/2016 Hemorrhage of rectum and anus 12/22/2004 07/23/2016 documented as of this encounter (statuses as of 10/15/2022) [facility] [place] History of Past illness Narrative* Problem Noted Date Diagnosed Date Resolved Date Screening for intestinal cancer 07/04/2014 07/23/2016 Hemorrhage of rectum and anus 12/22/2004 07/23/2016 documented as of this encounter (statuses as of 11/12/2022) [facility] [place] History of Past illness Narrative* Problem Noted Date Diagnosed Date Resolved Date Screening for intestinal cancer 07/04/2014 07/23/2016 Hemorrhage of rectum and anus 12/22/2004 07/23/2016 documented as of this encounter (statuses as of 01/28/2023) [facility] [place] History of Past illness Narrative* Problem Noted Date Diagnosed Date Resolved Date Screening for intestinal cancer 07/04/2014 07/23/2016 Hemorrhage of rectum and anus 12/22/2004 07/23/2016 documented as of this encounter (statuses as of 04/02/2023) [facility] note* Diagnosis Fatigue, unspecified type- Primary [facility] Diagnosis SOB (shortness of breath)- Primary Shortness of breath Screening for viral disease Special screening examination for unspecified viral disease Need for vaccination Need for prophylactic vaccination and inoculation against unspecified single disease WILSON (obstructive sleep apnea) Obstructive sleep apnea (adult) (pediatric) Post-menopausal Asymptomatic postmenopausal status (age-related) (natural) documented [facility] this [facility] noteNo assessment information availableWWayne HealthCare [facility] Work Phone: Evaluation note* Diagnosis WILSON (obstructive sleep apnea)- Primary Obstructive sleep apnea (adult) (pediatric) documented [facility] this [facility]* Diagnosis Osteoporosis, unspecified osteoporosis type, unspecified pathological fracture presence [facility] this [facility]* Diagnosis WILSON (obstructive sleep apnea)- Primary Obstructive sleep apnea (adult) (pediatric) documented [facility] this [facility]* Diagnosis Osteoporosis, unspecified osteoporosis type, unspecified pathological fracture presence documented [facility] this [facility]* Diagnosis Osteoporosis, unspecified osteoporosis type, unspecified pathological fracture presence- Primary Fatigue, unspecified type Medication monitoring encounter Encounter for therapeutic drug monitoring Elevated LDL cholesterol level Pure hypercholesterolemia documented [facility] this [facility]* Diagnosis Osteoporosis, unspecified osteoporosis type, unspecified pathological fracture presence- Primary WILSON (obstructive sleep apnea) Obstructive sleep apnea (adult) (pediatric) documented [facility] this [facility]* Diagnosis Encounter for gynecological examination (general) (routine) without abnormal findings- Primary documented [facility]* Diagnosis Pain in right hip- Primary Pain in joint, pelvic region and thigh documented [facility] this [facility]* Diagnosis Sacroiliac joint dysfunction- Primary Disorders of sacrum documented [facility] this [facility]* Diagnosis Pain in right hip Pain in joint, pelvic region and thigh documented [facility] this [facility]* Diagnosis Dry mouth- Primary Disturbance of salivary secretion Dry eyes Tear film insufficiency, unspecified documented in this encounter [facility] note* Diagnosis Osteoporosis, unspecified osteoporosis type, unspecified pathological fracture presence- Primary documented in this encounter [facility] note* Diagnosis Motion sickness, subsequent encounter- Primary documented in this encounter [facility] note* Diagnosis Osteoporosis, unspecified osteoporosis type, unspecified pathological fracture presence- Primary Screening for lipid disorders Menopausal symptoms Symptomatic menopausal or female climacteric states Hyperlipidemia, unspecified hyperlipidemia type Dyslipidemia Other and unspecified hyperlipidemia documented in this encounter [facility] note* Diagnosis Osteoporosis, unspecified osteoporosis type, unspecified pathological fracture presence- Primary documented in this encounter [facility] for referral (narrative)* Outpatient Procedure (Routine) - Pending Review Specialty Diagnoses / Procedures Referred By Contac t Referred To Contact [facility] [place] Diagnoses SOB (shortness of breath) Procedures STRESS ECHO TREADMILL ECHO TTHRC R-T 2D W/WO M-MODE COMPLETE REST&ST Munir Keyes MD [address] [place] [address] [address] Referral ID Status Reason Start Date Expiration Date Visits Requested Visits Authorized [id number] Pending Review Auto-Generat ed Referral 08/13/2022 08/13/2023 1 1 * Outpatient Procedure (Routine) - Closed Specialty Diagnoses / Procedures Referred By Darielaac t Referred To Contact [facility] Diagnoses SOB (shortness of breath) Procedures ECG COMPLETE ECG ROUTINE ECG W/LEAST 12 LDS W/I&R Munir Keyes MD [address] [place] [address] [address] Referral ID Status Reason Start Date Expiration Date V isits Requested Visits Authorized [id number] Closed Auto-Generate d Referral 08/13/2022 08/13/2023 1 1 * Diagnostic Procedure Only (Routine) - Pending Review Specialty Diagnoses / Procedures Referred By Contac t Referred To [facility] Diagnoses WILSON (obstructive sleep apnea) Procedures HOME SLEEP APNEA TEST (HSAT) SLEEP STD AIRFLOW HRT RATE&O2 SAT EFFORT Munir Pena MD [address] [place] [address] [id number] [place] [address] Referral ID Status Reason Start Date Expiration Date Visits Requested Visits Authorized [id number] Pending Review Auto-Generat ed Referral 08/13/2022 08/13/2023 1 1 [facility] for referral (narrative)* Diagnostic Procedure Only (Routine) - Pending Review Specialty Diagnoses / Procedures Referred By Abhilash tolbert Referred To Contact [facility] [place] Diagnoses WILSON (obstructive sleep apnea) Procedures HOME SLEEP APNEA TEST (HSAT) SLEEP STD AIRFLOW HRT RATE&O2 SAT EFFORT SHAHBAZTT Munir Keyes MD [address] [place] [address] [address] [address] [place] [address] Referral ID Status Reason Start Date Expiration Date Visits Requested Visits Authorized [id number] Pending Review Auto-Generat ed Referral 01/27/2024 1 1 [facility] for referral (narrative)* Diagnostic Procedure Only (Routine) - Pending Review Specialty Diagnoses / Procedures Referred By Abhilash tolbert Referred To Contact [facility] [place] Diagnoses WILSON (obstructive sleep apnea) Procedures HOME SLEEP APNEA TEST (HSAT) SLEEP STD AIRFLOW HRT RATE&O2 SAT EFFORT Munir Pena MD [address] [place] [address] [address] Referral ID Status Reason Start Date Expiration Date Visits Requested Visits Authorized [id number] Pending Review Auto-Generat ed Referral 08/20/2023 08/19/2024 1 1 [facility] for referral (narrative)* Diagnostic Procedure Only (Routine) - New Request Specialty Diagnoses / Procedures Referred By Contac t Referred To Contact [facility] Diagnoses Pain in right hip Procedures XR HIP GENERAL 3V PELV/AP/LAT RIGHT RADEX HIP UNILATERAL WITH PELVIS 2-3 VIEWS Beau Eid V, DO [address] [place] [address] [place] [address] Referral ID Status Reason Start Date Expiration Date Visits Requested Visits Authorized [id number] New Request Auto-Generat ed Referral 11/16/2023 12/15/2024 1 1 [facility] for referral (narrative)No reason for referral information availableWWayne HealthCare Main [facility] Work Phone: Reason for visit Narrative* Diagnostic Procedure Only (Routine) - Closed Specialty Diagnoses / Procedures Referred By Contac t Referred To Contact [facility]R IMAGING Diagnoses Pain in right hip Procedures XR HIP GENERAL 3V PELV/AP/LAT RIGHT RADEX HIP UNILATERAL WITH PELVIS 2-3 VIEWS Beau Eid V, DO [address] [place] [address] [place] [address] Referral ID Status Reason Start Date Expiration Date V isits Requested Visits Authorized [id number] Closed Auto-Generate d Referral 11/16/2023 12/15/2024 1 1 [facility] Advance Directives Advance Directive Response Recorded Date/ Time Advance Directives No October 10:56am Living Will No August 06, 2014 6 :21am Power of Employee Benefits Coordinator No August 06, 2014 6:21am Advance Directive Response Recorded Date/ Time Advance Directives No October 10:56am Chief Complaint and Reason for Visit 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, 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, 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[facility] the event this information is protected by the Federal Confidentiality of Alcohol and Drug Abuse Patient Records regulations: The Federal rules restrict any use of the information to criminally investigate or prosecute any alcohol or drug abuse patient.[facility] the event this information is protected by the Federal Confidentiality of Alcohol and Drug Abuse Patient Records regulations: The Federal rules restrict any use of the information to criminally investigate or prosecute any alcohol or drug abuse patient.[facility] the event this information is protected by the Federal Confidentiality of Alcohol and Drug Abuse Patient Records regulations: The Federal rules restrict any use of the information to criminally investigate or prosecute any alcohol or drug abuse patient.[facility] the event this information is protected by the Federal Confidentiality of Alcohol and Drug Abuse Patient Records regulations: The Federal rules restrict any use of the information to criminally investigate or prosecute any alcohol or drug abuse patient.[facility] the event this information is protected by the Federal Confidentiality of Alcohol and Drug Abuse Patient Records regulations: The Federal rules restrict any use of the information to criminally investigate or prosecute any alcohol or drug abuse patient.[facility] the event this information is protected by the Federal Confidentiality of Alcohol and Drug Abuse Patient Records regulations: The Federal rules restrict any use of the information to criminally investigate or prosecute any alcohol or drug abuse patient.[facility] the event this information is protected by the Federal Confidentiality of Alcohol and Drug Abuse Patient Records regulations: The Federal rules restrict any use of the information to criminally investigate or prosecute any alcohol or drug abuse patient.[facility] the event this information is protected by the Federal Confidentiality of Alcohol and Drug Abuse Patient Records regulations: The Federal rules restrict any use of the information to criminally investigate or prosecute any alcohol or drug abuse patient.[facility] the event this information is protected by the Federal Confidentiality of Alcohol and Drug Abuse Patient Records regulations: The Federal rules restrict any use of the information to criminally investigate or prosecute any alcohol or drug abuse patient.[facility] the event this information is protected by the Federal Confidentiality of Alcohol and Drug Abuse Patient Records regulations: The Federal rules restrict any use of the information to criminally investigate or prosecute any alcohol or drug abuse patient.[facility] the event this information is protected by the Federal Confidentiality of Alcohol and Drug Abuse Patient Records regulations: The Federal rules restrict any use of the information to criminally investigate or prosecute any alcohol or drug abuse patient.[facility] the event this information is protected by the Federal Confidentiality of Alcohol and Drug Abuse Patient Records regulations: The Federal rules restrict any use of the information to criminally investigate or prosecute any alcohol or drug abuse patient.[facility] the event this information is protected by the Federal Confidentiality of Alcohol and Drug Abuse Patient Records regulations: The Federal rules restrict any use of the information to criminally investigate or prosecute any alcohol or drug abuse patient.[facility] [facility] [place]In the event this information is protected by the Federal Confidentiality of Alcohol and Drug Abuse Patient Records regulations: The Federal rules restrict any use of the information to criminally investigate or prosecute any alcohol or drug abuse patient.[facility] [place]woodIn the event this information is protected by the Federal Confidentiality of Alcohol and Drug Abuse Patient Records regulations: The Federal rules restrict any use of the information to criminally investigate or prosecute any alcohol or drug abuse patient.[facility] [place]woodIn the event this information is protected by the Federal Confidentiality of Alcohol and Drug Abuse Patient Records regulations: The Federal rules restrict any use of the information to criminally investigate or prosecute any alcohol or drug abuse patient.[facility] [place]woodIn the event this information is protected by the Federal Confidentiality of Alcohol and Drug Abuse Patient Records regulations: The Federal rules restrict any use of the information to criminally investigate or prosecute any alcohol or drug abuse patient.[facility] [place]woodIn the event this information is protected by the Federal Confidentiality of Alcohol and Drug Abuse Patient Records regulations: The Federal rules restrict any use of the information to criminally investigate or prosecute any alcohol or drug abuse patient.[facility] [place]woodIn the event this information is protected by the Federal Confidentiality of Alcohol and Drug Abuse Patient Records regulations: The Federal rules restrict any use of the information to criminally investigate or prosecute any alcohol or drug abuse patient.[facility] [place]woodIn the event this information is protected by the Federal Confidentiality of Alcohol and Drug Abuse Patient Records regulations: The Federal rules restrict any use of the information to criminally investigate or prosecute any alcohol or drug abuse patient.[facility] [place]woodIn the event this information is protected by the Federal Confidentiality of Alcohol and Drug Abuse Patient Records regulations: The Federal rules restrict any use of the information to criminally investigate or prosecute any alcohol or drug abuse patient.[facility] [place]woodIn the event this information is protected by the Federal Confidentiality of Alcohol and Drug Abuse Patient Records regulations: The Federal rules restrict any use of the information to criminally investigate or prosecute any alcohol or drug abuse patient.[facility] [place]woodIn the event this information is protected by the Federal Confidentiality of Alcohol and Drug Abuse Patient Records regulations: The Federal rules restrict any use of the information to criminally investigate or prosecute any alcohol or drug abuse patient.[facility] [place]woodIn the event this information is protected by the Federal Confidentiality of Alcohol and Drug Abuse Patient Records regulations: The Federal rules restrict any use of the information to criminally investigate or prosecute any alcohol or drug abuse patient.[facility] [place]woodIn the event this information is protected by the Federal Confidentiality of Alcohol and Drug Abuse Patient Records regulations: The Federal rules restrict any use of the information to criminally investigate or prosecute any alcohol or drug abuse patient.[facility] [place]woodIn the event this information is protected by the Federal Confidentiality of Alcohol and Drug Abuse Patient Records regulations: The Federal rules restrict any use of the information to criminally investigate or prosecute any alcohol or drug abuse patient.[facility] [place] Care Teams (unrecognized sec tion and content) Conveyor Feeder Offbearer Relationship Specialty Start Date End Date Munir Keyes MD [address] [facility] [place] [address] PCP - General Family Medicine 07/23/16 Conveyor Feeder Offbearer Relationship Specialty Start Date End Date Munir Keyes MD [address] [facility] [place] [address] PCP - General Family Medicine 07/23/16 Conveyor Feeder Offbearer Relationship Specialty Start Date End Date Munir Keyes MD [address] [facility] [place] [address] PCP - General Family Medicine 07/23/16 Conveyor Feeder Offbearer Relationship Specialty Start Date End Date Munir Keyes MD [address] [facility] [place] [address] PCP - General Family Medicine 07/23/16 Team Status: Active Member Role Status Dates Dr. Munir Keyes MD Family Provider Active Dr. Munir Keyes MD Primary Care Provider Active Team Status: Inactive Member Role Status Dates Dr. Munir Keyes MD Primary Care Provi thomas, Attending Provider, Referring Provider Active Conveyor Feeder Offbearer Relationship Specialty Start Date End Date Munir Keyes MD [address] [facility] [place] [address] PCP - General Family Medicine 07/23/16 Conveyor Feeder Offbearer Relationship Specialty Start Date End Date Munir Keyes MD [address] [facility] [place] [address] PCP - General Family Medicine 07/23/16 Conveyor Feeder Offbearer Relationship Specialty Start Date End Date Munir Keyes MD [address] [facility] [place] [address] PCP - General Family Medicine 07/23/16 Conveyor Feeder Offbearer Relationship Specialty Start Date End Date Munir Keyes MD [address] [place] [address] PCP - General Family Medicine 07/23/16 Conveyor Feeder Offbearer Relationship Specialty Start Date End Date Munir Keyes MD [address] [place] [address] PCP - General Family Medicine 07/23/16 Team Status: Active Member Role Status Dates Dr. Munir Keyes MD Primary Care Provider, Referring Provider Active Dr. Jase Valentine MD Attending Provider Active Team Status: Inactive Member Role Status Dates Dr. Munir Keyes MD Primary Care Provider Active Dr. Ernst Kern MD Attending Provider, Referring Provider Active Conveyor Feeder Offbearer Relationship Specialty Start Date End Date Munir Keyes MD [address] [place] [address] PCP - General Family Medicine 07/23/16 Conveyor Feeder Offbearer Relationship Specialty Start Date End Date Munir Keyes MD [address] [place], [place] [address] PCP - General Family Medicine 07/23/16 Conveyor Feeder Offbearer Relationship Specialty Start Date End Date Munir Keyes MD [address] [place], [place] [address] PCP - General Family Medicine 07/23/16 Conveyor Feeder Offbearer Relationship Specialty Start Date End Date Munir Keyes MD [address] [place], [place] [address] PCP - General Family Medicine 07/23/16 Conveyor Feeder Offbearer Relationship Specialty Start Date End Date Munir Keyes MD [address] [place], [place] [address] PCP - General Family Medicine 07/23/16 Conveyor Feeder Offbearer Relationship Specialty Start Date End Date Munir Keyes MD [address] [facility] [place], [place] [address] PCP - General Family Medicine 07/23/16 Conveyor Feeder Offbearer Relationship Specialty Start Date End Date Munir Keyes MD [address] [place], [place] [address] PCP - General Family Medicine 07/23/16 Conveyor Feeder Offbearer Relationship Specialty Start Date End Date Munir Keyes MD [address] [place] [address] PCP - General Family Medicine 07/23/16 Conveyor Feeder Offbearer Relationship Specialty Start Date End Date Munir Keyes MD [address] [place] [address] PCP - General Family Medicine 07/23/16 Carmen Crowe APRN.RADIUS CORNER MACHINE OPERATOR [address] [place] [address] Cash Controller Family Medicine 02/07/24 Elizabeth Hills APRN.RADIUS CORNER MACHINE OPERATOR [address] [place] [address] Cash Controller Family Medicine 02/07/24 Conveyor Feeder Offbearer Relationship Specialty Start Date End Date Munir Keyes MD [address] [facility] [place] [address] PCP - General Family Medicine 07/23/16 Carmen Crowe APRN.RADIUS CORNER MACHINE OPERATOR [address] [facility] [place] [address] Cash Controller Family Medicine 02/07/24 Elizabeth Hills APRN.RADIUS CORNER MACHINE OPERATOR [address] [place] [address] Cash Controller Family Medicine 02/07/24 Conveyor Feeder Offbearer Relationship Specialty Start Date End Date Munir Keyes MD [address] [place] [address] PCP - General Family Medicine 07/23/16 Carmen Crowe, ILLUMINATOR.RADIUS CORNER MACHINE OPERATOR [address] [facility] [place] [address] Cash Controller Family Medicine 02/07/24 Elizabeth Hills ILLUMINATOR.RADIUS CORNER MACHINE OPERATOR [address] [place] [address] [facility] 02/07/24 Conveyor Feeder Offbearer Relationship Specialty Start Date End Date Munir Keyes MD [address] [place] [address] PCP - General Family Medicine 07/23/16 Carmen Crowe ILLUMINATOR.RADIUS CORNER MACHINE OPERATOR [address] [facility] [place] [address] Cash Controller Family Medicine 02/07/24 Elizabeth Hills ILLUMINATOR.RADIUS CORNER MACHINE OPERATOR [address] [place] [address] Cash Controller Family Medicine 02/07/24 Conveyor Feeder Offbearer Relationship Specialty Start Date End Date Munir Keyes MD [address] [place] [address] PCP - General Family Medicine 07/23/16 Carmen Crowe ILLUMINATOR.RADIUS CORNER MACHINE OPERATOR [address] [place] [address] [facility] 02/07/24 Elizabeth Hills, ILLUMINATOR.RADIUS CORNER MACHINE OPERATOR [address] [place], [place] [address] [facility] 02/07/24 Conveyor Feeder Offbearer Relationship Specialty Start Date End Date Munir Keyes MD [address] [place], [place] [address] PCP - General Family Medicine 07/23/16 Carmen Crowe, ILLUMINATOR.RADIUS CORNER MACHINE OPERATOR [address] [place], [place] [id number] [facility] 02/07/24 Elizabeth Hills, ILLUMINATOR.RADIUS CORNER MACHINE OPERATOR [address] [place], [place] [address] [facility] 02/07/24 Team Status: Active Member Role Status Dates Dr. Munir Keyes MD Primary Care Provider Active Team Status: Inactive Member Role Status Dates Dr. Munir Keyes MD Primary Care Provider Active Start: March 06, 2024 End: March 06, 2024 Dr. Munir Keyes MD Attending Provider Active Start: March 06, 2024 End: March 06, 2024 Dr. Munir Keyes MD Referring Provider Active Start: March 06, 2024 End: March 06, 2024 Team Status: Inactive Member Role Status Dates Dr. Munir Keyes MD Primary Care Provider Active Start: May 15, 2024 End: May 15, 2024 CHRIS Castro Attending Provider Active Sta rt: May 15, 2024 End: May 15, 2024 CHRIS Castro Referring Provider Active Sta rt: May 15, 2024 End: May 15, 2024 Conveyor Feeder Offbearer Relationship Specialty Start Date End Date Munir Keyes MD [address] [place] [address] PCP - General Family Medicine 07/23/16 Carmen Crowe APRN.RADIUS CORNER MACHINE OPERATOR [address] [place] [address] [facility] 02/[facility]24 Elizabeth Hills APRN.RADIUS CORNER MACHINE OPERATOR [address] [place], [place] [address] [facility] 02/07/24 Conveyor Feeder Offbearer Relationship Specialty Start Date End Date Munir Keyes MD [address] [place] [address] PCP - General Family Medicine 07/23/16 Carmen Crowe APRN.RADIUS CORNER MACHINE OPERATOR [address] [place] [address] [facility] 02/07/24 Elizabeth Hills APRN.RADIUS CORNER MACHINE OPERATOR [address] [place], [place] [address] [facility] 02/07/24 Reason for Visit (unrecogniz ed section and content) Reason Comments Orders BMD to be done at [facility] Reason Comments Results Reason Comments Rx for Sleep Apnea Machine Reason Comments Form for sleep apnea appliance Reason Onset Date Comments Refill Request 04/01/2023 Reason Comments Yearly Exam Reason Comments Yearly Exam Reason Comments Right Hip Pain Reason Comments Imm/Inj Reason Comments Insurance Authorization Goals (unrecognized section and content) Goals may be documented in a n alternate sectionGoals may be documented in an alternate sectionGoals may be documented in an alternate sectionGoals may be documented in an alternate sectionGoals may be documented in an alternate section INFORMATION SOURCE (unrecogn ized section and content) DATE CREATED AUTHOR 04/26/[address] [facility] DATE CREATED AUTHOR AUTHOR'S ORGANIZ ATION 08/24/2024 [facility] FOR RECORDS PERTAINING TO PATIENTS WHO ARE [...] BE BASED ON THE PRIMARY CLINICAL RECORDS. [facility] [employer], [facility]. provides no warranty or guarantee of the accuracy or completeness of information in this document.
== END | disposition home or self-care (01) ==
PROVIDERS: PCP Family Medicine; Referring Provider Clinical Nurse Specialist Adult Health; Visit Provider Clinical Nurse Specialist Adult Health
DX: M81.0 Age-related osteoporosis without current pathological fracture (principal); Z13.220 Encounter for screening for lipoid disorders; N95.1 Menopausal and female climacteric states; E78.5 Hyperlipidemia, unspecified
CPT/HCPCS: 36415; 82306

== ENCOUNTER → 2024-11-29 | Outpatient (CLI) | payer MEDICARE, BC, SELFPAY ==
--- NOTE | 2024-11-29 15:49 | BD_ITS ---
PROCEDURE: DEXA BONE DENSITY STUDY 11/29/2024 REASON FOR EXAM: F, age 69 y/o . Postmenopausal screening. TECHNIQUE: Procedure Code: BDDBD Modality: DX Procedure: DEXA BONE DENSITY STUDY COMPARISON: 2022 FINDINGS: BMD and T-SCORES Lumbar spine: 0.815 g/cm2, T-score -2.1 Levels: L1 through L4 Change from prior: Increase of 10.9%. Left femoral neck: 0.680 g/cm2, T-score -1.5 Femoral neck comparison data not recommended for monitoring change. Prior T-score Left total hip: 0.824 g/cm2, T-score -1.0 Change from prior: Decrease of 1.3%. Right femoral neck: 0.682 g/cm2, T-score -1.5 Femoral neck comparison data not recommended for monitoring change. Prior T-score Right total hip: 0.815 g/cm2, T-score -1.0 Change from prior: Increase of 3.3%. The World Health Organization has defined the following categories based on bone density: Normal bone density: T-score equal to or greater than -1.0 Osteopenia: T-score between -1.0 and -2.5 Osteoporosis: T-score equal to or less than -2.5 FRAX (or Comparable) Fracture Risk Assessment: 10 Year Probability of Fracture: Major Osteoporotic Fracture: 9.5% Hip Fracture: 1.1% (Note: FRAX is not to be reported in setting of normal range bone density, osteoporosis on DEXA, known history of osteoporosis, prior osteoporotic hip or vertebral fracture, or for any patient undergoing pharmacological treatment for bone loss.) The National Osteoporosis Foundation (NOF) recommends pharmacological treatment for patients with a FRAX 10-year risk of 3% or higher for a hip fracture, or 20% or higher for a major osteoporotic fracture, to prevent osteoporosis and reduce fracture risk. The patient does not meet the pharmacological treatment recommendations for prevention of osteoporosis. BD/Dexa Bone Density Study IMPRESSION: OSTEOPENIA. Recommend follow-up as clinically warranted. Reading Location: [id number]
== END | disposition home or self-care (01) ==
LOC: OPBD 15:45
PROVIDERS: PCP Family Medicine; Referring Provider Family Medicine; Visit Provider Family Medicine
DX: M81.0 Age-related osteoporosis without current pathological fracture (principal)
CPT/HCPCS: 77080